=== PATIENT | female | born 1955 | race Caucasian/White ===

== ENCOUNTER 2018-10-05 08:29 | Inpatient (IN) ==
[2018-10-05] MEDS ORDERED: PROCHLORPERAZINE 5 MG in SYRINGE 4 ML IV ONE (09:17)
[2018-10-05] MEDS ORDERED: MoRPHine SULFATE 4 MG/ML 1 ML CARP\\VIAL IV STA (09:17)
[2018-10-05] MEDS ORDERED: PROCHLORPERAZINE 5 MG/ML 2 ML VIAL ONE (09:24)
[2018-10-05] MEDS ORDERED: MoRPHine SULFATE 2 MG/ML CARP ONE (09:26)
[2018-10-05] MEDS ORDERED: SODIUM CHLORIDE 0.9% 1000ML 1,000 ML IV SCH (09:30)
[2018-10-05 09:37] LABS: Alanine Aminotransferase 31 U/L (12-78); Albumin Level 2.5 gm/dl (3.4-5.0); Aspartate Aminotransferase 29 U/L (15-37); Blood Urea Nitrogen 6 mg/dl (7-18); Calcium 7.7 mg/dl (8.5-10.1); Carbon Dioxide 20 mmol/L (21-32); Chloride 105 mmol/L (98-107); Est GFR (African American) 113.5; Glucose 141 mg/dl (70-99); Potassium 2.8 mmol/L (3.5-5.1); Sodium 138 mmol/L (136-145)
[2018-10-05 09:40] LABS: Albumin Globulin Ratio 0.8 (0.9-2); Alkaline Phosphatase 97 U/L (45-117); Bilirubin,Total 0.8 mg/dl (0.2-1); Globulin 3.3 gm/dl (2.5-4.0); Total Protein 5.8 gm/dl (6.4-8.2)
[2018-10-05] MEDS ORDERED: IOVERSOL 100ml IV PRN (09:59)
[2018-10-05 10:00] LABS: Hematocrit (blood only) 34.6 % (37-47); Hemoglobin 11.4 g/dL (12.0-16.0); Mean Corpuscular Hgb Conc 32.9 g/dL (32-36); Mean Platelet Volume 9.9 fL (7.4-10.4); Nucleated RBC # (auto) 0.05 K/uL (0-0); Nucleated RBC % (auto) 4.2 %; Platelet Count 134 K/uL (130-400); RDW Coefficient of Variation 21.3 % (11.5-14.5); RDW Standard Deviation 62.8 fL (36.4-46.3); Red Blood Count 4.17 M/uL (4.2-5.4); White Blood Count 1.26 K/uL (4.8-10.8)
--- NOTE | 2018-10-05 10:11 | CT Scan Report ---
CT abd pelvis IV con only CT DOSE: 377.09 mGy.cm HISTORY: Pain lower abd pain, diarrhea, vomiting TECHNIQUE: Multiaxial CT images of the abdomen and pelvis were performed following the use of intrave nous contrast. A dose lowering technique was utilized adhering to the principles of ALARA. COMPARISON STUDY: 04/26/2018 FINDINGS: Lung bases are clear. Several calcified granulomas posterior left costophrenic angle. There is trace map. Splenic free fluid. Findings of mild fatty replacement of the liver. No evidence for gallbladder distention. Kidneys enhance uniformly. There are several microcysts present. No evidence for hydronephrosis. Evaluation of the bowel pattern shows evidence for considerable wall thickening of the mid to distal small bowel. This is most prominent throughout the distal ileum extending to the right right ileoceca l valve. There is small amount of reactive free fluid within the left and to lesser extent right paracolic gut ter. The colonic bowel pattern in general is nonobstructive. There is no significant wall thickening of th e colon. The appearance most consistent with that of a diffuse small bowel inflammatory process possibly inclu ding the possibility of diffuse Crohn's disease. No evidence for abscess collection or obstructive ch dacia. Bladder is midline. There are no contained calcifications. IMPRESSION: 1. Significant wall thickening and inflammatory change of the mid to distal small bowel. 2. Moderate reactive free fluid within the left and to a lesser extent right paracolic gutter as well as a trace amount in the perisplenic region. 3. No evidence for abscess collection or obstruction. 4. Diagnostic considerations must include a diffuse small bowel inflammatory process and/or an extens ko case of Crohn's disease. The above report was generated using voice recognition software. It may contain grammatical, syntax or spelling errors. Electronically signed by: Chinedu Cochran M.D. 10/05/2018 10:09 AM
[2018-10-05 11:01] LABS: Anisocytosis Present; Basophils # (auto) 0.01 K/uL (0-0.2); Basophils % (auto) 0.8 %; Dohle Bodies 1+; Immature Granulocytes # (auto) 0.02 K/uL (0.00-0.02); Immature Granulocytes % (auto) 1.6 %; Lymphocytes # (auto) 0.39 K/uL (1.2-3.4); Monocytes # (auto) 0.68 K/uL (0.11-0.59); Neutrophils # (auto) 0.16 K/uL (1.4-6.5); Neutrophils % (auto) 12.6 %
[2018-10-05 11:29] LABS: Appearance Urine Clear (Clear); Bacteria Urine Automated Negative (Negative); Bilirubin Urine Negative (Negative); Blood Urine Negative (Negative); Color Urine Yellow; Epithelial Cell Urine Auto 20-30 /lpf (0-5); Glucose Urine UA 2+ (Negative); Leukocyte Esterase Urine Negative (Negative); Nitrite Urine Negative (Negative); Protein Urine Trace (Negative); RBC Urine Automated 0-4 /hpf (0-4); Specific Gravity Urine 1.044 (1.000-1.030); Urobilinogen Urine Negative (Negative); pH Urine 5.5 (4.5-7.5)
[2018-10-05 11:34] LABS: Ketones Urine 3+ (Negative)
[2018-10-05] MEDS ORDERED: MoRPHine SULFATE 2 MG/ML CARP IV STA (12:04)
[2018-10-05] MEDS ORDERED: CEFEPIME 2,000 MG in SYRINGE 7.5 ML IV STA (12:56)
[2018-10-05] MEDS ORDERED: metroNIDAZOLE 500 MG/100 ML BAG IV STA (12:56)
--- NOTE | 2018-10-05 13:21 | Emergency Department Note ---
Entered by Yolanda Bennett acting as a scribe for Taras Church DO History of Present Illness General Chief complaint: Abdominal Pain Stated complaint: SEVERE ABD PAIN X 1 WEEK,NASUSEA AND VOMITING Time Seen by Provider: 10/05/18 08:54 Source: patient History of Present Illness Provider complaint: abdominal pain Onset (ago): week(s) 1 Location: abdomen Maximum Pain Intensity: 2 Quality: + other (pain) Associated symptoms: + nausea/vomiting, + weakness and + other (diarrhea); no fever/chills The patient is a 63 year old female who presents to the Emergency Room with complaints of abdominal pain beginning 1 week ago. The patient states that she has had "rumbling" in her stomach. She denies having any fevers but does report having diarrhea several times per day. She reports that she did have diarrhea this morning around 0300. The patient also reports that she was vomiting but states that she has not vomited since yesterday evening. She also reports feeling weak. The patient states that she was seen in a cancer treatment center yesterday and was given fluids. The patient states that she is getting chemotherapy in 2 days. She reports that she started taking Compazine as she thinks that the Zofran that she was taking was making her sick. The patient states that her daughter has been sick. Home Medications Home Medications Medication Instructions Recorded Confirmed Type albuterol sulfate [Ventolin HFA] 2 puff INHALATION Q6H PRN 05/12/18 10/05/18 History cholecalciferol (vitamin D3) 5,000 unit PO 4XWK 05/12/18 10/05/18 History [Vitamin D3] cholecalciferol (vitamin D3) 10,000 unit PO 3XWK 05/12/18 10/05/18 History [Vitamin D3] cyanocobalamin (vitamin B-12) 5,000 mcg SUBLINGUAL QAM 05/12/18 10/05/18 History montelukast [Singulair] 10 mg PO QAM 05/12/18 10/05/18 History fluticasone-vilanterol [Breo 1 puff INHALATION QAM 10/05/18 10/05/18 History Ellipta] potassium chloride 0 meq IV UD 10/05/18 10/05/18 History prochlorperazine Edisylate 0 mg IV UD 10/05/18 10/05/18 History prochlorperazine maleate 10 mg PO Q6H PRN 10/05/18 10/05/18 History [Compazine] Allergies Allergy/AdvReac Type Severity Reaction Status Date / Time doxycycline Allergy Severe SOB Verified 10/05/18 09:46 Penicillins Allergy Severe RASH/HIVES Verified 10/05/18 09:46 ciprofloxacin [From Cipro] AdvReac Severe NAUSEA/VOMI Verified 10/05/18 09:46 TING aspirin AdvReac Unknown H/O Verified 10/05/18 09:46 BLEEDING GASTRIC ULCER Past Med/Surg History Medical History Asthma Cancer COLO-RECTAL CANCER (MARCH 2018). TREATMENT TO START 06/17/18 Peptic ulcer disease H/O BLEEDING ULCER +40 YEARS AGO Lung nodule Left -- SURGICALLY REMOVED 05/14/18. Surgical History H/O nasal polypectomy (Acute) x2 History of endoscopic sinus surgery History of colonoscopy History of section History of esophagogastroduodenoscopy (EGD) History of lobectomy of lung LEFT LOWER LOBECTOMY Social History Visual Impairment: No Limitations Beliefs That Will Affect Care: None Current Living Situation: Family Feels Safe at Home: Yes Smoking Status: Never smoker Hx Alcohol Use: No Hx Substance Use: No Review of Systems See HPI for pertinent positives & negatives. and A total of 10 systems reviewed and were otherwise negative Physical Exam Vital Signs Vital Signs - 24 hr 10/05/18 08:33 10/05/18 09:08 10/05/18 10:28 Temperature 37.8 C H Temperature Source Oral Oral Sepsis Recent Fever Within 48 Hours No Sepsis Action Taken by Nursing No Action Required Pulse Rate 96 H Pulse Rate [Apical] 88 Respiratory Rate 16 18 Respiratory Effort / Characteristics Non-Labored Non-Labored Respiratory Depth Normal Normal Blood Pressure 146/69 H Blood Pressure [Right Arm] 140/89 Blood Pressure Mean 94 Blood Pressure Mean [Right Arm] 106 Blood Pressure Position [Right Arm] Lying Pulse Oximetry 97 96 Oxygen Delivery Method Room Air Room Air 10/05/18 12:10 Temperature Temperature Source Sepsis Recent Fever Within 48 Hours Sepsis Action Taken by Nursing Pulse Rate Pulse Rate [Apical] 111 H Respiratory Rate 22 Respiratory Effort / Characteristics Respiratory Depth Blood Pressure Blood Pressure [Right Arm] 178/80 H Blood Pressure Mean Blood Pressure Mean [Right Arm] 112 Blood Pressure Position [Right Arm] Pulse Oximetry 97 Oxygen Delivery Method Room Air CONSTITUTIONAL/VITAL SIGNS: Reviewed / noted above. GENERAL: Non-toxic in appearance. INTEGUMENTARY: Warm, dry, and [place]. HEAD: Normocephalic. EYES: without scleral icterus or trauma. ENT/OROPHARYNX: clear and moist. LYMPHADENOPATHY/NECK: Is supple without lymphadenopathy or meningismus. RESPIRATORY: Lungs clear and equal. CARDIOVASCULAR: Regular rate and rhythm. GI/ABDOMEN: Soft. Mild lower abdominal tenderness. No organomegaly or pulsatile mass. No rebound or guarding. Normal bowel sounds. EXTREMITIES: Warm and well perfused. BACK: No CVA tenderness. NEUROLOGICAL: Intact without focal deficits. PSYCHIATRIC: normal affect. MUSCULOSKELETAL: Normally developed with good muscle tone. Course 0859: Past medical records reviewed. The patient was evaluated in room A3, and a complete history and physical examination were performed. 1250: I updated the patient who verbalized agreement and understanding of the treatment plan. 1316: I discussed the patient's case with Dr. Boris Khalil who will evaluate the patient for further management. Consultations Consultation #1: Dr. Boris Khalil Time: 13:16 Administered Medications Ioversol (Optiray 320 100ml) 94 ml IV ONCE PRN PRN Reason: Interaction Checking Stop: 10/09/18 09:58 Last Admin: 10/05/18 10:00 Dose: 94 ml Documented by: [id number] Discontinued Medications Prochlorperazine 5 mg/ Syringe 5 mls @ 5 mls/min IV ONE ONE Stop: 10/05/18 09:18 Last Admin: 10/05/18 09:33 Dose: 5 mls/min Documented by: [id number] Sodium Chloride (Nss 1000ml) 1,000 mls @ 999 mls/hr IV .Q1H1M BEV Stop: 10/05/18 10:30 Last Infusion: 10/05/18 11:18 Dose: 0 mls/hr Documented by: [id number] Admin: 10/05/18 09:34 Dose: 999 mls/hr Documented by: [id number] Morphine Sulfate (Morphine Sulfate) 2 mg IV NOW STA Stop: 10/05/18 09:18 Last Admin: 10/05/18 09:34 Dose: Not Given Documented by: [id number] Morphine Sulfate (Morphine Sulfate) Confirm Administered Dose 2 mg .ROUTE .STK- MED ONE Stop: 10/05/18 09:27 Last Admin: 10/05/18 09:33 Dose: 2 mg Documented by: [id number] Morphine Sulfate (Morphine Sulfate) 2 mg IV NOW STA Stop: 10/05/18 12:05 Last Admin: 10/05/18 12:08 Dose: 2 mg Documented by: [id number] Prochlorperazine (Compazine) Confirm Administered Dose 10 mg .ROUTE .STK-MED ONE Stop: 10/05/18 09:25 Last Admin: 10/05/18 09:33 Dose: Not Given Documented by: [id number] Medical Decision Making Differential Diagnosis Differential considered: pancreatitis, hepatitis, or acute cholecystitis, AAA, UTI, pyelonephritis, kidney stones, appendicitis, diverticulitis, shingles, bowel obstruction mesenteric ischemia, ovarian torsion, ruptured ovarian cyst. Medical Records Attestation: I reviewed the patient's medical records. Home Medications Current Medication List: was personally reviewed by me Laboratory Data Attestation: I reviewed the patient's lab results. Result diagrams: 10/05/18 08:50 10/05/18 08:50 Lab Results 10/05/18 10/05/18 10/05/18 Range/Units 08:50 08:50 11:10 WBC 1.26 L (4.8-10.8) K/uL RBC 4.17 L (4.2-5.4) M/uL Hgb 11.4 L (12.0-16.0) g/dL Hct 34.6 L (37-47) % MCV 83.0 (80-100) fL MCH 27.3 (25-34) pg MCHC 32.9 (32-36) g/dL RDW Std Deviation 62.8 H (36.4-46.3) fL RDW Coeff of Mariaelena 21.3 H (11.5-14.5) % Plt Count 134 (130-400) K/uL MPV 9.9 (7.4-10.4) fL Immature Gran % (Auto) 1.6 % Neut % (Auto) 12.6 % Lymph % (Auto) 31.0 % Marion % (Auto) 54.0 % Eos % (Auto) 0.0 % Baso % (Auto) 0.8 % Immature Gran # (Auto) 0.02 (0.00-0.02) K/uL Neut # (Auto) 0.16 L* (1.4-6.5) K/uL Lymph # (Auto) 0.39 L (1.2-3.4) K/uL Marion # (Auto) 0.68 H (0.11-0.59) K/uL Eos # (Auto) 0.00 (0-0.5) K/uL Baso # (Auto) 0.01 (0-0.2) K/uL Absolute Nucleated RBC 0.05 H (0-0) K/uL Nucleated RBC % (auto) 4.2 % Dohle Bodies 1+ Anisocytosis Present Sodium 138 (136-145) mmol/L Potassium 2.8 L (3.5-5.1) mmol/L Chloride 105 (98-107) mmol/L Carbon Dioxide 20 L (21-32) mmol/L Anion Gap 13.0 H (3-11) BUN 6 L (7-18) mg/dl Creatinine 0.57 L (0.6-1.2) mg/dl Est Cr Clr Drug Dosing Not Reportable Est GFR ( Amer) 113.5 Est GFR (Non-Af Amer) 98.0 BUN/Creatinine Ratio 10.0 (10-20) Glucose 141 H (70-99) mg/dl Calcium 7.7 L (8.5-10.1) mg/dl Total Bilirubin 0.8 (0.2-1) mg/dl AST 29 (15-37) U/L ALT 31 (12-78) U/L Alkaline Phosphatase 97 (45-117) U/L Total Protein 5.8 L (6.4-8.2) gm/dl Albumin 2.5 L (3.4-5.0) gm/dl Globulin 3.3 (2.5-4.0) gm/dl Albumin/Globulin Ratio 0.8 L (0.9-2) Lipase 32 L (73-393) U/L Urine Color Yellow Urine Appearance Clear (Clear) Urine pH 5.5 (4.5-7.5) Ur Specific Fowler 1.044 H (1.000-1.030) Urine Protein Trace H (Negative) Urine Glucose (UA) 2+ H (Negative) Urine Ketones 3+ H (Negative) Urine Blood Negative (Negative) Urine Nitrite Negative (Negative) Urine Bilirubin Negative (Negative) Urine Urobilinogen Negative (Negative) Ur Leukocyte Esterase Negative (Negative) Urine WBC (Auto) 1-5 (0-5) /hpf Urine RBC (Auto) 0-4 (0-4) /hpf U Hyaline Cast (Auto) 1-5 (0-5) /lpf U Epithel Cells (Auto) 20-30 H (0-5) /lpf Urine Bacteria (Auto) Negative (Negative) Imaging Data Radiologist's Impression: Radiology results as stated below per my review and the radiologist's interpretation: CT abd pelvis IV con only CT DOSE: 377.09 mGy.cm HISTORY: Pain lower abd pain, diarrhea, vomiting TECHNIQUE: Multiaxial CT images of the abdomen and pelvis were performed following the use of intravenous contrast. A dose lowering technique was utilized adhering to the principles of ALARA. COMPARISON STUDY: 04/26/2018 FINDINGS: Lung bases are clear. Several calcified granulomas posterior left costophrenic angle. There is trace map. Splenic free fluid. Findings of mild fatty replacement of the liver. No evidence for gallbladder distention. Kidneys enhance uniformly. There are several microcysts present. No evidence for hydronephrosis. Evaluation of the bowel pattern shows evidence for considerable wall thickening of the mid to distal small bowel. This is most prominent throughout the distal ileum extending to the right right ileocecal valve. There is small amount of reactive free fluid within the left and to lesser extent right paracolic gutter. The colonic bowel pattern in general is nonobstructive. There is no significant wall thickening of the colon. The appearance most consistent with that of a diffuse small bowel inflammatory process possibly including the possibility of diffuse Crohn's disease. No evidence for abscess collection or obstructive change. Bladder is midline. There are no contained calcifications. IMPRESSION: 1. Significant wall thickening and inflammatory change of the mid to distal small bowel. 2. Moderate reactive free fluid within the left and to a lesser extent right paracolic gutter as well as a trace amount in the perisplenic region. 3. No evidence for abscess collection or obstruction. 4. Diagnostic considerations must include a diffuse small bowel inflammatory process and/or an extensive case of Crohn's disease. The above report was generated using voice recognition software. It may contain grammatical, syntax or spelling errors. Electronically signed by: Chinedu Cochran M.D. 10/05/2018 10:09 AM Blood Pressure Blood Pressure Findings: Elevated blood pressure Blood Pressure Disposition: further management by hospitalist ELISA Ngo This is a 63-year-old female who presents to the ED with a chief complaint of diffuse abdominal pain for the past week. The patient states that she developed diarrhea as well as some nausea and vomiting the past few days. She states that she had some Zofran at home and use this as well as some Compazine that helped her vomiting a little. Nothing has helped the diarrhea. The patient has a history of rectal cancer and is currently undergoing chemotherapy with Dr. Freeman. She has some diffuse abdominal tenderness on exam. White blood cell count was 1.2 with a absolute neutrophil count of 160. Temperature today is 37.8. She reports a fever of 100 last night. Potassium was 2.8. Urine reveals 3+ ketones. A CT scan of the abdomen pelvis reveals some inflammation of the mid and distal small bowel as well as some moderate reactive free fluid in the left greater than right pericolic letters. The findings could suggest an extensive Crohn's versus a small bowel inflammatory process. The patient was treated with IV fluids as well as some IV morphine and IV Compazine. She was treated with IV cefepime and IV Flagyl. She will be seen by the hospitalist for further inpatient evaluation and care. Impression & Plan Febrile neutropenia, Vomiting, Diarrhea, Ileitis Discharge Plan Visit Data Chief Complaint: Abdominal Pain Stated Complaint: SEVERE ABD PAIN X 1 WEEK,NASUSEA AND VOMITING ED Provider: Taras Church Discharge Problem: Febrile neutropenia, Vomiting, Diarrhea, Ileitis Patient Disposition: Being Evaluated by Hospitalist Forms Stand Alone Forms: Call Back Authorization, [employer] Prescriptions Prescriptions: No Action prochlorperazine maleate [Compazine] 10 mg Tablet 10 mg PO Q6H PRN (Reason: Nausea) RF: 0 Breo Ellipta 100-25 mcg/dose blister with device 1 puff Inhalation QAM RF: 0 potassium chloride 2 mEq/mL Solution IV UD RF: 0 prochlorperazine Edisylate 10 mg/2 mL (5 mg/mL) Solution IV UD RF: 0 montelukast [Singulair] 10 mg Tablet 10 mg PO QAM RF: 0 albuterol sulfate [Ventolin HFA] 90 mcg/actuation Hfa Aerosol Inhaler 2 puff INHALATION Q6H PRN (Reason: SOB) RF: 0 cholecalciferol (vitamin D3) [Vitamin D3] 5,000 unit Tablet 5,000 unit PO 4XWK RF: 0 cholecalciferol (vitamin D3) [Vitamin D3] 5,000 unit Tablet 10,000 unit PO 3XWK RF: 0 cyanocobalamin (vitamin B-12) 3,000 mcg/mL Drops 5,000 mcg SUBLINGUAL QAM RF: 0 Referrals Referrals: Argentina Mcneill D.O. [Primary Care Provider] - Discharge Problem: Vomiting Qualifiers: Vomiting type: unspecified Vomiting Intractability: unspecified Nausea presence: with nausea Qualified Code(s): R11.2 - Nausea with vomiting, unspecified Diarrhea Qualifiers: Diarrhea type: unspecified type Qualified Code(s): R19.7 - Diarrhea, unspecified The scribe's documentation has been prepared under my direction and personally reviewed by me in its entirety. I confirm that the note above accurately reflects all work, treatment, procedures, and medical decision making performed by me.
--- NOTE | 2018-10-05 13:54 | History & Physical Report ---
Date of Service October 05, 2018 Assessment & Plan (1) Febrile neutropenia: 63 y/o F Hx asthma, B12 deficiency, colorectal CA with lung mets - receiving chemotherapy. Presents with nausea/vomiting, abdominal pain and fever. She had a CT on arrival to the ER which displayed mid and distal small bowel inflammation which was hedged as infectious vs inflammatory, possibly Crohn's. She denies diarrhea or constipation presently. Initial labs are notable for neutropenia and hypokalemia. 1) Neutopenia and fever - may be a GI source/enteritis - We will place her on Cipro, Flagyl and have provided Vanc pending culture results due to her PORT and neutropenia. If the GI issues do not resolve with Abx, she will need GI evaluation for a chronic process. 2) Neutropenia - rectal CA - will place on precautions and consult her oncologist 3) Hypokalemia - K and Mag provided 3) Astma - no evidence of exacerbation - cont prescribed inhalers 4) B12 deficiency - PO meds held until AM reassessment Full code - Heparin prophylaxis Total time for this admit including review of pabs, meds, imaging, records - discussion with pt and ER attending - 38 min Present on Admission?: Yes History of Present Illness Chief Complaint: neutropenic fever Primary Care Provider: Argentina Mcneill 63 y/o F Hx asthma, B12 deficiency, colorectal CA with lung mets - receiving chemotherapy. Presents with nausea/vomiting, abdominal pain and fever. She had a CT on arrival to the ER which displayed mid and distal small bowel inflammation which was hedged as infectious vs inflammatory, possibly Crohn's. She denies diarrhea or constipation presently. Initial labs are notable for neutropenia and hypokalemia. PMH: 1) Colorectal CA with lung mets 2) Asthma 3) B12 deficiency Surgical: Mediport L chest Social: Does not drink or smoke Family: Mother due to ovarian CA Father broke his hip at age 90 and did not recover Allergies Allergy/AdvReac Type Severity Reaction Status Date / Time doxycycline Allergy Severe SOB Verified 10/05/18 09:46 Penicillins Allergy Severe RASH/HIVES Verified 10/05/18 09:46 ciprofloxacin [From Cipro] AdvReac Severe NAUSEA/VOMI Verified 10/05/18 09:46 TING aspirin AdvReac Unknown H/O Verified 10/05/18 09:46 BLEEDING GASTRIC ULCER Home Medications Home Medications Medication Instructions Recorded Confirmed Type albuterol sulfate [Ventolin HFA] 2 puff INHALATION Q6H PRN 05/12/18 10/05/18 History cholecalciferol (vitamin D3) 5,000 unit PO 4XWK 05/12/18 10/05/18 History [Vitamin D3] cholecalciferol (vitamin D3) 10,000 unit PO 3XWK 05/12/18 10/05/18 History [Vitamin D3] cyanocobalamin (vitamin B-12) 5,000 mcg SUBLINGUAL QAM 05/12/18 10/05/18 History montelukast [Singulair] 10 mg PO QAM 05/12/18 10/05/18 History fluticasone-vilanterol [Breo 1 puff INHALATION QAM 10/05/18 10/05/18 History Ellipta] potassium chloride 0 meq IV UD 10/05/18 10/05/18 History prochlorperazine Edisylate 0 mg IV UD 10/05/18 10/05/18 History prochlorperazine maleate 10 mg PO Q6H PRN 10/05/18 10/05/18 History [Compazine] Past Med/Surg History Medical History Asthma Cancer COLO-RECTAL CANCER (MARCH 2018). TREATMENT TO START 06/17/18 Peptic ulcer disease H/O BLEEDING ULCER +40 YEARS AGO Lung nodule Left -- SURGICALLY REMOVED 05/14/18. Rectal cancer Surgical History H/O nasal polypectomy (Acute) x2 History of endoscopic sinus surgery History of colonoscopy History of section History of esophagogastroduodenoscopy (EGD) History of lobectomy of lung LEFT LOWER LOBECTOMY Social History Preferred Language: Monegasque Communication Ability: Effective Beliefs That Will Affect Care: None Current Living Situation: Spouse and Family Other Information That Helps Us Care for You: No Feels Safe at Home: Yes Safety Concerns: Feels Safe At This Time Smoking Status: Never smoker Hx Alcohol Use: No Hx Substance Use: No Review of Systems Gen: Fevers, mailaise, weakness ENT: Denies congestion, throat pain, hearing loss Eyes: Denies acute visual changes CV: Denies CP, palpitations Pulmonary: Denies SOB, cough, wheezing GI: + Abdominal and rectal pain, nausea and vomiting Neuro: Denies acute or unilateral weakness, acute gait impairment, headache or acute visual changes Musculoskeletal: Denies joint pain, inflammation Endocrine: Denies polydipsia, polyuria Skin: Denies acute rashes or ulcers Physical Exam Vital Signs (Past 24 Hours): Last Vital Signs Temp 37.8 C H 10/05/18 08:33 Pulse 111 H 10/05/18 12:10 Resp 22 10/05/18 12:10 BP 178/80 H 10/05/18 12:10 Pulse Ox 97 10/05/18 12:10 Physical Exam: General: AAO x 3, no distress - very lethargic ENT: No erythema or exudates, no thrush Eyes: JAMES, EOMI Head and neck: Normocephalic, atraumatic, No JVD, neck is supple. Chest/heart: Nontender, S1,2, RRR, no murmurs, no gallops Lungs: CTAB, no wheezing or crackles Abdomen: Mild, diffuse tenderness Neuro: AAO x 3, speech is clear, no unilateral weakness or loss of sensation, coordination intact Musculoskeletal: No joint inflammation, muscle tenderness, FROM Skin: No acute rashes or ulcers Extremities: No clubbing, cyanosis, edema Results & Data Diagnostic Findings CT abdomen/pelvis 1. Significant wall thickening and inflammatory change of the mid to distal small bowel. 2. Moderate reactive free fluid within the left and to a lesser extent right p aracolic gutter as well as a trace amount in the perisplenic region. 3. No evidence for abscess collection or obstruction. 4. Diagnostic considerations must include a diffuse small bowel inflammatory process and/or an extensive case of Crohn's disease.
[2018-10-05] MEDS ORDERED: HYDROmorphone INJ 0.5 MG/0.5 ML SYR IV STA ×2 (14:38→22:46)
[2018-10-05] MEDS ORDERED: ALBUTEROL HFA 8 GM INHALER INH PRN (15:19)
[2018-10-05] MEDS ORDERED: POLYETHYLENE (MIRALAX) 17 GM PACK PO PRN (15:19)
[2018-10-05] MEDS ORDERED: VANCOMYCIN CONSULT ACTIVE PRN (15:19)
[2018-10-05] MEDS ORDERED: MAGNESIUM SULFATE / D5W 1 GM/100 ML BAG IV ONE (15:19)
[2018-10-05] MEDS ORDERED: MAGNESIUM HYDROXIDE SUSP 30 ML UDC PO PRN (15:19)
[2018-10-05] MEDS ORDERED: ZOLPIDEM TARTRATE 5 MG TAB PO PRN (15:19)
[2018-10-05] MEDS: D5NSS + 20MEQ KCL 20 MEQ/1,000 ML BAG IV SCH (15:40)
[2018-10-05] MEDS: ACETAMINOPHEN 325 MG TAB PO PRN ×2 (15:42→23:06)
[2018-10-05] MEDS: POTASSIUM CHLORIDE / WTR 10 MEQ/100 ML PLCT IV SCH ×4 (15:42→20:36)
[2018-10-05] MEDS ORDERED: VANCOMYCIN HCL 2,000 MG in SODIUM CHLORIDE 0.9% 500 ML IV ONE (16:00)
[2018-10-05 16:44] LABS: INR 1.5 (0.9-1.1); Partial Thromboplastin Time 27.8 Seconds (21.0-31.0); Prothrombin Time 14.8 Seconds (9.0-12.0)
[2018-10-05] MEDS: HEPARIN SOD 5,000 UNIT/0.5 ML VIAL SQ SCH ×2 (17:53→22:22)
[2018-10-05] MEDS: PATIENT'S HEIGHT AND/OR WEIGHT NEEDED SCH ×2 (19:42→20:37)
[2018-10-05] MEDS: CIPROFLOXACIN 400 MG/200 ML BAG IV SCH (20:34)
[2018-10-06] MEDS: VANCOMYCIN HCL 1,000 MG in SODIUM CHLORIDE 0.9% 250 ML IV SCH ×3 (01:26→22:31)
[2018-10-06] MEDS ORDERED: HYDROmorphone INJ 0.5 MG/0.5 ML SYR IV STA (03:21)
[2018-10-06] MEDS: HEPARIN SOD 5,000 UNIT/0.5 ML VIAL SQ SCH ×3 (05:51→21:43)
[2018-10-06] MEDS: D5NSS + 20MEQ KCL 20 MEQ/1,000 ML BAG IV SCH (05:51)
[2018-10-06] MEDS: PATIENT'S HEIGHT AND/OR WEIGHT NEEDED SCH (05:56)
[2018-10-06 07:16] LABS: Hematocrit (blood only) 33.4 % (37-47); Hemoglobin 10.9 g/dL (12.0-16.0); Mean Corpuscular Hgb Conc 32.6 g/dL (32-36); Mean Corpuscular Volume 82.3 fL (80-100); Mean Platelet Volume 9.9 fL (7.4-10.4); Nucleated RBC # (auto) 0.07 K/uL (0-0); Nucleated RBC % (auto) 2.3 %; Platelet Count 157 K/uL (130-400); RDW Coefficient of Variation 21.3 % (11.5-14.5); RDW Standard Deviation 63.1 fL (36.4-46.3); Red Blood Count 4.06 M/uL (4.2-5.4); White Blood Count 2.86 K/uL (4.8-10.8)
[2018-10-06] MEDS ORDERED: MoRPHine SULFATE 4 MG/ML 1 ML CARP\\VIAL IV PRN (07:25)
[2018-10-06 07:30] LABS: BUN Creatinine Ratio 9.5 (10-20); Calcium 7.5 mg/dl (8.5-10.1); Est GFR (African American) 93.1; Est GFR (Non-African American) 80.3; Magnesium 1.8 mg/dl (1.8-2.4); Potassium 3.6 mmol/L (3.5-5.1)
[2018-10-06] MEDS: CIPROFLOXACIN 400 MG/200 ML BAG IV SCH ×2 (08:02→21:31)
[2018-10-06] MEDS ORDERED: HYDROmorphone INJ 2 MG/ML SYR/VIAL IV PRN (08:25)
[2018-10-06 08:42] LABS: Dohle Bodies 1+; Giant Platelets 1+; Toxic Granulation 1+; Toxic Vacuolation 1+
[2018-10-06 08:48] LABS: Eosinophils # (manual) 0.03 K/uL (0-0.5); Eosinophils % (manual) 0.9 %; Lymphocytes % (manual) 55.9 %; Metamyelocytes # (manual) 0.08 K/uL (0-0); Metamyelocytes % (manual) 2.7 %; Monocytes # (manual) 0.67 K/uL (0.11-0.59); Monocytes % (manual) 23.4 %; Myelocytes # (manual) 0.13 K/uL (0-0); Myelocytes % (manual) 4.5 %; Neutrophils % (manual) 12.6 %
[2018-10-06] MEDS: MONTELUKAST SODIUM 10 MG TABLET PO SCH (09:04)
--- NOTE | 2018-10-06 10:56 | Pharmacy Report ---
Pharmacy Abx Initial Consult - Date of Service October 06, 2018 - Pharmacy Dosing Scope Date of Consult: 10/05/18 Consultation requested by: Dr. Chapa Pharmacy is consulted to initiate Vancomycin IV dosing therapy, order appropriate labs and adjust drug dose/frequency. - Subjective The patient is a 63 year old F admitted on 10/05/18 13:43. - Objective Height: 5 ft 6 in Weight: 74.1 kg Vital Signs (Past 12hrs): Vital Signs Temp Pulse Resp BP Pulse Ox 10/06/18 07:29 36.7 C 112 H 18 125/76 93 10/06/18 04:29 36.5 C 102 H 20 134/81 94 10/05/18 23:03 39.3 C H 108 H 20 122/78 93 Lab Results (24hrs): Laboratory Tests (24 Hours) 10/06/18 10/06/18 10/05/18 06:12 06:12 08:50 WBC 2.86 L Neut # (Auto) 0.16 L* Creatinine 0.78 Est Cr Clr Drug Dosing 75.0 Micro Results: 10/05/18 08:50 Blood Culture - Pending Blood 10/05/18 13:45 Blood Culture - Pending Blood - Assessment & Plan Assessment 63 year old F admitted with febrile neutropenia. Patient being treated with vancomycin and cipro IV. * colorectal cancer with lung mets currently on chemotherapy * suspected GI source vs. enteritis * abd/pelvic CT shows no evidence of abscess or obstruction, likely diffuse small bowel inflammatory process and/or extensive case of Crohn's disease * coverage with vancomycin added for possible port infection * discussed the need for anaerobic coverage with Dr. Mary; will defer for now as he suspects symptoms may be due to C.diff infection, less concern for intraabdominal infection - stool pending Plan Vancomycin IV * Estimated PK Parameters: Evan 0.087 hr-1, t1/2 8 hr * Loading dose: 2000 mg (25 mg/kg) * Maintenance dose: 1000 mg IV (13.5 mg/kg) every 10 hours * Goal trough level for febrile neutropenia : 15 to 20 mcg/mL * Trough level ordered for 10/07/18 * If BC results are negative, recommend discontinuation of vancomycin (MRSA unlikely pathogen for GI source) Pharmacy will continue to follow and will adjust dose/frequency as necessary. Thank you.
[2018-10-06] MEDS: ONDANSETRON INJ 2 MG/ML 2 ML VIAL IV PRN (12:34)
[2018-10-06] MEDS: metroNIDAZOLE 500 MG TAB PO SCH ×2 (15:13→21:36)
--- NOTE | 2018-10-06 15:15 | Oncology Consultation ---
Date of Consultation October 06, 2018 Assessment & Plan (1) Ileitis: Her abdominal pain and diarrhea sound like an infectious colitis. She has no prior prior history of similar symptoms to suggest Crohn's disease. Also, being on chemotherapy is immunosuppressive and most autoimmune diseases are, if anything, less active on chemo. If her symptoms are not improving, I might consider a gastroenterology consultation. She is on Avastin, which can cause bowel perforation, but she has no evidence of peritoneal signs, abscess, or free air to suggest such a diagnosis. It also would be a bit unusual for this to be a chemo-related toxicity, given the suddenness of the onset and the severity. I might send her stool for C diff if she is still having diarrhea. Present on Admission?: Yes (2) Cancer: She is on chemotherapy for colorectal cancer. She would have been due for another cycle tomorrow. We can put that on hold for now. Also, her counts are low, so she might have needed a delay anyway. The cytopenias are related to chemo and are already improving. Present on Admission?: Yes History of Present Illness Reason for Consultation: Metastatic colon cancer Abdominal pain Diarrhea Attending Physician: Paras Mary MD, PhD, [facility] History of Present Illness Ms. Burns is a 63 year old woman with metastatic rectal cancer. She is currently receiving chemotherapy with FOLFOX/Avastin and was last treated on 09/23/18. She presented to the ER early yesterday with complaints of abdominal pain and diarrhea. She actually had these same complaints on Thursday. I saw her briefly in the infusion room and suggested a CT. However, her pain was not severe and she looked comfortable, so I suggested we could do it as an outpatient. The following morning, she called again so our nurse referred her to the ER. The pain has been going on for about a week or so and has been associated with diarrhea. She denies any fevers, chills, or sweats. She is feeling better this morning after some pain medication and fluids. Allergies Allergy/AdvReac Type Severity Reaction Status Date / Time doxycycline Allergy Severe SOB Verified 10/05/18 09:46 Penicillins Allergy Severe RASH/HIVES Verified 10/05/18 09:46 ciprofloxacin [From Cipro] AdvReac Severe NAUSEA/VOMI Verified 10/05/18 09:46 TING aspirin AdvReac Unknown H/O Verified 10/05/18 09:46 BLEEDING GASTRIC ULCER morphine AdvReac Dizziness Verified 10/06/18 09:46 Home Medications Home Medications Medication Instructions Recorded Confirmed Type albuterol sulfate [Ventolin HFA] 2 puff INHALATION Q6H PRN 05/12/18 10/05/18 History cholecalciferol (vitamin D3) 5,000 unit PO 4XWK 05/12/18 10/05/18 History [Vitamin D3] cholecalciferol (vitamin D3) 10,000 unit PO 3XWK 05/12/18 10/05/18 History [Vitamin D3] cyanocobalamin (vitamin B-12) 5,000 mcg SUBLINGUAL QAM 05/12/18 10/05/18 History montelukast [Singulair] 10 mg PO QAM 05/12/18 10/05/18 History fluticasone-vilanterol [Breo 1 puff INHALATION QAM 10/05/18 10/05/18 History Ellipta] potassium chloride 0 meq IV UD 10/05/18 10/05/18 History prochlorperazine Edisylate 0 mg IV UD 10/05/18 10/05/18 History prochlorperazine maleate 10 mg PO Q6H PRN 10/05/18 10/05/18 History [Compazine] Patient History Medical History Asthma Cancer COLO-RECTAL CANCER (MARCH 2018). TREATMENT TO START 06/17/18 Peptic ulcer disease H/O BLEEDING ULCER +40 YEARS AGO Lung nodule Left -- SURGICALLY REMOVED 05/14/18. Rectal cancer Surgical History H/O nasal polypectomy (Acute) x2 History of endoscopic sinus surgery History of colonoscopy History of section History of esophagogastroduodenoscopy (EGD) History of lobectomy of lung LEFT LOWER LOBECTOMY Social History Communication Ability: Effective Beliefs That Will Affect Care: None Current Living Situation: Spouse and Family Other Information That Helps Us Care for You: No Feels Safe at Home: Yes Safety Concerns: Feels Safe At This Time Smoking Status: Never smoker Hx Alcohol Use: No Hx Substance Use: No Review of Systems Constitutional: + fatigue; no fever and no chills Eyes: no worsening vision Respiratory: no cough and no dyspnea Cardiovascular: no chest pain and no palpitations Gastrointestinal: as per Subjective / HPI Genitourinary (Female): no dysuria and no urinary frequency Musculoskeletal: no back pain and no joint pain Neurologic: no dizziness and no headache(s) Hematologic / Lymphatic: no easy bleeding and no lymphadenopathy Physical Exam Vital Signs (Past 24 Hours): Last Vital Signs Temp 36.8 C 10/06/18 15:02 Pulse 99 H 10/06/18 15:02 Resp 20 10/06/18 15:02 BP 125/77 10/06/18 15:02 Pulse Ox 94 10/06/18 15:02 Constitutional: + ill appearing (chronically); no acute distress Eyes: + anicteric sclerae and EOM intact bilaterally ENMT: external ear and nose normal, oropharynx normal Respiratory: normal respiratory effort, lungs clear to auscultation Cardiovascular: RRR, no murmur, no edema Gastrointestinal (Abdomen): Inspection/Auscultation: + hyperactive bowel sounds Percussion/Palpation: abdomen soft; abdomen nontender and no guarding Skin: no rashes, warm and dry Psychiatric: A+Ox3, euthymic affect Lymphatic: no cervical or axillary lymphadenopathy Results & Data Laboratory Results Abnormal lab results 10/05/18 10/06/18 10/06/18 Range/Units 16:19 06:12 06:12 WBC 2.86 L (4.8-10.8) K/uL RBC 4.06 L (4.2-5.4) M/uL Hgb 10.9 L (12.0-16.0) g/dL Hct 33.4 L (37-47) % RDW Std Deviation 63.1 H (36.4-46.3) fL RDW Coeff of Mariaelena 21.3 H (11.5-14.5) % Absolute Nucleated RBC 0.07 H (0-0) K/uL Neutrophils # (Manual) 0.36 L (1.4-6.5) K/uL Total Absolute Neuts 0.36 L* (1.4-6.5) K/uL Monocytes # (Manual) 0.67 H (0.11-0.59) K/uL Metamyelocytes # (Man) 0.08 H (0-0) K/uL Myelocytes # (Manual) 0.13 H (0-0) K/uL PT 14.8 H (9.0-12.0) Seconds INR 1.5 H (0.9-1.1) Sodium 135 L (136-145) mmol/L BUN/Creatinine Ratio 9.5 L (10-20) Glucose 149 H (70-99) mg/dl Calcium 7.5 L (8.5-10.1) mg/dl Diagnostic Findings CT A/P 10/05/18: IMPRESSION: 1. Significant wall thickening and inflammatory change of the mid to distal small bowel. 2. Moderate reactive free fluid within the left and to a lesser extent right paracolic gutter as well as a trace amount in the perisplenic region. 3. No evidence for abscess collection or obstruction. 4. Diagnostic considerations must include a diffuse small bowel inflammatory process and/or an extensive case of Crohn's disease.
--- NOTE | 2018-10-06 15:59 | Medical Student Progress Note ---
Date of Service October 06, 2018 Assessment & Plan (1) Ileitis: Week long diarrhea that has now resolved was most likely related to chemo therapy treatment; viral gastroenteritis? Crohns is unlikely given absence of bloody stool; flare or presentation of CD is unlikely during period of immunosu ppression from chemo; would need colonoscopy and bx to r/o CD when pt is no longer immunosuppressed (and only if symptoms persist). Waiting for C. diff results. Neutropenic fever-- no growth yet from blood cultures. cipro and vanc continued. fever likely related to GI symptoms. (2) Cancer: Chemo therapy on 10/07 for CRC delayed. Pts cell counts have been improving Subjective 63yo female with CRC metastatic to lungs only (lung mets were surgically removed and pt receiving chemo) presented with diarrhea and adb pain x 1wk and F/N/V for past few days. CT of abd/pel showed mid and distal small bowel inflammation-- infectious vs inflammatory, possibly Crohn's. ED labs showed neutropenia and hypokalemia. Today pt states she no longer has diarrhea and had one relatively formed BM yesterday; no BM today. No F/C/N/V. Review of Systems REVIEW OF SYSTEMS: GENERAL, CONSTITUTIONAL- 10lb weight loss over several months, no Fever or Chills EYES, VISION- No Visual Changes EARS, NOSE, THROAT- No Hearing loss HEART, CARDIOVASCULAR- No Chest pain or pressure, Arrhythmia or palpitations, Shortness of breath, Peripheral edema, Blood clots, Varicose Veins, Cramping in thighs RESPIRATORY- No Cough, Shortness of breath, Wheezing GASTROINTESTINAL- lower Abdominal pain, no heartburn, Bloody stool GENITOURINARY- No Frequent urination, Urgency MUSCULOSKELETAL- No Joint pain or swelling, Restricted motion, Musculoskeletal pain SKIN & INTEGUMENTARY- No Rashes, Sores, Blisters, Growths NEUROLOGICAL- Numbness and tingling sensations in hands and feet from chemo?, no Sensation loss or Burning PSYCHIATRIC- No Nervousness, anxiety, Depression ENDOCRINE- No Heat or cold intolerance, Excessive thirst HEMATOLOGIC/LYMPHATIC- No Abnormal bleeding, Bleeding ALL/IMMUN- No Allergic reaction, Recurrent infections Physical Exam Vital Signs (Past 24 Hours): Last Vital Signs Temp 36.8 C 10/06/18 15:02 Pulse 99 H 10/06/18 15:02 Resp 20 03/06/19 15:02 BP 125/77 10/06/18 15:02 Pulse Ox 94 10/06/18 15:02 Physical Exam: GENERAL: alter, cooperative, some acute distress HEENT: Head: Atraumatic, normocephalic. Eyes: EOMI, PERRLA Nose: No nasal congestion, normal nares Throat: No tonsillar erythema, exudates, or enlargement. Mouth: Moist mucous membranes, no lesions. Neck: Supple, no JVD, normal thyroid, no cervical LAD. Nervous System: Mental status: Alert and oriented x 3, good concentration. Cranial nerves IIXII grossly intact. Motor: Strength 5/5 in upper ext; 3/5 in lower ext Sensation: Intact to light touch in distal ext Cerebellum: intact finger to nose. Chest/Lung: Clear to auscultation bilaterally. No rales, rhonchi, wheezing, or rubs. Heart: increased rate and normal rhythm. Normal S1, S2. No murmurs, rubs, or gallops. Abdomen: Soft, nontender, nondistended, BS present Extremities: No clubbing, cyanosis, or edema.
[2018-10-06] MEDS ORDERED: Nursing to Pharmacy Communication ONE (16:29)
--- NOTE | 2018-10-06 18:40 | Hospitalist Progress Note ---
Date of Service October 06, 2018 Assessment & Plan (1) Ileitis: (2) Cancer: (3) Febrile neutropenia: (4) Vomiting: (5) Diarrhea: 63 y/o F Hx asthma, B12 deficiency, colorectal CA with lung mets receiving chemotherapy admitted on October 05, 2018 because of neutropenic fever Per report. presents with nausea/vomiting, abdominal pain and fever. CT on arrival to the ER which displayed mid and distal small bowel inflammation which was hedged as infectious vs inflammatory, possibly Crohn's. Neutopenia and fever may be a GI source/enteritis Continue Cipro, Flagyl and Vanc pending culture results due to her PORT and neutropenia. Oncology input appreciated, C. difficile has ordered, no sample yet May need GI consult Neutropenia recent chemo for rectal CA Continue neutropenic precautions and consult her oncologist Axel, vitamin B12 deficiency, continue current medicatio Discussed with patient and at bedside, answered all questions Full code - Heparin prophylaxis Subjective Report lower abdomen pain, no more diarrhea, She denied in chair, pain is better controlled Was spiking up to 39.5, normal fever, Review of Systems Constitutional: Positive weakness, or fatigue Respiratory: no cough, sputum, wheezing, Cardiac: No chest pain, No orthopnea, No PND, Abdomen: See above, no nausea, No vomiting, Musculoskeletal: No joint pain, No muscle pain, No swelling, : No dysuria, No urinary frequency, No incontinence, No hematuria Neurologic: No paralysis, No weakness, No numbness/tingling, Psychiatric: No depression symptoms, No anhedonism, No anxiety, Heme: No abnormal bleeding/bruising, No clotting problems, Skin: No rash, No itch, No new/changing skin lesions, No color change, No bleeding Physical Exam Vital Signs (Past 24 Hours): Last Vital Signs Temp 36.8 C 10/06/18 15:02 Pulse 99 H 10/06/18 15:02 Resp 20 10/06/18 15:02 BP 125/77 10/06/18 15:02 Pulse Ox 94 10/06/18 15:02 Physical Exam: General: AAO x 3, conversational, no distress ENT: No erythema or exudates, no thrush Eyes: JAMES, EOMI Head and neck: Normocephalic, atraumatic, No JVD, neck is supple. Chest/heart: Nontender, S1,2, RRR, no murmurs, no gallops Lungs: CTAB, no wheezing or crackles Abdomen: Mild, diffuse tenderness, more in the lower abdomen Neuro: AAO x 3, speech is clear, no unilateral weakness or loss of sensation, coordination intact Musculoskeletal: No joint inflammation, muscle tenderness, FROM Skin: No acute rashes or ulcers Extremities: No clubbing, cyanosis, edema Results & Data Laboratory Results Laboratory Results - last 24 hr 10/06/18 10/06/18 06:12 06:12 WBC 2.86 L RBC 4.06 L Hgb 10.9 L Hct 33.4 L MCV 82.3 MCH 26.8 MCHC 32.6 RDW Std Deviation 63.1 H RDW Coeff of Mariaelena 21.3 H Plt Count 157 MPV 9.9 Absolute Nucleated RBC 0.07 H Nucleated RBC % (auto) 2.3 Neutrophils % (Manual) 12.6 Lymphocytes % (Manual) 55.9 Monocytes % (Manual) 23.4 Eosinophils % (Manual) 0.9 Metamyelocytes % (Man) 2.7 Myelocytes % (Man) 4.5 Neutrophils # (Manual) 0.36 L Total Absolute Neuts 0.36 L* Lymphocytes # (Manual) 1.60 Total Abs Lymphocytes 1.60 Monocytes # (Manual) 0.67 H Eosinophils # (Manual) 0.03 Metamyelocytes # (Man) 0.08 H Myelocytes # (Manual) 0.13 H Toxic Granulation 1+ Toxic Vacuolation 1+ Dohle Bodies 1+ Giant Platelets 1+ Sodium 135 L Potassium 3.6 D Chloride 105 Carbon Dioxide 21 Anion Gap 9.0 BUN 7 Creatinine 0.78 Est Cr Clr Drug Dosing 75.0 Est GFR ( Amer) 93.1 Est GFR (Non-Af Amer) 80.3 BUN/Creatinine Ratio 9.5 L Glucose 149 H Calcium 7.5 L Magnesium 1.8 (1) Diarrhea Diarrhea type: unspecified type Qualified Code(s): R19.7 - Diarrhea, unspecified (2) Vomiting Nausea presence: with nausea Vomiting Intractability: unspecified Vomiting type: unspecified Qualified Code(s): R11.2 - Nausea with vomiting, unspecified
[2018-10-06] MEDS: POTASSIUM CHLORIDE 10 MEQ in SODIUM CHLORIDE 0.9% 1000ML 1,000 ML IV SCH (21:30)
[2018-10-07 05:57] LABS: Hematocrit (blood only) 28.3 % (37-47); Hemoglobin 9.4 g/dL (12.0-16.0); Mean Corpuscular Hgb Conc 33.2 g/dL (32-36); Mean Corpuscular Volume 82.3 fL (80-100); Nucleated RBC # (auto) 0.03 K/uL (0-0); Nucleated RBC % (auto) 0.3 %; Platelet Count 140 K/uL (130-400); RDW Coefficient of Variation 21.8 % (11.5-14.5); RDW Standard Deviation 65.4 fL (36.4-46.3); Red Blood Count 3.44 M/uL (4.2-5.4); White Blood Count 8.65 K/uL (4.8-10.8)
[2018-10-07] MEDS: HEPARIN SOD 5,000 UNIT/0.5 ML VIAL SQ SCH ×3 (06:17→21:45)
[2018-10-07 06:32] LABS: BUN Creatinine Ratio 28.3 (10-20); Calcium 7.4 mg/dl (8.5-10.1); Est GFR (African American) 118.5; Est GFR (Non-African American) 102.3; Magnesium 1.8 mg/dl (1.8-2.4); Potassium 3.5 mmol/L (3.5-5.1)
[2018-10-07 06:52] LABS: Phosphorus 1.3 mg/dl (2.5-4.9)
[2018-10-07 07:08] LABS: ALC (manual) 2.16 K/uL (1.2-3.4); Anisocytosis Present; Dohle Bodies 1+; Eosinophils # (manual) 0.09 K/uL (0-0.5); Giant Platelets 1+; Lymphocytes # (manual) 2.16 K/uL (1.2-3.4); Metamyelocytes # (manual) 0.43 K/uL (0-0); Monocytes # (manual) 1.21 K/uL (0.11-0.59); Myelocytes # (manual) 0.61 K/uL (0-0); Toxic Granulation 1+
[2018-10-07] MEDS ORDERED: VANCOMYCIN TROUGH ONE (07:30)
[2018-10-07] MEDS: CIPROFLOXACIN 400 MG/200 ML BAG IV SCH ×2 (08:02→19:42)
[2018-10-07] MEDS: VANCOMYCIN HCL 1,000 MG in SODIUM CHLORIDE 0.9% 250 ML IV SCH (08:06)
[2018-10-07] MEDS: metroNIDAZOLE 500 MG TAB PO SCH ×3 (08:09→21:45)
[2018-10-07] MEDS: MONTELUKAST SODIUM 10 MG TABLET PO SCH (08:09)
--- NOTE | 2018-10-07 08:27 | Pharmacy Report ---
Pharmacy Abx Dose Short Note - Date of Service October 07, 2018 - Assessment & Plan Laboratory Tests 10/06/18 10/07/18 10/07/18 06:12 05:13 07:28 Creatinine 0.78 0.50 L Est Cr Clr Drug Dosing 75.0 117.0 Vancomycin Trough 14.1 Assessment 63 year old F receiving IV Vancomycin for neutropenic fever, possible Port infection, colorectal CA with lung mets, receiving chemotherapy. Day # 3 of antimicrobial therapy. Renal function improved. C.diff currently uncollected. Plan Vancomycin * Trough level of 14.1 mcg/mL is almost therapeutic after 4 total doses * Continue dose of 1000 mg IV every 10 hours, as infection is likely GI source, and MRSA not likely pathogen. * Goal trough level for neutropenic fever : 15 to 20 mcg/mL * Trough level ordered for: 10/08/18 prior to 1400 dose to ensure patient is staying therapeutic with increase in renal function Pharmacy will continue to follow and will adjust dose/frequency as necessary. Thank you.
[2018-10-07] MEDS ORDERED: MoRPHine SULFATE 4 MG/ML 1 ML CARP\\VIAL IV PRN (08:55)
--- NOTE | 2018-10-07 08:55 | Hospitalist Progress Note ---
Date of Service October 07, 2018 Assessment & Plan (1) Ileitis: (2) Cancer: Patient received a round of chemotherapy for her colorectal carcinoma (3) Febrile neutropenia: Neutopenia and fever -patient has resolved neutropenia. No additional fever. Due to changes on initial imaging to suggest an ileitis we will continue Cipro, Flagyl but discontinue vancomycin (4) Vomiting: (5) Diarrhea: Diarrhea has resolved, CT on arrival to the ER which displayed mid and distal small bowel inflammation which was hedged as infectious vs inflammatory Patient has hypophosphatemia which was repleted intravenously on 10/07 Patient overall feels weak and is considering subacute rehab placement PT OT consultations are ordered and's case management is alert Subjective Patient is thinks she is feeling better but not quite back to her normal state. She is concerned about going home due to her 's medical problems. She is is encouraged to try to eat more substantial diet her nausea vomiting abdominal pain resolved. She was having some challenges with her pain med causing some unpleasant side effects requested to be transitioned from Dilaudid to morphine Review of Systems ROS: well nourished well developed. No double vision blurry vision No problems with speech or swallowing No palpitations, chest pain or pressure No Wheezing or breathing issues No abdominal pain nausea vomiting diarrhea No burning urine urine frequency or changes in color No focal joint pain or muscle pain Patient is peeling of the skin of her palm and soles No unusual bruising or bleeding No focused back pain or numbness or loss of strength No changes in memory or confusion Physical Exam Vital Signs (Past 24 Hours): Last Vital Signs Temp 36.7 C 10/07/18 08:24 Pulse 89 10/07/18 08:24 Resp 20 10/07/18 08:24 BP 126/77 10/07/18 08:24 Pulse Ox 96 10/07/18 08:24 The patient appeared well nourished and normally developed. She appears weak and tired Vital signs as documented. Head exam is unremarkable. normocephalic, atraumatic Neck is without jugular venous distension, thyromegaly, or lymphademopathy Lungs are clear to auscultation and percussion. Cardiac exam reveals Rhythm is regular. First and second heart sounds normal. Abdominal exam reveals normal bowel sounds, no masses, no organomegaly Extremities are nonedematous and both pedal pulses are present Neurologic exam is A&Ox3, no focal deficits, strength is equal bilateral Psychologically seems neither anxious or depressed Skin is warm Dry there is peeling skin on her palms and soles (1) Diarrhea Diarrhea type: unspecified type Qualified Code(s): R19.7 - Diarrhea, unspecified (2) Vomiting Nausea presence: with nausea Vomiting Intractability: unspecified Vomiting type: unspecified Qualified Code(s): R11.2 - Nausea with vomiting, unspecified
[2018-10-07] MEDS ORDERED: MoRPHine SULFATE 10 MG/ML CARP/VIAL IV PRN (08:56)
[2018-10-07] MEDS ORDERED: SODIUM PHOSPHATE 3 MMOL/1 ML INFUSION IV STA (08:57)
[2018-10-07] MEDS ORDERED: SODIUM PHOSPHATE 30 MMOL in SODIUM CHLORIDE 0.9% 500 ML IV ONE (09:30)
[2018-10-07] MEDS: POTASSIUM CHLORIDE 10 MEQ in SODIUM CHLORIDE 0.9% 1000ML 1,000 ML IV SCH (13:57)
[2018-10-07] MEDS ORDERED: EUCERIN CR 120 GM JAR EXT PRN (14:27)
--- NOTE | 2018-10-07 15:53 | Medical Student Progress Note ---
Date of Service October 07, 2018 Assessment & Plan (1) Ileitis: 63yo female with metastatic rectal cancer presented with diarrhea and adb pain x 1wk and F/N/V for past few days. CT of abd/pel showed mid and distal small bowel inflammation-- infectious vs inflammatory, possibly Crohn's. ED labs showed neutropenia and hypokalemia. There was concern for neutropenic fever. Week long diarrhea that has now resolved (pt having 1 loose BM each of past two days; pt was on clear liquid diet)-- related to chemo therapy treatment?; gastroenteritis? Crohns is unlikely given absence of bloody stool; flare or presentation of CD is unlikely during period of immunosuppression from chemo; would need colonoscopy and bx to r/o CD when pt is no longer immunosuppressed (and only if symptoms persist). will continue flagyl for gastroenteritis. can advance pt's diet to soft diet from clear liquid-- see how pt tolerates advanced diet. C.diff stool culture not yet collected; still need?- pt no longer having diarrhea. Neutropenic fever-- no growth yet from blood cultures. ANC now 4150 and WBC 8.7. cipro and vanc can be discontinued b/c counts have recovered and pt clinically improved-- afebrile for over 24hrs. fever likely related to GI symptoms most likely. Clear source, such as port, not identified. (2) Cancer: Chemo therapy on 10/07 for CRC delayed. Pts cell counts have been improving Subjective 63yo female with metastatic rectal cancer presented with diarrhea and adb pain x 1wk and F/N/V for past few days. CT of abd/pel showed mid and distal small bowel inflammation-- infectious vs inflammatory, possibly Crohn's. ED labs showed neutropenia and hypokalemia. There was concern for neutropenic fever. Today pt says she is feels fatigued and weak. 1 loose BM yesterday and 1 loose BM today. No F/C/N/V. Pt states she has a lot of mucus production contributing to a slight cough and can cause her nausea. Pt uses a walker in the hospital, but does not use one at home. Pt says she does not need rehab, but just a 1-2 of recovery in hospital. Review of Systems GENERAL, CONSTITUTIONAL- 10lb weight loss over several months, fatigue, weakness, no Fever or Chills HEART, CARDIOVASCULAR- No Chest pain or pressure, Arrhythmia or palpitations, Shortness of breath, Peripheral edema, RESPIRATORY- No Cough, Shortness of breath, Wheezing GASTROINTESTINAL- lower Abdominal pain, no heartburn, or Bloody stool GENITOURINARY- No Frequent urination, Urgency Physical Exam Vital Signs (Past 24 Hours): Last Vital Signs Temp 36.5 C 10/07/18 11:40 Pulse 88 10/07/18 11:40 Resp 20 10/07/18 11:40 BP 126/79 10/07/18 11:40 Pulse Ox 98 10/07/18 11:40 Physical Exam: GENERAL: alter, cooperative, no acute distress, soft voice, appears fatigued HEENT: Nose: No nasal congestion, normal nares Mouth: Moist mucous membranes, no lesions. Nervous System: Motor: Strength 5/5 in upper ext; 3/5 in lower ext Chest/Lung: Clear to auscultation bilaterally. No rales, rhonchi, wheezing, or rubs. Heart: RRR Normal S1, S2. No murmurs, rubs, or gallops. Abdomen: Soft, mild tenderness in lower abd, normoactive BS Extremities: No clubbing, cyanosis, or edema.
[2018-10-08] MEDS: POTASSIUM CHLORIDE 10 MEQ in SODIUM CHLORIDE 0.9% 1000ML 1,000 ML IV SCH ×2 (01:57→14:31)
[2018-10-08] MEDS: HEPARIN SOD 5,000 UNIT/0.5 ML VIAL SQ SCH ×3 (05:50→21:46)
[2018-10-08 07:05] LABS: Creatinine Clr Calc Pharmacy 118.9 ml/min; Est GFR (African American) 118.5; Est GFR (Non-African American) 102.3
[2018-10-08] MEDS: CIPROFLOXACIN 400 MG/200 ML BAG IV SCH (08:21)
[2018-10-08] MEDS: metroNIDAZOLE 500 MG TAB PO SCH ×3 (08:22→21:43)
[2018-10-08] MEDS: MONTELUKAST SODIUM 10 MG TABLET PO SCH (08:22)
[2018-10-08] MEDS ORDERED: SACCHAROMYCES BOULARDII 250 MG CAP PO SCH (13:30)
[2018-10-08] MEDS ORDERED: VANCOMYCIN TROUGH ONE (13:30)
--- NOTE | 2018-10-08 14:44 | Medical Student Progress Note ---
Date of Service October 08, 2018 Assessment & Plan (1) Ileitis: 63yo female with metastatic rectal cancer presented with diarrhea and adb pain x 1wk and F/N/V for past few days. CT of abd/pel showed mid and distal small bowel inflammation-- infectious vs inflammatory, possibly Crohn's. ED labs showed neutropenia and hypokalemia. There was concern for neutropenic fever. Ileitis-- related to chemo therapy treatment?; gastroenteritis? Crohns is unlikely given absence of bloody stool; flare or presentation of CD is unlikely during period of immunosuppression from chemo; would need colonoscopy and bx to r/o CD when pt is no longer immunosuppressed (and only if symptoms persist). will continue flagyl and cipro (transitioning cipro to PO) for a total of 10days. Soft diet advancement caused some diarrhea-- will try a probiotic as the antibiotics altering the normal gut aubrey may be contributing to diarrhea. C.diff stool culture not yet collected-- would like to collect since pt is again having diarrhea. Neutropenic fever-- no growth yet from blood cultures. ANC now 4150 and WBC 8.7. afebrile for over 48hrs. vanc was discontinued on 10/07. fever likely related to GI symptoms most likely. Fever most likely due to transient bacteremia from translocation of bacteria into bloodstream-- illeitis and compromised GI lining due to chemo treatment pt will be d/c to rehab facility as pt experienced relatively quick deconditioning (specifically weakness of LEs) during hospital stay and is currently on chemo for metastatic rectal cancer. (2) Cancer: Chemo therapy on 10/07 for CRC delayed. Pts cell counts have been improving Subjective 63yo female with metastatic rectal cancer presented with diarrhea and adb pain x 1wk and F/N/V for past few days. CT of abd/pel showed mid and distal small bowel inflammation-- infectious vs inflammatory, possibly Crohn's. ED labs showed neutropenia and hypokalemia. There was concern for neutropenic fever. Diet was advanced to soft foods yesterday evening-- experienced diarrhea shortly thereafter and again early this AM Pt says her legs feel very heavy and week-- using a walker in the hospital, but does not use one at home. Pt voices interest in rehab placement. Pt states she is somewhat fatigued, but no F/C/N/V. GENERAL, CONSTITUTIONAL- 10lb weight loss over several months, fatigue, weakness, no Fever or Chills HEART, CARDIOVASCULAR- No Chest pain or pressure, Arrhythmia or palpitations, Shortness of breath, Peripheral edema, RESPIRATORY- No Cough, Shortness of breath, Wheezing GASTROINTESTINAL- +diarrhea, no heartburn, or Bloody stool GENITOURINARY- No Frequent urination, Urgency Physical Exam Vital Signs (Past 24 Hours): Last Vital Signs Temp 36.5 C 10/08/18 11:58 Pulse 75 10/08/18 11:58 Resp 20 10/08/18 07:36 BP 130/80 10/08/18 11:58 Pulse Ox 100 10/08/18 11:58 Physical Exam: GENERAL: alter, cooperative, no acute distress, soft voice, appears fatigued HEENT: Nose: No nasal congestion, normal nares Mouth: Moist mucous membranes, no lesions. Nervous System: Motor: Strength 5/5 in upper ext; 3/5 in lower ext Sensation to light touch intact at distal extremities Chest/Lung: Clear to auscultation bilaterally. No rales, rhonchi, wheezing, or rubs. Heart: RRR Normal S1, S2. No murmurs, rubs, or gallops. Abdomen: Soft, NTND, hyperactive BS Extremities: Desquamation of b/l hands and feet No clubbing, cyanosis, or edema.
--- NOTE | 2018-10-08 15:18 | Hospitalist Progress Note ---
Date of Service October 08, 2018 Assessment & Plan (1) Ileitis: (2) Cancer: Patient received a round of chemotherapy for her colorectal carcinoma on September 23 she subsequently had neutropenic fever (3) Febrile neutropenia: Neutopenia and fever -patient has resolved neutropenia. No additional fever. Due to changes on initial imaging to suggest an ileitis we will continue Cipro, Flagyl but discontinue vancomycin (4) Vomiting: (5) Diarrhea: Diarrhea has returned after instituting full diet, CT on arrival to the ER which displayed mid and distal small bowel inflammation she is in assisted treat with antibiotics we are adding probiotic therapy and rechecking C. difficile Electrolyte abnormalities are replete Patient overall feels weak and is considering subacute rehab placement PT OT co nsultations are ordered and's case management is alert Subjective Patient continues to feel weak and tired. She is have lower extremely weakness requiring use of a walker which is new for her. The patient does not have any focal sensory deficits and overall she feels she is slightly improving she is still interested in considering rehabilitation prior to returning home Review of Systems ROS: well nourished well developed. No double vision blurry vision No problems with speech or swallowing No palpitations, chest pain or pressure No Wheezing or breathing issues No abdominal pain nausea vomiting diarrhea after instituting diet No burning urine urine frequency or changes in color No focal joint pain or muscle pain No skin rashes or oral lesions No unusual bruising or bleeding No focused back pain bilateral lower extremity weakness No changes in memory or confusion Physical Exam Vital Signs (Past 24 Hours): Last Vital Signs Temp 36.5 C 10/08/18 15:06 Pulse 76 10/08/18 15:06 Resp 16 10/08/18 15:06 BP 138/79 10/08/18 15:06 Pulse Ox 100 10/08/18 15:06 The patient appeared chronically ill Vital signs as documented. Head exam is unremarkable. normocephalic, atraumatic Neck is without jugular venous distension, thyromegaly, or lymphademopathy Lungs are clear decreased breath sounds at the bases Cardiac exam reveals Rhythm is regular. First and second heart sounds normal. Abdominal exam hypoactive bowel sounds slightly distended nontender, no masses, no organomegaly Extremities are mildly edematous and both pedal pulses are present Neurologic exam is A&Ox3, leg strength is 3.5/5 equal bilaterally there is no sensory deficits Psychologically seems depressed Skin is warm Dry without bruises or lesions (1) Vomiting Nausea presence: with nausea Vomiting Intractability: unspecified Vomiting type: unspecified Qualified Code(s): R11.2 - Nausea with vomiting, unspecified (2) Diarrhea Diarrhea type: unspecified type Qualified Code(s): R19.7 - Diarrhea, unspecified
[2018-10-08] MEDS: CIPROFLOXACIN 500 MG TAB PO SCH (21:43)
[2018-10-08] MEDS: ONDANSETRON INJ 2 MG/ML 2 ML VIAL IV PRN (22:38)
[2018-10-09] MEDS: POTASSIUM CHLORIDE 10 MEQ in SODIUM CHLORIDE 0.9% 1000ML 1,000 ML IV SCH (03:08)
[2018-10-09] MEDS: HEPARIN SOD 5,000 UNIT/0.5 ML VIAL SQ SCH ×3 (05:59→20:20)
[2018-10-09 06:51] LABS: Est GFR (African American) 126.5; Est GFR (Non-African American) 109.2
[2018-10-09] MEDS: metroNIDAZOLE 500 MG TAB PO SCH ×3 (08:58→20:18)
[2018-10-09] MEDS: CIPROFLOXACIN 500 MG TAB PO SCH (08:59)
[2018-10-09] MEDS: MONTELUKAST SODIUM 10 MG TABLET PO SCH (08:59)
[2018-10-09 09:39] LABS: BUN Creatinine Ratio 12.3 (10-20); Calcium 7.5 mg/dl (8.5-10.1); Creatinine Clr Calc Pharmacy 145.9 ml/min; Est GFR (African American) 126.5; Est GFR (Non-African American) 109.2; Potassium 2.6 mmol/L (3.5-5.1)
[2018-10-09] MEDS ORDERED: MAGNESIUM SULFATE / D5W 1 GM/100 ML BAG IV ONE (10:30)
[2018-10-09] MEDS ORDERED: Nursing to Pharmacy Communication ONE (12:07)
[2018-10-09] MEDS: POTASSIUM CHLORIDE 40 MEQ in SODIUM CHLORIDE 0.9% 1000ML 1,000 ML IV SCH ×2 (12:12→23:45)
[2018-10-09] MEDS: POTASSIUM CHLORIDE 20 MEQ TABCR PO SCH ×2 (12:52→20:18)
--- NOTE | 2018-10-09 16:19 | Hospitalist Progress Note ---
Date of Service October 09, 2018 Assessment & Plan (1) Ileitis: Patient was started on oral Cipro she is has an intolerance of this did return with some nausea. This was held the patient only be continued on metronidazole at this time (2) Cancer: Patient received a round of chemotherapy for her colorectal carcinoma on September 23 she subsequently had neutropenic fever this resolved and her counts have been rescued (3) Febrile neutropenia: Neutopenia and fever -patient has resolved neutropenia. No additional fever. Due to changes on initial imaging to suggest an ileitis we will continue Flagyl but discontinue other antibiotics (4) Vomiting: Resolved (5) Diarrhea: Diarrhea has returned after instituting full diet, CT on arrival to the ER which displayed mid and distal small bowel inflammation she is in assisted treat with antibiotics we are adding probiotic therapy and if diarrhea continues we will be rechecking C. difficile Electrolyte abnormalities persist with hypokalemia she will be repleted by oral and intravenous supplementation Patient overall feels weak but is improving. She is still considering subacute rehab placement Subjective Patient does not feel significantly worse despite her low potassium of 2.6. She is encouraged to walk about hoping that she is give more freedom with physical therapy evaluate her. Also She feels slightly better than yesterday. Her at the bedside and updated there is still considering rehab if she continues to improve may reconsider Review of Systems ROS: well nourished well developed mildly weak and tired but improving every day. No double vision blurry vision No problems with speech or swallowing No palpitations, chest pain or pressure No Wheezing or breathing issues No abdominal pain nausea vomiting diarrhea some decreased appetite No burning urine urine frequency or changes in color No focal joint pain or muscle pain No skin rashes or oral lesions No unusual bruising or bleeding No focused back pain or numbness or loss of strength No changes in memory or confusion Physical Exam Vital Signs (Past 24 Hours): Last Vital Signs Temp 36.4 C L 10/09/18 15:50 Pulse 80 10/09/18 15:50 Resp 15 10/09/18 15:50 BP 138/72 10/09/18 15:50 Pulse Ox 100 10/09/18 15:50 the patient appeared mildly fatigued Vital signs as documented. Head exam is unremarkable. normocephalic, atraumatic Neck is without jugular venous distension, thyromegaly, or lymphademopathy Lungs are clear to auscultation and percussion. Cardiac exam reveals Rhythm is regular. First and second heart sounds normal. Abdominal exam reveals normal bowel sounds, no masses, no organomegaly Extremities are nonedematous and both pedal pulses are present Neurologic exam is A&Ox3, no focal deficits, strength is equal bilateral Psychologically seems depressed Skin is warm Dry without bruises or lesions (1) Diarrhea Diarrhea type: unspecified type Qualified Code(s): R19.7 - Diarrhea, unspecified (2) Vomiting Nausea presence: with nausea Vomiting Intractability: unspecified Vomiting type: unspecified Qualified Code(s): R11.2 - Nausea with vomiting, unspecified
[2018-10-09] MEDS ORDERED: POTASSIUM CHLORIDE 20 MEQ TABCR PO SCH (21:00)
[2018-10-10] MEDS: HEPARIN SOD 5,000 UNIT/0.5 ML VIAL SQ SCH ×3 (05:12→20:40)
[2018-10-10 06:16] LABS: Creatinine Clr Calc Pharmacy 107.2 ml/min; Est GFR (African American) 114.2; Est GFR (Non-African American) 98.5
[2018-10-10] MEDS: metroNIDAZOLE 500 MG TAB PO SCH ×3 (09:38→20:40)
[2018-10-10] MEDS: POTASSIUM CHLORIDE 20 MEQ TABCR PO SCH (09:39)
[2018-10-10] MEDS: MONTELUKAST SODIUM 10 MG TABLET PO SCH (09:39)
[2018-10-10] MEDS: POTASSIUM CHLORIDE 40 MEQ in SODIUM CHLORIDE 0.9% 1000ML 1,000 ML IV SCH (12:04)
--- NOTE | 2018-10-10 15:05 | Hospitalist Progress Note ---
Date of Service October 10, 2018 Assessment & Plan (1) Ileitis: Patient was started on oral Cipro she is has an intolerance of this did return with some nausea. This was held the patient only be continued on metronidazole at this time she has symptoms have resolved she has no further complaints with regard to nausea (2) Cancer: Patient received a round of chemotherapy for her colorectal carcinoma on September 23 she subsequently had neutropenic fever this resolved and her counts have been rescued (3) Febrile neutropenia: Neutopenia and fever -patient has resolved neutropenia. No additional fever. Due to changes on initial imaging to suggest an ileitis we will continue Flagyl but discontinue other antibiotics (4) Vomiting: Resolved (5) Diarrhea: Diarrhea has resolved. Previous CT on arrival to the ER which displayed mid and distal small bowel inflammation continue with the metronidazole and probiotic therapy Electrolyte abnormalities persist with hypokalemia she will be repleted by oral and intravenous supplementation Patient overall feels weak but is improving. She is still considering subacute rehab placement Subjective Patient has no new complaints or problems today. She is had no abdominal distress since discontinuation of ciprofloxacin. She is able to ambulate in the halls and is feeling stronger Review of Systems ROS: Generally feels weak and fatigued No double vision blurry vision No problems with speech or swallowing No palpitations, chest pain or pressure No Wheezing or breathing issues No abdominal pain nausea vomiting diarrhea changes in appetite or weight No burning urine urine frequency or changes in color No focal joint pain or muscle pain No skin rashes or oral lesions No unusual bruising or bleeding No focused back pain or numbness or loss of strength but generally feels weak No changes in memory or confusion Physical Exam Vital Signs (Past 24 Hours): Last Vital Signs Temp 36.6 C 10/10/18 12:26 Pulse 74 10/10/18 12:26 Resp 16 10/10/18 12:26 BP 133/80 10/10/18 12:26 Pulse Ox 100 10/10/18 12:26 The patient appeared weak and fatigued Vital signs as documented. Head exam is unremarkable. normocephalic, atraumatic Neck is without jugular venous distension, thyromegaly, or lymphademopathy Lungs are clear to auscultation and percussion. Cardiac exam reveals Rhythm is regular. First and second heart sounds normal. Abdominal exam reveals normal bowel sounds, no masses, no organomegaly Extremities are nonedematous and both pedal pulses are present Neurologic exam is A&Ox3, no focal deficits, strength is equal bilateral Psychologically seems depressed but improving Skin is warm Dry without bruises or lesions (1) Vomiting Nausea presence: with nausea Vomiting Intractability: unspecified Vomiting type: unspecified Qualified Code(s): R11.2 - Nausea with vomiting, unspecified (2) Diarrhea Diarrhea type: unspecified type Qualified Code(s): R19.7 - Diarrhea, unspecified
[2018-10-10 15:39] LABS: Hematocrit (blood only) 26.8 % (37-47); Hemoglobin 8.8 g/dL (12.0-16.0); Mean Corpuscular Hgb Conc 32.8 g/dL (32-36); Mean Corpuscular Volume 82.2 fL (80-100); Mean Platelet Volume 9.9 fL (7.4-10.4); Nucleated RBC # (auto) 0.08 K/uL (0-0); Nucleated RBC % (auto) 0.7 %; Platelet Count 178 K/uL (130-400); RDW Coefficient of Variation 22.3 % (11.5-14.5); RDW Standard Deviation 66.3 fL (36.4-46.3); Red Blood Count 3.26 M/uL (4.2-5.4); White Blood Count 10.22 K/uL (4.8-10.8)
[2018-10-10 16:09] LABS: BUN Creatinine Ratio 2.9 (10-20); Calcium 7.3 mg/dl (8.5-10.1); Creatinine Clr Calc Pharmacy 117.8 ml/min; Est GFR (African American) 117.8; Est GFR (Non-African American) 101.6; Magnesium 1.7 mg/dl (1.8-2.4); Phosphorus 1.6 mg/dl (2.5-4.9); Potassium 3.3 mmol/L (3.5-5.1)
[2018-10-10 16:48] LABS: ALC (manual) 2.31 K/uL (1.2-3.4); Anisocytosis Present; Hypochromasia Present; Lymphocytes # (manual) 2.31 K/uL (1.2-3.4); Lymphocytes % (manual) 22.6 %; Metamyelocytes # (manual) 0.44 K/uL (0-0); Metamyelocytes % (manual) 4.3 %; Monocytes % (manual) 15.7 %; Myelocytes # (manual) 0.17 K/uL (0-0); Myelocytes % (manual) 1.7 %; Neutrophils % (manual) 55.7 %; Polychromasia 1+; Toxic Granulation 2+
[2018-10-10] MEDS ORDERED: SODIUM PHOSPHATE 3 MMOL/1 ML INFUSION IV STA (18:18)
[2018-10-10] MEDS ORDERED: MAGNESIUM SULFATE / D5W 1 GM/100 ML BAG IV ONE (19:00)
[2018-10-10] MEDS ORDERED: SODIUM PHOSPHATE 21 MMOL in SODIUM CHLORIDE 0.9% 500 ML IV ONE (19:30)
[2018-10-11] MEDS: POTASSIUM CHLORIDE 40 MEQ in SODIUM CHLORIDE 0.9% 1000ML 1,000 ML IV SCH ×2 (00:06→12:37)
[2018-10-11] MEDS: HEPARIN SOD 5,000 UNIT/0.5 ML VIAL SQ SCH ×2 (05:12→12:39)
[2018-10-11 06:33] LABS: Creatinine Clr Calc Pharmacy 114.9 ml/min
[2018-10-11] MEDS: metroNIDAZOLE 500 MG TAB PO SCH ×2 (08:27→12:39)
[2018-10-11] MEDS: MONTELUKAST SODIUM 10 MG TABLET PO SCH (08:27)
--- NOTE | 2018-10-19 11:42 | Discharge Summary ---
Date of Service October 11, 2018 Admission HPI Per Admitting Provider 63 y/o F Hx asthma, B12 deficiency, colorectal CA with lung mets - receiving chemotherapy. Presents with nausea/vomiting, abdominal pain and fever. She had a CT on arrival to the ER which displayed mid and distal small bowel inflammation which was hedged as infectious vs inflammatory, possibly Crohn's. She denies diarrhea or constipation presently. Initial labs are notable for neutropenia and hypokalemia. PMH: 1) Colorectal CA with lung mets 2) Asthma 3) B12 deficiency Surgical: Mediport L chest Social: Does not drink or smoke Family: Mother due to ovarian CA Father broke his hip at age 90 and did not recover Principal Diagnosis ileitis Discharge Exam Vital signs as documented. Head exam is unremarkable. normocephalic, atraumatic Neck is without jugular venous distension, thyromegaly, or lymphademopathy Lungs are clear to auscultation and percussion. Cardiac exam reveals Rhythm is regular. First and second heart sounds normal. Abdominal exam reveals normal bowel sounds, no masses, no organomegaly Extremities are nonedematous and both pedal pulses are present Neurologic exam is A&Ox3, no focal deficits, strength is equal bilateral Psychologically seems depressed but improving Skin is warm Dry without bruises or lesions Discharge Data Allergies Allergy/AdvReac Type Severity Reaction Status Date / Time doxycycline Allergy Severe SOB Verified 10/05/18 09:46 Penicillins Allergy Severe RASH/HIVES Verified 10/05/18 09:46 ciprofloxacin [From Cipro] AdvReac Severe NAUSEA/VOMI Verified 10/05/18 09:46 TING aspirin AdvReac Unknown H/O Verified 10/05/18 09:46 BLEEDING GASTRIC ULCER hydromorphone [From Dilaudid] AdvReac Nightmare Verified 10/07/18 10:46 morphine AdvReac Dizziness Verified 10/06/18 09:46 Consultations 10/05/18 13:17 ED Decision to Admit Stat 10/05/18 15:19 Consult Hematology Routine Ordered Studies 10/05/18 09:12 CT abd pelvis IV con only Stat Hospital Course (1) Ileitis: Patient was started on oral Cipro she is has an intolerance of this did return with some nausea. This was held the patient only be continued on metronidazole at this time she has symptoms have resolved she has no further complaints with regard to nausea. Patient improved and will be discharged on metronidazol. (2) Cancer: Patient received a round of chemotherapy for her colorectal carcinoma on September 23 she subsequently had neutropenic fever this resolved and her counts have been rescued (3) Febrile neutropenia: Neutopenia and fever -patient has resolved neutropenia. No additional fever. Due to changes on initial imaging to suggest an ileitis we will continue Flagyl but discontinue other antibiotics (4) Vomiting: Resolved (5) Diarrhea: Diarrhea has resolved. Previous CT on arrival to the ER which displayed mid and distal small bowel inflammation continue with the metronidazole and probiotic therapy Electrolyte abnormalities persist with hypokalemia she will be repleted by oral and intravenous supplementation Patient overall feels weak but is improving. She is still considering subacute rehab placement Total Time Total Time Spent Total Time Spent (In Minutes): 31 Total Time Includes: Examination of the Patient, Discharge Planning and Medication Reconciliation Discharge Plan Discharge Items Patient Disposition: Home - Home Health Services Reason For Visit: NEUTROPENIC FEVER Discharge Diagnosis: Neutropenic fever Discharge Goals: Decrease discomfort Activity: Resume your previous activity Non-emergency contact: Primary Care Provider Call non-emergency contact if: you have any medication questions Follow-up/Referrals: Argentina Mcneill D.O. [Primary Care Provider] - Diet: Regular Addtl Provider Instructions: Follow up with PCP in 1-2 weeks Script given to recheck potassium, phos and magnesium in 5days. Prescriptions: New metronidazole 500 mg Tablet 500 mg PO TID Qty: 27 RF: 0 potassium chloride 10 mEq capsule, extended release 10 meq PO BID Qty: 10 RF: 0 magnesium 250 mg tablet 250 mg PO BID Qty: 20 RF: 0 [id number]-[id number] 250 mg tablet 1 tab PO BID Qty: 10 RF: 0 Continued prochlorperazine maleate [Compazine] 10 mg Tablet 10 mg PO Q6H PRN (Reason: Nausea) RF: 0 Breo Ellipta 100-25 mcg/dose blister with device 1 puff Inhalation QAM RF: 0 potassium chloride 2 mEq/mL Solution IV UD RF: 0 prochlorperazine Edisylate 10 mg/2 mL (5 mg/mL) Solution IV UD RF: 0 montelukast [Singulair] 10 mg Tablet 10 mg PO QAM RF: 0 albuterol sulfate [Ventolin HFA] 90 mcg/actuation Hfa Aerosol Inhaler 2 puff INHALATION Q6H PRN (Reason: SOB) RF: 0 cholecalciferol (vitamin D3) [Vitamin D3] 5,000 unit Tablet 5,000 unit PO 4XWK RF: 0 cholecalciferol (vitamin D3) [Vitamin D3] 5,000 unit Tablet 10,000 unit PO 3XWK RF: 0 cyanocobalamin (vitamin B-12) 3,000 mcg/mL Drops 5,000 mcg SUBLINGUAL QAM RF: 0 Stand-Alone Forms: Call Back Authorization, [facility] Discharge Orders: Discharge Order (Routine); Ordered 10/11/18 Ordered By: Bonifacio Black Admission Data Admit Date/Time: 10/05/18 13:43 Attending Provider: Bonifacio Black Admit Provider: Jan Chapa Primary Care Provider: Argentina Mcneill Other Providers: Jan Chapa ; Bruce Freeman V ; Paras Mary Service: Medical Other Interventions: Discharge Summary Assessment (RN) Last Done: 10/11/18 15:33 DC Date/Time DO NOT enter until pt leaves facility: 10/11/18 16:41
== END 2018-10-11 16:41 | disposition home health service (06) | DRG 809 ==
LOC: ED 08:29 → 4E 13:43 → SUATTDRO 13:43 → 4E 14:53

== ENCOUNTER 2022-03-17 16:17 | Inpatient (IN) ==
[2022-03-17] MEDS ORDERED: ONDANSETRON INJ 2 MG/ML 2 ML VIAL IV STA (16:37)
--- NOTE | 2022-03-17 16:41 | Emergency Department Note ---
Impression & Plan Neutropenia, Diarrhea, Colitis, Status post chemotherapy, Acute hyponatremia, COVID-19 ED Provider Note NAME: KIM BUCKLEY AGE: 67 SEX: F : 1955 ARRIVES VIA: Walk-In INFORMANT: [Patient] ED PROVIDER(S): [Pankaj Hughes MD] CHIEF COMPLAINT: Fever HISTORY OF PRESENT ILLNESS: The patient is a 67-year-old female presents with 2 or 3 days of fever, diarrhea and nausea. The patient did have chemotherapy 6 days ago. She has had some diarrhea in the past with chemotherapy. She is being treated for metastatic rectal cancer. There has been no stuffy nose or cough. No shortness of breath. She has noticed a raspy voice. No urinary complaints. Diarrhea has been loose and watery, not bloody. She does not really have any abdominal pain. REVIEW OF SYSTEMS: See HPI for pertinent positives and negatives. A total of ten systems were reviewed and were otherwise negative. PMHx/PSHx: See Below SOCIAL HISTORY: See Below. PHYSICAL EXAM: GENERAL: Patient is in no acute distress. HEENT: No acute trauma, normocephalic atraumatic, mucous membranes moist, no nasal congestion, no scleral icterus. NECK: No stridor, no adenopathy, no meningismus, trachea is midline. LUNGS: Clear to auscultation bilaterally, no wheeze, no rhonchi, breath sounds equal. HEART: Mildly tachycardic, regular rhythm, no murmurs. ABDOMEN: Soft, nontender, bowel sounds positive, no peritonitis. EXTREMITIES: No cyanosis or edema, full range of motion of all the joints w ithout pain or difficulty, no signs for acute trauma. NEUROLOGIC: Oriented x 3, no acute motor or sensory deficits, no focal weakness. SKIN: No rash, no jaundice, no diaphoresis. DIFFERENTIAL DIAGNOSIS: Sepsis, UTI, pneumonia, COVID-19, colitis, diverticulitis, bacterial intestinal infection, foodborne or viral illness, chemotherapy reaction, metabolic abnormality, electrolyte abnormalities, cardiac sources, cellulitis, bacteremia, as well as other pathologies. EMERGENCY DEPARTMENT COURSE/PROCEDURES: ECG: Indication was weakness and possible sepsis. The ECG shows a normal sinus rhythm with a rate of 75. There is no ST elevation, no PVCs. The QTc is 446 Continuous Cardiac Monitoring: An order was placed for continuous cardiac monitoring. The monitor shows a rate of 76 with normal sinus rhythm. MEDICAL DECISION MAKING: The patient is not neutropenic. The total white count is 1.33. ANC is 0.88. There is a mild anemia noted. The anemia is baseline for the patient as of late. Platelet count slightly low at 107. Sodium was low 129, no renal failure. Lactic acid level was not elevated making bowel ischemia and/or sepsis less likely. No concerning liver enzyme elevation. The TSH was low but the T4 was normal. Urinalysis showed some contamination, no obvious infection. COVID test returned positive. Influenza and RSV test were negative. Abdominal and pelvis CT does show colitis, no diverticulitis or acute surgical process. Chest x-ray did not show pneumonia or CHF. The patient received IV saline for hydration. She was given IV Zofran and IV Tylenol. The patient presents with diarrhea. She is dehydrated, neutropenic and hyponatremic, she has had a fever. She appears to have colitis by CT imaging. She is COVID-19 positive and status postchemotherapy. The patient is in need of a hospital stay. I did speak with the patient and caser in. The on-call hospitalist was consulted. Past Med/Surg History Medical History Abnormal CT scan, chest Asthma Cancer COLO-RECTAL CANCER (MARCH 2018). TREATMENT TO START 06/17/18 Lung nodule Left -- SURGICALLY REMOVED 05/14/18. Metastatic carcinoma Peptic ulcer disease H/O BLEEDING ULCER +40 YEARS AGO Port-A-Cath in place Rectal cancer Surgical History H/O nasal polypectomy x2 History of section History of colonoscopy History of endoscopic sinus surgery History of esophagogastroduodenoscopy (EGD) History of lobectomy of lung LEFT LOWER LOBECTOMY Social History Smoking Status: Never smoker Second Hand Exposure: No; Hx Alcohol Use: No Hx Substance Use: No Preferred Language: Japanese Communication Ability: Effective Visual Impairment: No Limitations Roll Weigher Required: No Beliefs That Will Affect Care: None Current Living Situation: Spouse and Family Feels Safe at Home: Yes Assistive Devices: Glasses and Walker Allergies Allergies Allergy/AdvReac Type Severity Reaction Status Date / Time doxycycline Allergy Severe SOB Verified 03/05/21 13:19 Penicillins Allergy Intermediate RASH/HIVES Verified 05/24/21 12:57 vancomycin Allergy Intermediate Hives Verified 03/05/21 13:19 aspirin AdvReac Intermediate H/O Verified 05/24/21 12:57 BLEEDING GASTRIC ULCER ciprofloxacin [From Cipro] AdvReac Intermediate NAUSEA/VOMI Verified 05/24/21 12:57 TING hydromorphone [From Dilaudid] AdvReac Intermediate Nightmare Verified 03/05/21 13:19 morphine AdvReac Intermediate Dizziness Verified 03/05/21 13:19 Home Meds Home Medications Medication Instructions Recorded Confirmed cholecalciferol (vitamin D3) 125 5,000 unit PO 4XWK 05/12/18 03/05/21 mcg (5,000 unit) tablet (Vitamin D3) cholecalciferol (vitamin D3) 125 10,000 unit PO 3XWK 05/12/18 03/05/21 mcg (5,000 unit) tablet (Vitamin D3) cyanocobalamin (vitamin B-12) 5,000 mcg sublingual QAM 05/12/18 03/05/21 3,000 mcg/mL sublingual drops magnesium 250 mg tablet 250 mg PO DAILY 01/31/21 03/05/21 potassium chloride 10 mEq 10 meq PO DAILY 01/31/21 03/05/21 capsule,extended release Previous Rx's Medication Instructions Recorded diphenhydramine HCl 25 mg tablet 25 mg PO Q6H PRN allergic reaction 06/05/19 #20 tabs Results & Data (ED) Vital Signs Vital Signs - 24 hr 03/17/22 16:22 03/17/22 16:28 03/17/22 17:31 Temperature 37.1 C Temperature Source Temporal Artery Scan Pulse Rate 86 76 Pulse Rate [Finger] 98 H Pulse Rhythm [Finger] Regular Pulse Strength [Finger] Normal Respiratory Rate 20 22 22 Respiratory Effort / Characteristics Non-Labored Non-Labored Respiratory Depth Normal Normal Respiratory Pattern Regular Blood Pressure 118/72 Blood Pressure [Right Arm] 135/61 Blood Pressure Mean 87 Blood Pressure Mean [Right Arm] 85 Blood Pressure Position [Right Arm] Lying Pulse Oximetry 96 98 95 Oxygen Delivery Method Room Air Room Air Room Air Sepsis Recent Fever Within 48 Hours No Sepsis New/Unexplained Change in Mental Status N/A Sepsis Action Taken by Nursing No Action Required 03/17/22 18:17 03/17/22 19:48 Temperature Temperature Source Pulse Rate Pulse Rate [Finger] 69 68 Pulse Rhythm [Finger] Regular Pulse Strength [Finger] Normal Respiratory Rate 22 16 Respiratory Effort / Characteristics Non-Labored Respiratory Depth Normal Respiratory Pattern Blood Pressure Blood Pressure [Right Arm] 110/66 118/59 L Blood Pressure Mean Blood Pressure Mean [Right Arm] 80 78 Blood Pressure Position [Right Arm] Lying Pulse Oximetry 94 93 Oxygen Delivery Method Room Air Room Air Sepsis Recent Fever Within 48 Hours Sepsis New/Unexplained Change in Mental Status Sepsis Action Taken by Residential Medications Current Medication List: was personally reviewed by me Laboratory Data Attestation: I reviewed the patient's lab results. Result diagrams: 03/17/22 17:21 03/17/22 17:21 Lab Results 03/17/22 03/17/22 03/17/22 Range/Units 17:21 17:21 17:21 WBC 1.33 L (4.8-10.8) K/ul RBC 3.05 L (3.93-5.22) M/uL Hgb 10.5 L (12.0-16.0) g/dl Hct 31.8 L (34.1-44.9) % MCV 104.3 H (80.0-100.0) fL MCH 34.4 H (25.0-34.0) pg MCHC 33.0 (32.0-36.0) g/dL RDW Std Deviation 57.6 H (36.4-46.3) fL RDW Coeff of Mariaelena 14.9 H (11.5-14.5) % Plt Count 107 L (130-400) K/uL MPV 10.5 (9.4-12.3) fL Immature Gran % (Auto) 1.5 % Neut % (Auto) 66.1 % Lymph % (Auto) 21.1 % Butts % (Auto) 11.3 % Eos % (Auto) 0.0 % Baso % (Auto) 0.0 % Neut # (Auto) 0.88 L* (1.4-6.5) K/uL Lymph # (Auto) 0.28 L (1.2-3.4) K/uL Butts # (Auto) 0.15 L (0.24-0.82) K/uL Eos # (Auto) 0.00 (0-0.50) K/uL Baso # (Auto) 0.00 (0-0.2) K/uL Immature Gran # (Auto) 0.02 (0.00-0.02) K/uL Sodium 129 L (136-145) mmol/L Potassium 3.6 (3.5-5.1) mmol/L Chloride 96 L (98-107) mmol/L Carbon Dioxide 24 (21-32) mmol/L Anion Gap 9 (3-11) BUN 17 (6-23) mg/dl Creatinine 0.93 (0.6-1.2) mg/dl Est Cr Clr Drug Dosing 58.0 ml/min Est GFR ( Amer) 73.2 ml/min Est GFR (Non-Af Amer) 63.1 ml/min BUN/Creatinine Ratio 18.3 (10-20) Glucose 114 H (70-99(Fasting)) mg/dl Lactate 0.8 (0.4-2.0) mmol/L Calcium 8.5 (8.5-10.1) mg/dl Magnesium 1.7 (1.7-2.4) mg/dl Total Bilirubin 0.4 (0.2-1.0) mg/dl AST 19 (13-39) U/L ALT 17 (7-52) U/L Alkaline Phosphatase 96 (34-104) U/L Total Protein 7.2 (6.0-8.3) gm/dl Albumin 4.0 (3.4-5.0) gm/dl Globulin 3.2 (2.5-4.0) gm/dl Albumin/Globulin Ratio 1.3 (0.9-2) TSH (0.300-4.500) uIu/ml Free T4 (0.61-1.60) ng/dl Urine Color Urine Appearance (Clear) Urine pH (4.5-7.5) Ur Specific [place] (1.000-1.030) Urine Protein (Negative) Urine Glucose (UA) (Negative) Urine Ketones (Negative) Urine Blood (Negative) Urine Nitrite (Negative) Urine Bilirubin (Negative) Urine Urobilinogen (Negative) Ur Leukocyte Esterase (Negative) Urine WBC (Auto) (0-5) /hpf Urine RBC (Auto) (0-4) /hpf U Hyaline Cast (Auto) (0-5) /lpf U Epithel Cells (Auto) (0-5) /lpf Urine Bacteria (Auto) (Negative) Granular Casts (0) /lpf Urine Yeast SARS-CoV-2 (PCR) (Negative) Influenza Type A (PCR) (Neg) Influenza Type B (PCR) (Neg) RSV (RT-PCR) (Neg) 03/17/22 03/17/22 03/17/22 Range/Units 17:21 17:30 17:30 WBC (4.8-10.8) K/ul RBC (3.93-5.22) M/uL Hgb (12.0-16.0) g/dl Hct (34.1-44.9) % MCV (80.0-100.0) fL MCH (25.0-34.0) pg MCHC (32.0-36.0) g/dL RDW Std Deviation (36.4-46.3) fL RDW Coeff of Mariaelena (11.5-14.5) % Plt Count (130-400) K/uL MPV (9.4-12.3) fL Immature Gran % (Auto) % Neut % (Auto) % Lymph % (Auto) % Butts % (Auto) % Eos % (Auto) % Baso % (Auto) % Neut # (Auto) (1.4-6.5) K/uL Lymph # (Auto) (1.2-3.4) K/uL Butts # (Auto) (0.24-0.82) K/uL Eos # (Auto) (0-0.50) K/uL Baso # (Auto) (0-0.2) K/uL Immature Gran # (Auto) (0.00-0.02) K/uL Sodium (136-145) mmol/L Potassium (3.5-5.1) mmol/L Chloride (98-107) mmol/L Carbon Dioxide (21-32) mmol/L Anion Gap (3-11) BUN (6-23) mg/dl Creatinine (0.6-1.2) mg/dl Est Cr Clr Drug Dosing ml/min Est GFR ( Amer) ml/min Est GFR (Non-Af Amer) ml/min BUN/Creatinine Ratio (10-20) Glucose (70-99(Fasting)) mg/dl Lactate (0.4-2.0) mmol/L Calcium (8.5-10.1) mg/dl Magnesium (1.7-2.4) mg/dl Total Bilirubin (0.2-1.0) mg/dl AST (13-39) U/L ALT (7-52) U/L Alkaline Phosphatase (34-104) U/L Total Protein (6.0-8.3) gm/dl Albumin (3.4-5.0) gm/dl Globulin (2.5-4.0) gm/dl Albumin/Globulin Ratio (0.9-2) TSH 0.221 L (0.300-4.500) uIu/ml Free T4 0.73 (0.61-1.60) ng/dl Urine Color Dark Yellow Urine Appearance Cloudy A (Clear) Urine pH 5.0 (4.5-7.5) Ur Specific [place] 1.035 H (1.000-1.030) Urine Protein 1+ H (Negative) Urine Glucose (UA) Negative (Negative) Urine Ketones 2+ H (Negative) Urine Blood 1+ H (Negative) Urine Nitrite Negative (Negative) Urine Bilirubin 1+ H (Negative) Urine Urobilinogen Negative (Negative) Ur Leukocyte Esterase Negative (Negative) Urine WBC (Auto) 1-5 (0-5) /hpf Urine RBC (Auto) 0-4 (0-4) /hpf U Hyaline Cast (Auto) 5-10 H (0-5) /lpf U Epithel Cells (Auto) >30 H (0-5) /lpf Urine Bacteria (Auto) Negative (Negative) Granular Casts 1-5 H (0) /lpf Urine Yeast Not Reportable SARS-CoV-2 (PCR) POSITIVE A* (Negative) Influenza Type A (PCR) Negative (Neg) Influenza Type B (PCR) Negative (Neg) RSV (RT-PCR) Negative (Neg) Administered Medications Discontinued Medications Acetaminophen (Acetaminophen 1000 Mg/100 Ml Iv) 1,000 mg IV NOW STA Stop: 03/17/22 16:43 Last Admin: 03/17/22 17:25 Dose: 1,000 mg Documented By: CCM Sodium Chloride (Nss 1000ml) 1,000 mls @ 999 mls/hr IV .Q1H1M BEV Stop: 03/17/22 17:45 Last Infusion: 03/17/22 18:29 Dose: 0 mls/hr Documented By: Admin: 03/17/22 17:25 Dose: 999 mls/hr Documented By: STEFANIE Ioversol (Optiray 300 100ml) 87 ml IV ONCE ONE Stop: 03/17/22 19:03 Last Admin: 03/17/22 19:03 Dose: 87 ml Documented By: BLAYNE Ondansetron HCl (Ondansetron Inj 2 Mg/Ml 2 Ml Vial) 4 mg IV NOW STA Stop: 03/17/22 16:38 Last Admin: 03/17/22 17:26 Dose: 4 mg Documented By: STEFANIE Imaging Data Radiologist's Impression: Abdomen/Pelvis CT 03/17/22 16:[address] WITH IV CONTRAST CT DOSE: 501.22 mGy.cm HISTORY: Generalized abdominal pain. TECHNIQUE: Multiaxial CT images of the abdomen and pelvis were performed following the use of intravenous contrast. A dose lowering technique was utiliz ed adhering to the principles of ALARA. COMPARISON STUDY: Abdomen and pelvis CT 02/28/2022. FINDINGS: Pulmonary metastatic disease is again noted. This is similar to the prior study. Prior wedge resections within the left lung base. No pneumoperiton eum. No pneumatosis. No suspicious lytic or blastic osseous lesions. The gallbladder is mildly distended. No gallbladder wall thickening. There are few punctate gallstones identified. No hepatic or splenic masses. The adrenal glands, pancreas, and kidneys are unremarkable. No hydronephrosis. No retr operitoneal lymphadenopathy. The bladder, uterus, bilateral adnexa are unremarkable. Mild circumferential thickening involving of the majority the colon including the rectum consistent with a nonspecific proctocolitis. This is most pronounced within the descending colon and sigmoid colon. The colon is fluid-filled. There are few colonic diverticula. No evidence for acute diverticulitis. No evidence for bowel obstruction. Normal appendix. The major mesenteric vessels appear patent. There again noted a few scattered subcentimeter soft tissue nodules within the omentum/peritoneal linings. Dominan t soft tissue nodule within the left upper quadrant image 97 measures 6 mm. This is concerning for a peritoneal carcinomatosis. IMPRESSION: 1. Mild circumferential thickening involving the majority of the colon and rectum consistent with a nonspecific colitis. This favors an infectious or inflammatory process. 2. Pulmonary metastatic disease, unchanged. 3. A few scattered subcentimeter soft tissue nodules within the ome ntum/peritoneal linings again noted. This is concerning for metastatic peritoneal carcinomatosis. 4. Cholelithiasis. ACT 112: Negative or not required by law. Electronically signed by: Neo Woods M.D. 03/17/2022 7:16 PM Chest X-Ray 03/17/22 16:37 XR chest 1V portable CLINICAL HISTORY: Weakness. Rectal cancer. COMPARISON STUDY: Chest CT February 28, 2022. FINDINGS: Left internal jugular [id number] is in place. There is no pneumothorax or pleural effusion. Cardiomediastinal silhouette is normal. There is no consolidation to suggest pneumonia. Numerous nodular densities throughout the lungs correspond to lesions shown on chest CT of February 28, 2022. Appearance of the chest is unchanged. IMPRESSION: 1. No acute cardiopulmonary findings. 2. Numerous pulmonary metastases, similar to prior chest CT. ACT 112: Negative or not required by law. Electronically signed by: Tony Lucas M.D. 03/17/2022 6:07 PM Discharge Plan Visit Data Chief Complaint: Fever Stated Complaint: FEVER, CHEMO ED Provider: Pankaj Hughes Discharge Problem: Neutropenia, Diarrhea, Colitis, Status post chemotherapy, Acute hyponatremia, COVID-19 Patient Disposition: Admitted As Inpatient Condition: Fair Forms Stand Alone Forms: [facility] [place] [facility] Prescriptions Prescriptions: No Action cholecalciferol (vitamin D3) [Vitamin D3] 5,000 unit Tablet 5,000 unit PO 4XWK Rx Instructions: Thursday,Thursday,,Thursday cholecalciferol (vitamin D3) [Vitamin D3] 5,000 unit Tablet 10,000 unit PO 3XWK Rx Instructions: Thursday,Thursday,Thursday cyanocobalamin (vitamin B-12) 3,000 mcg/mL Drops 5,000 mcg SUBLINGUAL QAM diphenhydramine HCl 25 mg tablet 25 mg PO Q6H PRN (Reason: allergic reaction) Qty: 20 0RF Rx Instructions: until resolution of severe allergic reaction potassium chloride 10 mEq capsule, extended release 10 meq PO DAILY magnesium 250 mg tablet 250 mg PO DAILY Referrals Referrals: Argentina Mcneill D.O. [Primary Care Provider] -
[2022-03-17] MEDS ORDERED: ACETAMINOPHEN 1000 MG/100 ML IV IV STA (16:42)
[2022-03-17] MEDS ORDERED: SODIUM CHLORIDE 0.9% 1000ML 1,000 ML IV SCH (16:45)
[2022-03-17 17:38] LABS: Hematocrit (blood only) 31.8 % (34.1-44.9); Hemoglobin 10.5 g/dl (12.0-16.0); Mean Platelet Volume 10.5 fL (9.4-12.3); Platelet Count 107 K/uL (130-400); White Blood Count 1.33 K/ul (4.8-10.8)
[2022-03-17 17:54] LABS: Appearance Urine Cloudy (Clear); Bacteria Urine Automated Negative (Negative); Bilirubin Urine 1+ (Negative); Blood Urine 1+ (Negative); Color Urine Dark Yellow; Epithelial Cell Urine Auto >30 /lpf (0-5); Glucose Urine UA Negative (Negative); Ketones Urine 2+ (Negative); Leukocyte Esterase Urine Negative (Negative); Nitrite Urine Negative (Negative); Protein Urine 1+ (Negative); RBC Urine Automated 0-4 /hpf (0-4); Specific Gravity Urine 1.035 (1.000-1.030); Urobilinogen Urine Negative (Negative)
[2022-03-17 18:01] LABS: Albumin Globulin Ratio 1.3 (0.9-2); BUN Creatinine Ratio 18.3 (10-20); Bilirubin,Total 0.4 mg/dl (0.2-1.0); Calcium 8.5 mg/dl (8.5-10.1); Est GFR (African American) 73.2 ml/min; Est GFR (Non-African American) 63.1 ml/min; Globulin 3.2 gm/dl (2.5-4.0); Magnesium 1.7 mg/dl (1.7-2.4); Potassium 3.6 mmol/L (3.5-5.1); Total Protein 7.2 gm/dl (6.0-8.3)
[2022-03-17 18:06] LABS: Immature Granulocytes # (auto) 0.02 K/uL (0.00-0.02); Immature Granulocytes % (auto) 1.5 %; Lymphocytes # (auto) 0.28 K/uL (1.2-3.4); Lymphocytes % (auto) 21.1 %; Mean Corpuscular Hemoglobin 34.4 pg (25.0-34.0); Mean Corpuscular Volume 104.3 fL (80.0-100.0); Monocytes # (auto) 0.15 K/uL (0.24-0.82); Monocytes % (auto) 11.3 %; Neutrophils # (auto) 0.88 K/uL (1.4-6.5); Neutrophils % (auto) 66.1 %; RDW Coefficient of Variation 14.9 % (11.5-14.5); RDW Standard Deviation 57.6 fL (36.4-46.3); Red Blood Count 3.05 M/uL (3.93-5.22)
--- NOTE | 2022-03-17 18:08 | XRay Report ---
XR chest 1V portable CLINICAL HISTORY: Weakness. Rectal cancer. COMPARISON STUDY: Chest CT February 28, 2022. FINDINGS: Left internal jugular [id number] is in place. There is no pneumothorax or pleural effusi on. Cardiomediastinal silhouette is normal. There is no consolidation to suggest pneumonia. Numerous nodular densities throughout the lungs correspond to lesions shown on chest CT of February 28, 2022. Appe arance of the chest is unchanged. IMPRESSION: 1. No acute cardiopulmonary findings. 2. Numerous pulmonary metastases, similar to prior chest CT. ACT 112: Negative or not required by law. Electronically signed by: Tony Lucas M.D. 03/17/2022 6:07 PM
[2022-03-17 18:13] LABS: Thyroid Stimulating Hormone 0.221 uIu/ml (0.300-4.500)
[2022-03-17 18:28] LABS: Influenza A virus by PCR Negative (Neg); Influenza B virus by PCR Negative (Neg); RSV by PCR Negative (Neg)
[2022-03-17 18:38] LABS: SARS CoV2 RNA(COVID-19) InHosp POSITIVE (Negative)
[2022-03-17 18:47] LABS: T4 Free Thyroxine 0.73 ng/dl (0.61-1.60)
[2022-03-17] MEDS ORDERED: OPTIRAY 300 100mL IV ONE (19:02)
--- NOTE | 2022-03-17 19:19 | CT Scan Report ---
ABDOMEN AND PELVIS CT WITH IV CONTRAST CT DOSE: 501.22 mGy.cm HISTORY: Generalized abdominal pain. TECHNIQUE: Multiaxial CT images of the abdomen and pelvis were performed following the use of intrave nous contrast. A dose lowering technique was utilized adhering to the principles of ALARA. COMPARISON STUDY: Abdomen and pelvis CT 02/28/2022. FINDINGS: Pulmonary metastatic disease is again noted. This is similar to the prior study. Prior wedg e resections within the left lung base. No pneumoperitoneum. No pneumatosis. No suspicious lytic or b lastic osseous lesions. The gallbladder is mildly distended. No gallbladder wall thickening. There ar e few punctate gallstones identified. No hepatic or splenic masses. The adrenal glands, pancreas, and kidneys are unremarkable. No hydronephrosis. No retroperitoneal lymphadenopathy. The bladder, uterus , bilateral adnexa are unremarkable. Mild circumferential thickening involving of the majority the co ada including the rectum consistent with a nonspecific proctocolitis. This is most pronounced within the descending colon and sigmoid colon. The colon is fluid-filled. There are few colonic diverticula. No evidence for acute diverticulitis. No evidence for bowel obstruction. Normal appendix. The major mesenteric vessels appear patent. There again noted a few scattered subcentimeter soft tissue nodules within the omentum/peritoneal linings. Dominant soft tissue nodule within the left upper quadrant im age 89 measures 6 mm. This is concerning for a peritoneal carcinomatosis. IMPRESSION: 1. Mild circumferential thickening involving the majority of the colon and rectum consistent with a n onspecific colitis. This favors an infectious or inflammatory process. 2. Pulmonary metastatic disease, unchanged. 3. A few scattered subcentimeter soft tissue nodules within the omentum/peritoneal linings again note d. This is concerning for metastatic peritoneal carcinomatosis. 4. Cholelithiasis. ACT 112: Negative or not required by law. Electronically signed by: Neo Woods M.D. 03/17/2022 7:16 PM
--- NOTE | 2022-03-17 19:55 | History & Physical Report ---
Date of Service March 17, 2022 Assessment & Plan (1) Typhlitis: Plan: - Colitis as evidenced on CT A/P with n/v/d and fevers x 3 days. With neutropenia. - No recent history of antibiotic use, no history of c diff, reports only 5 episodes of diarrhea/day. - Placed empirically on cefepime 2g q8h IV and Flagyl 500 q8h IV. - Blood cultures pending, stool GI PCR ordered--not yet collected. - NPO for now with LRs for IV rehydration. (2) Febrile neutropenia: Plan: - Placed on neutropenic precautions. - Treatment as above. (3) Acute kidney injury: Plan: - Cr 0.93, baseline 0.6-0.7, suspect pre-renal due to GI losses/poor appetite and PO intake. - LRs at 125 cc/hr. - Recheck BMP in AM. - Avoid nephrotoxins and renally dose medications as able. (4) Acute hyponatremia: Plan: - 129, serum and urine osm ordered. - Likely low in the setting of ongoing GI losses this weekend and poor appetite. - Will recheck BMP in AM after IVF. (5) COVID-19: Plan: - Tested positive here in ED on routine admission test. She is not vaccinated. She does not have any respiratory symptoms, developed GI symptoms Thursday or Thursday. Daughter who lives at home tested positive earlier last week. - Placed in COVID precautions. SpO2 > 95% on RA, no current indications for remdesivir or IV steroids. (6) Pancytopenia: Plan: - Due to both chemotherapy and COVID-19 infection. - On neutropenic precautions. - Repeat CBC daily. (7) Metastatic carcinoma: Plan: - Rectal cancer, diagnosed in 2018. Undergoing chemotherapy every 2 weeks, last treatment Sunday 03/11. - Multiple pulmonary mets, unchanged from a previous chest CT and evidence of a few scattered subcentimeter soft tissue nodules within the omentum/peritoneal linings again noted. This is concerning for metastatic peritoneal carcinomatosis. Plan - Admit to med/tele. - SCDS, Heparin for VTE ppx. - Full Code. History of Present Illness Chief Complaint: Fever, diarrhea x 3 days Primary Care Provider: Argentina Mcneill Serene Burns is a 67-year-old female with a history significant for rectal carcinoma with metastatic disease to the lungs s/p wedge resection in 2018 and undergoing chemotherapy presents today with complaints of nausea, vomiting, diarrhea and a fever at home for the past several days. Patient last had a chemo treatment 6 days ago, Sunday 03/11. She initially felt well, until Thursday when she developed diarrhea throughout the day. She was reported no more than 5 episodes per day, non bloody and non painful. Yesterday, she had low-grade fevers at home around 99, increased the day to a maximum of 102.9 today. She has been taking Tylenol which has alleviated these fevers. Today, she developed nausea and several episodes of nonbloody emesis. No one else at home has similar symptoms. She has not been out to eat at any restaurant lately, no recent antibiotics use, does occasionally experience diarrhea after chemotherapy placement associated with fevers. She does live with her daughter, who was diagnosed with COVID-19 infection earlier this week. Patient herself has not had any respiratory symptoms or infectious symptoms other than n/v/d with fevers, but is positive for COVID today in the ED. She is not vaccinated. In ED, vital signs are all within normal limits. Labs significant for pancytopenia WBC 1.33 with neutrophil count 0.88, RBC 3.05 with Hgb 10.5, PLT 107. Sodium 129, CR 0.93 (baseline 0.6-0.7), TSH 0.221. UA with some protein, ketones, hyaline casts, but is not appear infected. She is positive for COVID- 19. CXR shows metastatic disease, unchanged from previous chest CT. CT A/P with mild circumferential thickening involving the majority of the colon and rectum consistent with a nonspecific colitis favoritn inflammatory vs infectious process. Pulmonary metastatic disease, unchanged. A few scattered subcentimeter soft tissue nodules within the omentum/peritoneal linings again noted. This is concerning for metastatic peritoneal carcinomatosis. Cholelithiasis noted. Allergies Allergy/AdvReac Type Severity Reaction Status Date / Time doxycycline Allergy Severe SOB Verified 03/17/22 19:56 Penicillins Allergy Intermediate RASH/HIVES Verified 03/17/22 19:56 vancomycin Allergy Intermediate Hives Verified 03/17/22 19:56 aspirin AdvReac Intermediate H/O Verified 03/17/22 19:56 BLEEDING GASTRIC ULCER ciprofloxacin [From Cipro] AdvReac Intermediate NAUSEA/VOMI Verified 03/17/22 19:56 TING hydromorphone [From Dilaudid] AdvReac Intermediate Nightmare Verified 03/17/22 19:56 morphine AdvReac Intermediate Dizziness Verified 03/17/22 19:56 Home Medications Medication Instructions Recorded Confirmed Type cholecalciferol (vitamin D3) 125 5,000 unit PO 4XWK 05/12/18 03/17/22 History mcg (5,000 unit) tablet (Vitamin D3) cholecalciferol (vitamin D3) 125 10,000 unit PO 3XWK 05/12/18 03/17/22 History mcg (5,000 unit) tablet (Vitamin D3) diphenhydramine HCl 25 mg tablet 25 mg PO Q6H PRN allergic reaction 06/05/19 03/17/22 Rx #20 tabs magnesium 250 mg tablet 250 mg PO DAILY 01/31/21 03/17/22 History dexamethasone 4 mg tablet 4 mg PO DIRECTED 03/17/22 03/17/22 History ondansetron HCl 8 mg tablet 8 mg PO Q8 PRN Nausea 03/17/22 03/17/22 History prochlorperazine maleate 10 mg 10 mg PO Q6 PRN Nausea 03/17/22 03/17/22 History tablet Past Med/Surg History Medical History Abnormal CT scan, chest Asthma Cancer COLO-RECTAL CANCER (MARCH 2018). TREATMENT TO START 06/17/18 Lung nodule Left -- SURGICALLY REMOVED 05/14/18. Metastatic carcinoma Peptic ulcer disease H/O BLEEDING ULCER +40 YEARS AGO Port-A-Cath in place Rectal cancer Surgical History H/O nasal polypectomy x2 History of section History of colonoscopy History of endoscopic sinus surgery History of esophagogastroduodenoscopy (EGD) History of lobectomy of lung LEFT LOWER LOBECTOMY Social History Smoking Status: Unknown if ever smoked Second Hand Exposure: No; Hx Alcohol Use: No Hx Substance Use: No Preferred Language: Bengali Communication Ability: Effective Visual Impairment: No Limitations Dry Cleaner Presser Required: No Beliefs That Will Affect Care: None marital status: Current Living Situation: Spouse Feels Safe at Home: Yes Safety Concerns: Feels Safe At This Time Assistive Devices: Cane, Walker and Wheelchair Review of Systems Review of Systems: Constitutional: fever x2 days up to 102.9; No weakness, fatigue, myalgias, anorexia, night sweats Eyes: No diplopia, no worsening or blurred vision ENT: normal hearing, no trouble swallowing Respiratory: No cough, sputum, dyspnea at rest or on exertion Cardiovascular: No chest pain, tightness or palpitations Abdomen: nausea and vomiting today, diarrhea since Thursday : Denies dysuria, hematuria, increased urgency/frequency, urinary retention Musculoskeletal: No joint pain, calf pain, swelling Neurologic: No weakness, numbness/tingling, or balance problems Psychiatric: No anxiety or depression Skin: No rash or itch Physical Exam Physical Exam: General: awake, alert, no apparent distress Head: Normocephalic, atraumatic ENT: PERRL, EOMI, no pharyngeal exudate, mucous membranes moist Chest: Clear to auscultation, on room air, no adventitious breath sounds Cardiac: Regular rate and rhythm, no murmur, no JVD, normal peripheral pulses, good capillary refill Abdominal: NABS x 4 quadrants, soft, nontender to palpation, no rebound, guarding or tenderness Extremities: Normal inspection, no peripheral edema or erythema, calfs nontender to palpation Psych: Normal mood and affect Neuro: AAO x 3, strength intact bilaterally and rated 5/5, no motor deficits, speech is clear, no peripheral sensory deficits Skin: no rash or erythema Results & Data Results & Data ([facility]) Vital Signs (Past 12 Hours) Vital Signs Temp Pulse Pulse Resp BP BP Pulse Ox 03/17/22 18:17 69 22 110/66 94 03/17/22 17:31 76 22 95 03/17/22 16:28 98 H 22 135/61 98 03/17/22 16:22 37.1 C 86 20 118/72 96 O2 Del Method 03/17/22 18:17 Room Air 03/17/22 17:31 Room Air 03/17/22 16:28 Room Air 03/17/22 16:22 Room Air Laboratory Results Abnormal lab results 03/17/22 03/17/22 03/17/22 Range/Units 17:21 17:21 17:21 WBC 1.33 L (4.8-10.8) K/ul RBC 3.05 L (3.93-5.22) M/uL Hgb 10.5 L (12.0-16.0) g/dl Hct 31.8 L (34.1-44.9) % MCV 104.3 H (80.0-100.0) fL MCH 34.4 H (25.0-34.0) pg RDW Std Deviation 57.6 H (36.4-46.3) fL RDW Coeff of Mariaelena 14.9 H (11.5-14.5) % Plt Count 107 L (130-400) K/uL Neut # (Auto) 0.88 L* (1.4-6.5) K/uL Lymph # (Auto) 0.28 L (1.2-3.4) K/uL [place] # (Auto) 0.15 L (0.24-0.82) K/uL Sodium 129 L (136-145) mmol/L Chloride 96 L (98-107) mmol/L Glucose 114 H (70-99(Fasting)) mg/dl TSH 0.221 L (0.300-4.500) uIu/ml Urine Appearance (Clear) Ur Specific [place] (1.000-1.030) Urine Protein (Negative) Urine Ketones (Negative) Urine Blood (Negative) Urine Bilirubin (Negative) U Hyaline Cast (Auto) (0-5) /lpf U Epithel Cells (Auto) (0-5) /lpf Granular Casts (0) /lpf SARS-CoV-2 (PCR) (Negative) 03/17/22 03/17/22 Range/Units 17:30 17:30 WBC (4.8-10.8) K/ul RBC (3.93-5.22) M/uL Hgb (12.0-16.0) g/dl Hct (34.1-44.9) % MCV (80.0-100.0) fL MCH (25.0-34.0) pg RDW Std Deviation (36.4-46.3) fL RDW Coeff of Mariaelena (11.5-14.5) % Plt Count (130-400) K/uL Neut # (Auto) (1.4-6.5) K/uL Lymph # (Auto) (1.2-3.4) K/uL [place] # (Auto) (0.24-0.82) K/uL Sodium (136-145) mmol/L Chloride (98-107) mmol/L Glucose (70-99(Fasting)) mg/dl TSH (0.300-4.500) uIu/ml Urine Appearance Cloudy A (Clear) Ur Specific [place] 1.035 H (1.000-1.030) Urine Protein 1+ H (Negative) Urine Ketones 2+ H (Negative) Urine Blood 1+ H (Negative) Urine Bilirubin 1+ H (Negative) U Hyaline Cast (Auto) 5-10 H (0-5) /lpf U Epithel Cells (Auto) >30 H (0-5) /lpf Granular Casts 1-5 H (0) /lpf SARS-CoV-2 (PCR) POSITIVE A* (Negative) Diagnostic Findings Abdomen/Pelvis CT 03/17/22 16:[address] WITH IV CONTRAST CT DOSE: 501.22 mGy.cm HISTORY: Generalized abdominal pain. TECHNIQUE: Multiaxial CT images of the abdomen and pelvis were performed following the use of intravenous contrast. A dose lowering technique was utilized adhering to the principles of ALARA. COMPARISON STUDY: Abdomen and pelvis CT 02/28/2022. FINDINGS: Pulmonary metastatic disease is again noted. This is similar to the prior study. Prior wedge resections within the left lung base. No pneumoperitoneum. No pneumatosis. No suspicious lytic or blastic osseous lesions. The gallbladder is mildly distended. No gallbladder wall thickening. There are few punctate gallstones identified. No hepatic or splenic masses. The adrenal glands, pancreas, and kidneys are unremarkable. No hydronephrosis. No retroperitoneal lymphadenopathy. The bladder, uterus, bilateral adnexa are unremarkable. Mild circumferential thickening involving of the majority the colon including the rectum consistent with a nonspecific proctocolitis. This is most pronounced within the descending colon and sigmoid colon. The colon is fluid-filled. There are few colonic diverticula. No evidence for acute diverticulitis. No evidence for bowel obstruction. Normal appendix. The major mesenteric vessels appear patent. There again noted a few scattered subcentimeter soft tissue nodules within the omentum/peritoneal linings. Dominant soft tissue nodule within the left upper quadrant image 97 measures 6 mm. This is concerning for a peritoneal carcinomatosis. IMPRESSION: 1. Mild circumferential thickening involving the majority of the colon and rectum consistent with a nonspecific colitis. This favors an infectious or inflammatory process. 2. Pulmonary metastatic disease, unchanged. 3. A few scattered subcentimeter soft tissue nodules within the omentum/peritoneal linings again noted. This is concerning for metastatic peritoneal carcinomatosis. 4. Cholelithiasis. ACT 112: Negative or not required by law. Electronically signed by: Neo Woods M.D. 03/17/2022 7:16 PM Chest X-Ray 03/17/22 16:37 XR chest 1V portable CLINICAL HISTORY: Weakness. Rectal cancer. COMPARISON STUDY: Chest CT February 28, 2022. FINDINGS: Left internal jugular [id number] is in place. There is no pneumothorax or pleural effusion. Cardiomediastinal silhouette is normal. There is no consolidation to suggest pneumonia. Numerous nodular densities throughout the lungs correspond to lesions shown on chest CT of February 28, 2022. Appearance of the chest is unchanged. IMPRESSION: 1. No acute cardiopulmonary findings. 2. Numerous pulmonary metastases, similar to prior chest CT. ACT 112: Negative or not required by law. Electronically signed by: Tony Lucas M.D. 03/17/2022 6:07 PM ECG Additional Comments: Normal sinus rhythm Normal ECG When compared with ECG of 05-JUN-2019 20:26, No significant change was found. Code Status & VTE Plan Code Status Full code. Supervising Physician Co-Signing Physician Notes Attending addendum: I have physically seen this patient, have supervised the MARVIN's activities, and agree with the H&P unless as otherwise noted. Assessment and Plan: Nonspecific colitis/peritoneal carcinomatosis- Placed on empiric cefepime and Flagyl to review her compromised state Stool PCR test pending, adjust treatment as needed COVID-19 infection- Asymptomatic Nonhypoxic No direct treatment unless develops symptoms Placed on COVID precautions Acute kidney injury/hyponatremia Creatinine 0.93 on admission with baseline 0.6-0.7 LR at 125 mils per hour recheck laboratories in a.m. Remaining orders and notations as noted PG Care Time/CCT Total # of Minutes Spent Total Time Spent with Patient: Total time spent is greater than 50% in coordination of care (as documented) at patient's floor/unit and/or counseling patient: Coding Level of Care Code 93379 Initial Inpt Care Lvl 3 Diagnoses Typhlitis K37 Febrile neutropenia D70.9; R50.81 Acute kidney injury N17.9 Acute hyponatremia E87.1 COVID-19 U07.1 Pancytopenia D61.818 Metastatic carcinoma C79.9
[2022-03-17] MEDS ORDERED: CEFEPIME 2,000 MG in SYRINGE 0 ML IV STA (20:29)
[2022-03-17] MEDS ORDERED: metroNIDAZOLE 500 MG/100 ML BAG IV STA (20:29)
[2022-03-17] MEDS: LACTATED RINGER'S 1,000 ML IV SCH (21:31)
[2022-03-17] MEDS ORDERED: PROMETHAZINE HCL 12.5 MG in SODIUM CHLORIDE 0.9% 50 ML IV PRN (23:10)
[2022-03-17] MEDS ORDERED: ONDANSETRON INJ 2 MG/ML 2 ML VIAL IV PRN (23:10)
[2022-03-18] MEDS ORDERED: HEPARIN SOD (PORCINE) 1000 UNIT/ML ONE (00:21)
[2022-03-18] MEDS: HEPARIN SOD 5,000 UNIT/0.5 ML VIAL SQ SCH ×3 (00:53→20:19)
[2022-03-18 03:05] LABS: Adenovirus F 40/41 PCR Not Detected (NotDetected); Astrovirus PCR Not Detected (NotDetected); Campylobacter PCR Not Detected (NotDetected); Cryptosporidium PCR Not Detected (NotDetected); Cyclospora cayetanensis PCR Not Detected (NotDetected); Entamoeba histolytica PCR Not Detected (NotDetected); Enteroaggregative E.coli(EAEC) Not Detected (NotDetected); Enteropathogenic E.coli (EPEC) Not Detected (NotDetected); Enterotoxigenic E.coli (ETEC) Not Detected (NotDetected); Giardia lamblia PCR Not Detected (NotDetected); Norovirus GI/GII PCR Not Detected (NotDetected); Plesiomonas shigelloides PCR Not Detected (NotDetected); Rotavirus A PCR Not Detected (NotDetected); Salmonella PCR Not Detected (NotDetected); Sapovirus PCR Not Detected (NotDetected); Shiga-like Toxin E.coli (STEC) Not Detected (NotDetected); Shigella/Enteroinvasive E.coli Not Detected (NotDetected); Vibrio cholerae PCR Not Detected (NotDetected); Vibrio species PCR Not Detected (NotDetected); Yersinia enterocolitica PCR Not Detected (NotDetected)
[2022-03-18 04:14] LABS: Cdiff Antigen Positive; Cdiff Toxin A+B Negative Cdiff Toxin (Negative)
[2022-03-18] MEDS: LACTATED RINGER'S 1,000 ML IV SCH (05:46)
[2022-03-18] MEDS: metroNIDAZOLE 500 MG/100 ML BAG IV SCH ×2 (05:47→13:08)
[2022-03-18] MEDS: CEFEPIME 2,000 MG in SYRINGE 0 ML IV SCH ×2 (05:47→13:08)
[2022-03-18 07:03] LABS: Hematocrit (blood only) 30.3 % (34.1-44.9); Hemoglobin 10.2 g/dl (12.0-16.0); Mean Platelet Volume 9.8 fL (9.4-12.3); Platelet Count 102 K/uL (130-400); White Blood Count 1.16 K/ul (4.8-10.8)
[2022-03-18 07:31] LABS: BUN Creatinine Ratio 18.1 (10-20); Calcium 8.1 mg/dl (8.5-10.1); Creatinine Clr Calc Pharmacy 74.9 ml/min; Est GFR (African American) 99.7 ml/min; Est GFR (Non-African American) 86.1 ml/min; Magnesium 1.6 mg/dl (1.7-2.4); Phosphorus 2.6 mg/dl (2.5-4.9); Potassium 3.5 mmol/L (3.5-5.1)
[2022-03-18 08:23] LABS: Basophils # (auto) 0.01 K/uL (0-0.2); Basophils % (auto) 0.9 %; Immature Granulocytes # (auto) 0.01 K/uL (0.00-0.02); Immature Granulocytes % (auto) 0.9 %; Lymphocytes # (auto) 0.37 K/uL (1.2-3.4); Lymphocytes % (auto) 31.9 %; Mean Corpuscular Hemoglobin 34.7 pg (25.0-34.0); Mean Corpuscular Hgb Conc 33.7 g/dL (32.0-36.0); Mean Corpuscular Volume 103.1 fL (80.0-100.0); Monocytes # (auto) 0.13 K/uL (0.24-0.82); Monocytes % (auto) 11.2 %; Neutrophils # (auto) 0.64 K/uL (1.4-6.5); Neutrophils % (auto) 55.1 %; RDW Standard Deviation 57.1 fL (36.4-46.3); Red Blood Count 2.94 M/uL (3.93-5.22)
[2022-03-18] MEDS: ACETAMINOPHEN 1000 MG/100 ML IV IV PRN ×2 (09:18→20:03)
[2022-03-18] MEDS: FIDAXOMICIN 200 MG TAB PO SCH ×2 (09:18→20:19)
[2022-03-18] MEDS: MAGNESIUM SULFATE / D5W 1 GM/100 ML BAG IV SCH ×2 (09:18→10:10)
[2022-03-18] MEDS ORDERED: FILGRASTIM 480 MCG/1.6 ML VIAL SC ONE (11:00)
[2022-03-18] MEDS: FIRST - Mouthwash BLM 119 ML PO SCH ×3 (11:13→20:19)
--- NOTE | 2022-03-18 14:43 | Electrocardiogram Report ---
Test Reason : Blood Pressure : / mmHG Vent. Rate : 075 BPM Atrial Rate : 075 BPM P-R Int : 130 ms QRS Dur : 092 ms QT Int : 400 ms P-R-T Axes : 017 -09 004 degrees QTc Int : 446 ms Normal sinus rhythm Normal ECG When compared with ECG of 05-JUN-2019 20:26, No significant change was found Confirmed by Jason Elizabeth ([id number]) on 03/18/2022 2:43:16 PM Referred By: REFERRED SELF Confirmed By:Jason Elizabeth
[2022-03-18] MEDS: D5NSS + 20MEQ KCL 20 MEQ/1,000 ML BAG IV SCH (17:22)
--- NOTE | 2022-03-18 19:29 | Hospitalist Progress Note ---
Date of Service March 18, 2022 Assessment & Plan (1) COVID-19: Plan: She is about day #5 of her illness. Fortunately no radiographic evidence of pneumonia with stable O2 sats. Defer on Remdesivir and steroids at this time. Supportive care. Daily labs. COVID-19 could be contributing to pancytopenia. (2) C. difficile colitis: Plan: Although toxin is negative her gene is positive, she has copious diarrhea, and CT a/p shows pancolitis. Thus, will Rx for active c diff infection. Has vancomycin allergy. Thus will use dificid twice daily x 10 days. Contact precautions. IV fluids. Allow clears. No evidence of typhlitis clinically or radiographically. Stop cefepime. Stop flagyl. (3) Pancytopenia due to antineoplastic chemotherapy: Plan: Most recent chemo 03/11/22. Thus, we are approaching the thomas. Given her c diff infection and COVID-19 infection will give neupogen 480mcg x 1 and repeat CBC w/ diff in am. Cont neupogen until ANC improves. (4) Hypomagnesemia: Plan: replete with IV mag repeat mag level am (5) Febrile neutropenia: Plan: neutropenic precautions fevers are 2nd to COVID infection and/or c diff infection neupogen as above CBC w/ diff in am (6) Acute kidney injury: Plan: Cr 0.93, baseline 0.6-0.7 Cr now 0.7 s/p IV fluids overnight (7) Acute hyponatremia: Plan: Na 129 upon admission This am 134 s/p IV fluids c/w volume depletion resume isotonic fluids BMP am (8) Metastatic carcinoma: Plan: Rectal cancer, diagnosed in 2018. Undergoing chemotherapy every 2 weeks, with last treatment Sunday 03/11. Chemo-induced pancytopenia present - see above. Recent imaging with pulmonary mets and findings concerning for peritoneal carcinomatosis. Fortunately no significant abd pain from such. (9) DVT prophylaxis: Plan: heparin SC at high risk of VTE given concomitant cancer with COVID illness Plan updated by phone this evening Admission and Anticipated Discharge Date Admission Date: March 17, 2022 Subjective patient c/o sore throat, mouth discomfort, and hoarse voice c/o cough - nonproductive - but no dyspnea no chest pain no headache denies myalgias no nausea or vomiting numerous episodes of liquid stool (4-5) since this am Review of Systems Review of Systems: gen - fevers present cv - no orthopnea pulm - no dyspnea or ARELLANO GI - no blood per rectum Physical Exam Physical Exam: gen - looks sick, tired appearing, coughing HENT - hoarse voice; oral ulcers (mild) buccal mucosa, no obvious thrush, MM dry neck - no JVD heart - RRR, s1 s2, no murmur lungs - scant scattered rales b/l bases, no increased work of breathing abd - soft NT ND BS+ ext - no edema, pulses 2+ b/l psych - a/o x3 Results & Data Results & Data ([facility]) Vital Signs (Past 12 Hours) Vital Signs Temp Pulse Pulse Resp BP Pulse Ox O2 Del Method 03/18/22 15:00 37.5 C 76 15 133/64 94 Room Air 03/18/22 14:49 81 03/18/22 11:00 37.6 C H 82 15 104/56 L 95 Room Air 03/18/22 10:27 95 H 03/18/22 09:10 38.8 C H 78 15 115/61 93 Room Air Laboratory Results Laboratory Results - last 24 hr 03/17/22 03/17/22 03/18/22 17:21 17:30 01:37 WBC RBC Hgb Hct MCV MCH MCHC RDW Std Deviation RDW Coeff of Mariaelena Plt Count MPV Immature Gran % (Auto) Neut % (Auto) Lymph % (Auto) [place] % (Auto) Eos % (Auto) Baso % (Auto) Neut # (Auto) Lymph # (Auto) [place] # (Auto) Eos # (Auto) Baso # (Auto) Immature Gran # (Auto) Sodium Potassium Chloride Carbon Dioxide Anion Gap BUN Creatinine Est Cr Clr Drug Dosing Est GFR ( Amer) Est GFR (Non-Af Amer) BUN/Creatinine Ratio Glucose Osmolality 274 L Calcium Phosphorus Magnesium Urine Osmolality 911 H Stl C. cayetanensis PCR Not Detected Stool Rotavirus A PCR Not Detected Stl Adenov F 40/41 PCR Not Detected Stool Astrovirus (PCR) Not Detected Stool Campylobacter PCR Not Detected Stl C.difficile Tox A&B Negative Cdiff Toxin Stl C. diff Tox A/B PCR C.diff Gene Detected A Stool Cryptosporidium PCR Not Detected Stl E.coli Shiga Tox PCR Not Detected Stl Enterotoxigenic E PCR Not Detected Stool EPEC (PCR) Not Detected Stool EAEC (PCR) Not Detected Stl E. histolytica PCR Not Detected Stool Giardia Lamblia PCR Not Detected Stool Salmonella PCR Not Detected Stool Sapovirus (PCR) Not Detected Stl P. shigelloides PCR Not Detected Stl Shigella/EIEC PCR Not Detected St Y.enterocolitica PCR Not Detected Stool Vibrio (PCR) Not Detected Stl Vibrio cholerae PCR Not Detected Stl Norovirus GI/GII PCR Not Detected 03/18/22 03/18/22 06:16 06:16 WBC 1.16 L RBC 2.94 L Hgb 10.2 L Hct 30.3 L MCV 103.1 H MCH 34.7 H MCHC 33.7 RDW Std Deviation 57.1 H RDW Coeff of Mariaelena 15.0 H Plt Count 102 L MPV 9.8 Immature Gran % (Auto) 0.9 Neut % (Auto) 55.1 Lymph % (Auto) 31.9 [place] % (Auto) 11.2 Eos % (Auto) 0.0 Baso % (Auto) 0.9 Neut # (Auto) 0.64 L* Lymph # (Auto) 0.37 L [place] # (Auto) 0.13 L Eos # (Auto) 0.00 Baso # (Auto) 0.01 Immature Gran # (Auto) 0.01 Sodium 134 L Potassium 3.5 Chloride 100 Carbon Dioxide 25 Anion Gap 9 BUN 13 Creatinine 0.72 Est Cr Clr Drug Dosing 74.9 Est GFR ( Amer) 99.7 Est GFR (Non-Af Amer) 86.1 BUN/Creatinine Ratio 18.1 Glucose 96 Osmolality Calcium 8.1 L Phosphorus 2.6 Magnesium 1.6 L Urine Osmolality Stl C. cayetanensis PCR Stool Rotavirus A PCR Stl Adenov F 40/41 PCR Stool Astrovirus (PCR) Stool Campylobacter PCR Stl C.difficile Tox A&B Stl C. diff Tox A/B PCR Stool Cryptosporidium PCR Stl E.coli Shiga Tox PCR Stl Enterotoxigenic E PCR Stool EPEC (PCR) Stool EAEC (PCR) Stl E. histolytica PCR Stool Giardia Lamblia PCR Stool Salmonella PCR Stool Sapovirus (PCR) Stl P. shigelloides PCR Stl Shigella/EIEC PCR St Y.enterocolitica PCR Stool Vibrio (PCR) Stl Vibrio cholerae PCR Stl Norovirus GI/GII PCR PG Care Time/CCT Total # of Minutes Spent Total Time Spent with Patient: Total time spent is greater than 50% in coordination of care (as documented) at patient's floor/unit and/or counseling patient: Coding Level of Care Code 93743 Subseq Hosp Care Lvl 3 Diagnoses COVID-19 U07.1 C. difficile colitis A04.72 Pancytopenia due to antineoplastic chemotherapy D61.810; T45.1X5A Hypomagnesemia E83.42 Febrile neutropenia D70.9; R50.81 Acute kidney injury N17.9 Acute hyponatremia E87.1 Metastatic carcinoma C79.9 DVT prophylaxis Z29.9
[2022-03-18] MEDS: guaiFENesin 600 MG TABCR PO SCH (20:19)
[2022-03-19] MEDS: ACETAMINOPHEN 1000 MG/100 ML IV IV PRN (04:15)
[2022-03-19] MEDS: FIRST - Mouthwash BLM 119 ML PO SCH ×4 (04:17→22:08)
[2022-03-19] MEDS: D5NSS + 20MEQ KCL 20 MEQ/1,000 ML BAG IV SCH (06:09)
[2022-03-19 06:42] LABS: BUN Creatinine Ratio 11.3 (10-20); Calcium 7.6 mg/dl (8.5-10.1); Est GFR (African American) 101.4 ml/min; Est GFR (Non-African American) 87.5 ml/min; Magnesium 1.8 mg/dl (1.7-2.4); Potassium 3.6 mmol/L (3.5-5.1)
[2022-03-19 07:22] LABS: Basophils # (auto) 0.01 K/uL (0-0.2); Basophils % (auto) 0.3 %; Dohle Bodies 2+; Hematocrit (blood only) 28.7 % (34.1-44.9); Hemoglobin 9.4 g/dl (12.0-16.0); Immature Granulocytes # (auto) 0.03 K/uL (0.00-0.02); Immature Granulocytes % (auto) 0.8 %; Lymphocytes # (auto) 0.43 K/uL (1.2-3.4); Lymphocytes % (auto) 11.1 %; Mean Corpuscular Hemoglobin 34.1 pg (25.0-34.0); Mean Corpuscular Hgb Conc 32.8 g/dL (32.0-36.0); Mean Platelet Volume 9.6 fL (9.4-12.3); Monocytes # (auto) 0.27 K/uL (0.24-0.82); Neutrophils # (auto) 3.13 K/uL (1.4-6.5); Neutrophils % (auto) 80.8 %; Platelet Count 98 K/uL (130-400); RDW Standard Deviation 57.5 fL (36.4-46.3); Red Blood Count 2.76 M/uL (3.93-5.22); White Blood Count 3.87 K/ul (4.8-10.8)
[2022-03-19] MEDS: HEPARIN SOD 5,000 UNIT/0.5 ML VIAL SQ SCH ×2 (08:24→20:45)
[2022-03-19] MEDS: FIDAXOMICIN 200 MG TAB PO SCH ×2 (08:24→20:43)
[2022-03-19] MEDS: guaiFENesin 600 MG TABCR PO SCH ×2 (08:24→20:44)
[2022-03-19] MEDS: COLESTIPOL HCL 1 GM TAB PO SCH (18:24)
--- NOTE | 2022-03-19 22:17 | Hospitalist Progress Note ---
Date of Service March 19, 2022 Assessment & Plan (1) COVID-19: Plan: She is about day #6 of her illness. Fortunately no radiographic evidence of pneumonia with stable O2 sats. Cont to defer on Remdesivir and steroids at this time. Supportive care. Daily labs. COVID-19 could be contributing to pancytopenia. (2) C. difficile colitis: Plan: Although toxin is negative her gene is positive, she has copious diarrhea, and CT a/p shows pancolitis. Thus, cont Rx for active c diff infection. Has vancomycin allergy. Using dificid twice daily x 10 days. Day #2 today. Contact precautions. IV fluids. Advance diet to full liquids. Add colestipol 1gm daily. Labs am. (3) Pancytopenia due to antineoplastic chemotherapy: Plan: Most recent chemo 03/11/22. Thus, we are approaching the thomas. s/p neupogen 480mcg x 1 yesterday --- wbc, anc both improved. CBC with diff am. (4) Hypomagnesemia: Plan: repleted resolved 2nd to diarrhea (5) Febrile neutropenia: Plan: neutropenic precautions fevers are 2nd to COVID infection and/or c diff infection fever curve slowly improving ANC improved today s/p neupogen 03/18/22 (6) Acute kidney injury: Plan: resolved s/p IV fluids (7) Acute hyponatremia: Plan: Na 129 upon admission This am 134 c/w volume depletion e cont isotonic fluids BMP am (8) Metastatic carcinoma: Plan: Rectal cancer, diagnosed in 2018. Undergoing chemotherapy every 2 weeks, with last treatment Sunday 03/11. Chemo-induced pancytopenia present - see above. Recent imaging with pulmonary mets and findings concerning for peritoneal carcinomatosis. Fortunately no significant abd pain from such. (9) DVT prophylaxis: Plan: heparin SC at high risk of VTE given concomitant cancer with COVID illness Plan updated by phone yesterday evening Admission and Anticipated Discharge Date Admission Date: March 17, 2022 Subjective tele overnight wnl minimal cough no dyspnea still with copious amount of liquid stools - 8+ times today - perhaps not as large volume no abd pain no vomiting tolerating clears Review of Systems Review of Systems: gen - still with fevers, chills cv - no cp, no orthopnea GI - no vomiting, no blood per rectum pulm - no shortness of breath Physical Exam Physical Exam: gen - looks better today, NAD HENT - hoarse voice slightly improved; oral ulcers tongue and buccal mucosa, no obvious thrush, MM moist today neck - no JVD heart - RRR, s1 s2, no murmur lungs - CTA b/l abd - soft NT ND BS+ ext - no edema, pulses 2+ b/l psych - a/o x3 Results & Data Results & Data ([facility]) Vital Signs (Past 12 Hours) Vital Signs Temp Pulse Pulse Resp BP Pulse Ox O2 Del Method 03/19/22 20:15 37.2 C 80 16 115/53 L 99 Room Air 03/19/22 15:00 37.2 C 78 15 118/61 97 Room Air 03/19/22 15:02 78 03/19/22 11:00 37.1 C 80 15 110/55 L 98 Room Air Laboratory Results Laboratory Results - last 24 hr 03/19/22 03/19/22 05:46 05:46 WBC 3.87 L RBC 2.76 L Hgb 9.4 L Hct 28.7 L MCV 104.0 H MCH 34.1 H MCHC 32.8 RDW Std Deviation 57.5 H RDW Coeff of Mariaelena 15.0 H Plt Count 98 L MPV 9.6 Immature Gran % (Auto) 0.8 Neut % (Auto) 80.8 Lymph % (Auto) 11.1 [place] % (Auto) 7.0 Eos % (Auto) 0.0 Baso % (Auto) 0.3 Neut # (Auto) 3.13 Lymph # (Auto) 0.43 L [place] # (Auto) 0.27 Eos # (Auto) 0.00 Baso # (Auto) 0.01 Immature Gran # (Auto) 0.03 H Dohle Bodies 2+ Sodium 134 L Potassium 3.6 Chloride 102 Carbon Dioxide 26 Anion Gap 6 BUN 8 Creatinine 0.71 Est Cr Clr Drug Dosing 77.0 Est GFR ( Amer) 101.4 Est GFR (Non-Af Amer) 87.5 BUN/Creatinine Ratio 11.3 Glucose 116 H Calcium 7.6 L Magnesium 1.8 PG Care Time/CCT Total # of Minutes Spent Total Time Spent with Patient: Total time spent is greater than 50% in coordination of care (as documented) at patient's floor/unit and/or counseling patient: Coding Level of Care Code 20275 Subseq Hosp Care Lvl 2 Diagnoses COVID-19 U07.1 C. difficile colitis A04.72 Pancytopenia due to antineoplastic chemotherapy D61.810; T45.1X5A Hypomagnesemia E83.42 Febrile neutropenia D70.9; R50.81 Acute kidney injury N17.9 Acute hyponatremia E87.1 Metastatic carcinoma C79.9 DVT prophylaxis Z29.9
[2022-03-20] MEDS ORDERED: HEPARIN 100 UNIT/ML 5ML FLUSH FLUSH PRN (02:29)
[2022-03-20] MEDS: FIRST - Mouthwash BLM 119 ML PO SCH ×4 (04:16→21:35)
[2022-03-20 06:17] LABS: Hematocrit (blood only) 27.3 % (34.1-44.9); Hemoglobin 8.9 g/dl (12.0-16.0); Mean Corpuscular Hemoglobin 34.2 pg (25.0-34.0); Mean Corpuscular Hgb Conc 32.6 g/dL (32.0-36.0); Platelet Count 92 K/uL (130-400); RDW Coefficient of Variation 15.2 % (11.5-14.5); RDW Standard Deviation 58.7 fL (36.4-46.3); White Blood Count 4.37 K/ul (4.8-10.8)
[2022-03-20 06:18] LABS: Basophils # (auto) 0.01 K/uL (0-0.2); Basophils % (auto) 0.2 %; Eosinophils # (auto) 0.02 K/uL (0-0.50); Eosinophils % (auto) 0.5 %; Immature Granulocytes # (auto) 0.07 K/uL (0.00-0.02); Immature Granulocytes % (auto) 1.6 %; Lymphocytes # (auto) 0.53 K/uL (1.2-3.4); Lymphocytes % (auto) 12.1 %; Monocytes # (auto) 0.26 K/uL (0.24-0.82); Monocytes % (auto) 5.9 %; Neutrophils # (auto) 3.48 K/uL (1.4-6.5); Neutrophils % (auto) 79.7 %; Tear Drop Cells 1+
[2022-03-20 06:22] LABS: BUN Creatinine Ratio 10.7 (10-20); Calcium 7.8 mg/dl (8.5-10.1); Creatinine Clr Calc Pharmacy 97.4 ml/min; Est GFR (Non-African American) 95.8 ml/min; Magnesium 1.6 mg/dl (1.7-2.4); Potassium 3.2 mmol/L (3.5-5.1)
[2022-03-20] MEDS: FIDAXOMICIN 200 MG TAB PO SCH ×2 (09:24→21:46)
[2022-03-20] MEDS: COLESTIPOL HCL 1 GM TAB PO SCH (09:25)
[2022-03-20] MEDS: HEPARIN SOD 5,000 UNIT/0.5 ML VIAL SQ SCH ×2 (09:25→21:46)
[2022-03-20] MEDS: guaiFENesin 600 MG TABCR PO SCH ×2 (09:25→21:36)
[2022-03-20] MEDS: MAGNESIUM SULFATE / D5W 1 GM/100 ML BAG IV SCH ×2 (09:26→13:01)
[2022-03-20] MEDS: POTASSIUM CHLORIDE CRTAB 20 MEQ TABCR PO SCH ×3 (09:26→21:36)
--- NOTE | 2022-03-20 20:18 | Hospitalist Progress Note ---
Date of Service March 20, 2022 Assessment & Plan (1) COVID-19: Plan: She is about day #7 of her illness. Fortunately no radiographic evidence of pneumonia with ongoing stable O2 sats. Cont to defer on Remdesivir and steroids at this time. Supportive care. Daily labs. COVID-19 could be contributing to pancytopenia. (2) C. difficile colitis: Plan: Although toxin is negative her gene is positive, she has copious diarrhea, and CT a/p shows pancolitis. Thus, cont Rx for active c diff infection. Has vancomycin allergy. Using dificid twice daily x 10 days. Day #3 today. Contact precautions. Advance diet to low fiber. Cont colestipol 1gm daily. Labs am. Replace low K and low mag. Overall improving nicely. Will need wood check on dificid before discharge. (3) Pancytopenia due to antineoplastic chemotherapy: Plan: Most recent chemo 03/11/22. s/p neupogen 480mcg x 1 this admission --- wbc, anc both improved. CBC with diff am for stability. (4) Hypomagnesemia: Plan: ongoing 2nd to diarrhea additional IV mag today then repeat mag in am replete low K (5) Febrile neutropenia: Plan: resolved - no fevers in 48+ hours fevers were 2nd to COVID infection and/or c diff infection ANC is robust today (6) Acute kidney injury: Plan: resolved s/p IV fluids (7) Acute hyponatremia: Plan: Na 129 upon admission 136 today and normalized BMP am (8) Metastatic carcinoma: Plan: Rectal cancer, diagnosed in 2018. Undergoing chemotherapy every 2 weeks, with last treatment Sunday 03/11. Chemo-induced pancytopenia present - see above. Recent imaging with pulmonary mets and findings concerning for peritoneal carcinomatosis. Fortunately no significant abd pain from such. (9) DVT prophylaxis: Plan: heparin SC would advise low-dose xarelto for 30 days post-dc due to high DVT risk in setting of advanced cancer, COVID, etc. (10) Hypokalemia: Plan: replete repeat BMP am replete low mag as well (11) Mucositis (ulcerative) due to antineoplastic therapy: Plan: improving cont magic mouthwash Plan updated by phone this evening home tomorrow? Admission and Anticipated Discharge Date Admission Date: March 17, 2022 Subjective patient feeling much better went all night last pm without diarrhea and diarrhea improved during the day today tolerated low fiber dinner this evening no vomiting mild cough - no worse than prior no dyspnea walking in room w/o difficulty tele overnight wnl Review of Systems Review of Systems: gen - no fevers or chills cv - no chest pain or tightness GI - no nausea pulm - no dyspnea at any time Physical Exam Physical Exam: gen - looks very good today; NAD HENT - hoarse voice again improved; oral ulcers tongue and buccal mucosa improved, no obvious thrush, MMM neck - no JVD heart - RRR, s1 s2, no murmur lungs - CTA b/l abd - soft NT ND BS+ ext - no edema, pulses 2+ b/l psych - a/o x3 Results & Data Results & Data ([facility]) Vital Signs (Past 12 Hours) Vital Signs Temp Pulse Pulse Resp BP Pulse Ox O2 Del Method 03/20/22 15:49 70 03/20/22 15:34 36.9 C 69 16 116/55 L 99 Room Air 03/20/22 11:35 37.3 C 75 18 113/55 L 98 Room Air 03/20/22 09:47 Room Air Laboratory Results Laboratory Results - last 24 hr 03/20/22 03/20/22 05:40 05:40 WBC 4.37 L RBC 2.60 L Hgb 8.9 L Hct 27.3 L MCV 105.0 H MCH 34.2 H MCHC 32.6 RDW Std Deviation 58.7 H RDW Coeff of Mariaelena 15.2 H Plt Count 92 L MPV 11.0 Immature Gran % (Auto) 1.6 Neut % (Auto) 79.7 Lymph % (Auto) 12.1 [place] % (Auto) 5.9 Eos % (Auto) 0.5 Baso % (Auto) 0.2 Neut # (Auto) 3.48 Lymph # (Auto) 0.53 L [place] # (Auto) 0.26 Eos # (Auto) 0.02 Baso # (Auto) 0.01 Immature Gran # (Auto) 0.07 H Tear Drop Cells 1+ Sodium 136 Potassium 3.2 L Chloride 104 Carbon Dioxide 26 Anion Gap 6 BUN 6 Creatinine 0.56 L Est Cr Clr Drug Dosing 97.4 Est GFR ( Amer) 111.0 Est GFR (Non-Af Amer) 95.8 BUN/Creatinine Ratio 10.7 Glucose 92 Calcium 7.8 L Magnesium 1.6 L PG Care Time/CCT Total # of Minutes Spent Total Time Spent with Patient: Total time spent is greater than 50% in coordination of care (as documented) at patient's floor/unit and/or counseling patient: Coding Level of Care Code 59449 Subseq Hosp Care Lvl 3 Diagnoses COVID-19 U07.1 C. difficile colitis A04.72 Pancytopenia due to antineoplastic chemotherapy D61.810; T45.1X5A Hypomagnesemia E83.42 Febrile neutropenia D70.9; R50.81 Acute kidney injury N17.9 Acute hyponatremia E87.1 Metastatic carcinoma C79.9 DVT prophylaxis Z29.9 Hypokalemia E87.6 Mucositis (ulcerative) due to antineoplastic therapy K12.31
[2022-03-21] MEDS: FIRST - Mouthwash BLM 119 ML PO SCH ×4 (04:51→20:53)
[2022-03-21 06:24] LABS: Hematocrit (blood only) 27.4 % (34.1-44.9); Hemoglobin 8.9 g/dl (12.0-16.0); Mean Platelet Volume 11.5 fL (9.4-12.3); Platelet Count 102 K/uL (130-400); White Blood Count 2.38 K/ul (4.8-10.8)
[2022-03-21 06:53] LABS: Eosinophils # (auto) 0.02 K/uL (0-0.50); Eosinophils % (auto) 0.8 %; Immature Granulocytes # (auto) 0.03 K/uL (0.00-0.02); Immature Granulocytes % (auto) 1.3 %; Lymphocytes # (auto) 0.43 K/uL (1.2-3.4); Lymphocytes % (auto) 18.1 %; Mean Corpuscular Hemoglobin 33.7 pg (25.0-34.0); Mean Corpuscular Hgb Conc 32.5 g/dL (32.0-36.0); Mean Corpuscular Volume 103.8 fL (80.0-100.0); Monocytes # (auto) 0.25 K/uL (0.24-0.82); Monocytes % (auto) 10.5 %; Neutrophils # (auto) 1.65 K/uL (1.4-6.5); Neutrophils % (auto) 69.3 %; RDW Coefficient of Variation 15.3 % (11.5-14.5); RDW Standard Deviation 58.6 fL (36.4-46.3); Red Blood Count 2.64 M/uL (3.93-5.22)
[2022-03-21 07:13] LABS: BUN Creatinine Ratio 12.1 (10-20); Calcium 8.1 mg/dl (8.5-10.1); Creatinine Clr Calc Pharmacy 94.1 ml/min; Est GFR (African American) 109.8 ml/min; Est GFR (Non-African American) 94.7 ml/min; Magnesium 1.8 mg/dl (1.7-2.4); Potassium 4.2 mmol/L (3.5-5.1)
[2022-03-21] MEDS: guaiFENesin 600 MG TABCR PO SCH ×2 (09:03→20:55)
[2022-03-21] MEDS: FIDAXOMICIN 200 MG TAB PO SCH ×2 (09:03→20:54)
[2022-03-21] MEDS: HEPARIN SOD 5,000 UNIT/0.5 ML VIAL SQ SCH ×2 (09:05→20:55)
[2022-03-21] MEDS: COLESTIPOL HCL 1 GM TAB PO SCH (13:44)
--- NOTE | 2022-03-21 21:18 | Hospitalist Progress Note ---
Date of Service March 21, 2022 Assessment & Plan (1) COVID-19: Plan: She is about day #8 of her illness. No clinical or radiographic evidence of pneumonia with ongoing stable O2 sats. Cont to defer on Remdesivir and steroids at this time. Supportive care. Daily labs. COVID-19 likely contributing to ongoing pancytopenia. (2) C. difficile colitis: Plan: IMPROVED. Although toxin is negative her gene is positive, she has copious diarrhea, and CT a/p shows pancolitis. Thus, cont Rx for active c diff infection. Has vancomycin allergy. Using dificid twice daily x 10 days. Day #4 today. Contact precautions. Cont low fiber diet as tolerated. Cont colestipol 1gm daily. Labs am. Appreciate social work assistance for prior authorization process. Dificid for outpatient Rx APPROVED. Karla will have the drug by 03/24/22. Our pharmacy to provide 3 tabs at discharge to bridge the gap. (3) Pancytopenia due to antineoplastic chemotherapy: Plan: Most recent chemo 03/11/22. We are at chemo/bone marrow suppression "thomas." s/p neupogen 480mcg x 1 this admission --- wbc, anc both improved. CBC with diff am for stability. (4) Hypomagnesemia: Plan: repleted resolved repeat level am (5) Febrile neutropenia: Plan: resolved - no fevers in 72+ hours fevers were 2nd to COVID infection and/or c diff infection ANC stable today (6) Acute kidney injury: Plan: resolved s/p IV fluids (7) Acute hyponatremia: Plan: Na 129 upon admission resolved and stable BMP am (8) Metastatic carcinoma: Plan: Rectal cancer, diagnosed in 2018. Undergoing chemotherapy every 2 weeks, with last treatment Sunday 03/11. Chemo-induced pancytopenia present - see above. Recent imaging with pulmonary mets and findings concerning for peritoneal carcinomatosis. Fortunately no significant abd pain from such. (9) DVT prophylaxis: Plan: heparin SC would advise low-dose xarelto for 30 days post-dc due to high DVT risk in setting of advanced cancer, COVID, etc. (10) Hypokalemia: Plan: repleted resolved repeat BMP and mag in am (11) Mucositis (ulcerative) due to antineoplastic therapy: Plan: improving cont magic mouthwash Plan updated by phone yesterday evening with plan for dificid in place can likely d/c tomorrow on Thursday Admission and Anticipated Discharge Date Admission Date: March 17, 2022 Subjective 1 loose stool overnight 2 loose stools since awakening this am volume of stools, however, is improved and the calibre is starting to change - not as much liquid abd discomfort/dyspepsia/"girgling" improved tolerating solids no dyspnea minimal cough ambulating in room w/o difficulty tele overnight wnl Review of Systems Review of Systems: gen - no fevers, no chills; energy improved cv - no cp, no orthopnea pulm - no dyspnea or ARELLANO GI - no abd pain, nausea or emesis Physical Exam Physical Exam: gen - NAD, comfortable, looks good HENT - hoarse voice again improved; oral ulcers tongue and buccal mucosa unchanged, no obvious thrush, MMM neck - no JVD heart - RRR, s1 s2, no murmur lungs - CTA b/l, scant dry rales bases abd - soft NT ND BS+ ext - no edema, pulses 2+ b/l psych - a/o x3 Results & Data Results & Data ([facility]) Vital Signs (Past 12 Hours) Vital Signs Temp Pulse Pulse Resp BP Pulse Ox O2 Del Method 03/21/22 20:00 Room Air 03/21/22 19:29 36.9 C 71 18 99/58 L 99 Room Air 03/21/22 16:46 36.9 C 74 16 106/53 L 100 Room Air 03/21/22 15:00 77 03/21/22 11:16 36.9 C 74 18 117/56 L 100 Room Air 03/21/22 09:26 Room Air Laboratory Results Laboratory Results - last 24 hr 03/21/22 03/21/22 05:38 05:38 WBC 2.38 L RBC 2.64 L Hgb 8.9 L Hct 27.4 L MCV 103.8 H MCH 33.7 MCHC 32.5 RDW Std Deviation 58.6 H RDW Coeff of Mariaelena 15.3 H Plt Count 102 L MPV 11.5 Immature Gran % (Auto) 1.3 Neut % (Auto) 69.3 Lymph % (Auto) 18.1 [place] % (Auto) 10.5 Eos % (Auto) 0.8 Baso % (Auto) 0.0 Neut # (Auto) 1.65 Lymph # (Auto) 0.43 L [place] # (Auto) 0.25 Eos # (Auto) 0.02 Baso # (Auto) 0.00 Immature Gran # (Auto) 0.03 H Sodium 135 L Potassium 4.2 D Chloride 103 Carbon Dioxide 25 Anion Gap 7 BUN 7 Creatinine 0.58 L Est Cr Clr Drug Dosing 94.1 Est GFR ( Amer) 109.8 Est GFR (Non-Af Amer) 94.7 BUN/Creatinine Ratio 12.1 Glucose 92 Calcium 8.1 L Magnesium 1.8 PG Care Time/CCT Total # of Minutes Spent Total Time Spent with Patient: Total time spent is greater than 50% in coordination of care (as documented) at patient's floor/unit and/or counseling patient: Coding Level of Care Code 68483 Subseq Hosp Care Lvl 2 Diagnoses COVID-19 U07.1 C. difficile colitis A04.72 Pancytopenia due to antineoplastic chemotherapy D61.810; T45.1X5A Hypomagnesemia E83.42 Febrile neutropenia D70.9; R50.81 Acute kidney injury N17.9 Acute hyponatremia E87.1 Metastatic carcinoma C79.9 DVT prophylaxis Z29.9 Hypokalemia E87.6 Mucositis (ulcerative) due to antineoplastic therapy K12.31
[2022-03-22] MEDS: FIRST - Mouthwash BLM 119 ML PO SCH ×2 (05:23→10:43)
[2022-03-22 08:42] LABS: Hematocrit (blood only) 34.4 % (34.1-44.9); Hemoglobin 11.1 g/dl (12.0-16.0); Mean Corpuscular Hemoglobin 33.7 pg (25.0-34.0); Mean Corpuscular Hgb Conc 32.3 g/dL (32.0-36.0); Mean Corpuscular Volume 104.6 fL (80.0-100.0); Platelet Count 162 K/uL (130-400); RDW Coefficient of Variation 15.2 % (11.5-14.5); RDW Standard Deviation 59.4 fL (36.4-46.3); Red Blood Count 3.29 M/uL (3.93-5.22); White Blood Count 2.12 K/ul (4.8-10.8)
[2022-03-22 09:11] LABS: BUN Creatinine Ratio 11.1 (10-20); Creatinine Clr Calc Pharmacy 86.5 ml/min; Est GFR (African American) 106.8 ml/min; Est GFR (Non-African American) 92.2 ml/min; Potassium 3.8 mmol/L (3.5-5.1)
[2022-03-22] MEDS: guaiFENesin 600 MG TABCR PO SCH (09:22)
[2022-03-22] MEDS: FIDAXOMICIN 200 MG TAB PO SCH (09:22)
[2022-03-22] MEDS: HEPARIN SOD 5,000 UNIT/0.5 ML VIAL SQ SCH (09:31)
[2022-03-22 09:41] LABS: Basophils # (auto) 0.01 K/uL (0-0.2); Basophils % (auto) 0.5 %; Eosinophils # (auto) 0.04 K/uL (0-0.50); Eosinophils % (auto) 1.9 %; Immature Granulocytes # (auto) 0.15 K/uL (0.00-0.02); Immature Granulocytes % (auto) 7.1 %; Lymphocytes # (auto) 0.89 K/uL (1.2-3.4); Monocytes # (auto) 0.38 K/uL (0.24-0.82); Monocytes % (auto) 17.9 %; Neutrophils # (auto) 0.65 K/uL (1.4-6.5); Neutrophils % (auto) 30.6 %; Ovalocytes 1+; Polychromasia 1+; Tear Drop Cells 1+; Toxic Granulation 1+
[2022-03-22] MEDS ORDERED: FILGRASTIM 480 MCG/1.6 ML VIAL SC ONE (10:30)
--- NOTE | 2022-03-22 13:28 | Discharge Summary ---
Date of Service date of admission - March 17, 2022 date of discharge - March 22, 2022 Admission HPI Per Admitting Provider Serene Burns is a 67-year-old female with a history significant for rectal carcinoma with metastatic disease to the lungs s/p wedge resection in 2018 and undergoing chemotherapy presents today with complaints of nausea, vomiting, diarrhea and a fever at home for the past several days. Patient last had a chemo treatment 6 days ago, Sunday 03/11. She initially felt well, until Thursday when she developed diarrhea throughout the day. She was reported no more than 5 episodes per day, non bloody and non painful. Yesterday, she had low-grade fevers at home around 99, increased the day to a maximum of 102.9 today. She has been taking Tylenol which has alleviated these fevers. Today, she developed nausea and several episodes of nonbloody emesis. No one else at home has similar symptoms. She has not been out to eat at any restaurant lately, no recent antibiotics use, does occasionally experience diarrhea after chemotherapy placement associated with fevers. She does live with her daughter, who was diagnosed with COVID-19 infection earlier this week. Patient herself has not had any respiratory symptoms or infectious symptoms other than n/v/d with f tania, but is positive for COVID today in the ED. She is not vaccinated. In ED, vital signs are all within normal limits. Labs significant for pancytopenia WBC 1.33 with neutrophil count 0.88, RBC 3.05 with Hgb 10.5, PLT 107. Sodium 129, CR 0.93 (baseline 0.6-0.7), TSH 0.221. UA with some protein, ketones, hyaline casts, but is not appear infected. She is positive for COVID- 19. CXR shows metastatic disease, unchanged from previous chest CT. CT A/P with mild circumferential thickening involving the majority of the colon and rectum consistent with a nonspecific colitis favoritn inflammatory vs infectious process. Pulmonary metastatic disease, unchanged. A few scattered subcentimeter soft tissue nodules within the omentum/peritoneal linings again noted. This is concerning for metastatic peritoneal carcinomatosis. Cholelithiasis noted. Principal Diagnosis 1. COVID-19 infection 2. C diff colitis 3. Severe diarrhea 2nd to #1, possibily #2 4. Chemotherapy-induced pancytopenia 5. Mucositis Discharge Exam gen - NAD, comfortable, looks good HENT - hoarse voice again improved; oral ulcers tongue and buccal mucosa unchanged, no obvious thrush, MMM neck - no JVD heart - RRR, s1 s2, no murmur lungs - CTA b/l, scant dry rales bases abd - soft NT ND BS+ ext - no edema, pulses 2+ b/l psych - a/o x3 skin - port left upper chest clean Discharge Data Allergies Allergy/AdvReac Type Severity Reaction Status Date / Time doxycycline Allergy Severe SOB Verified 03/17/22 19:56 Penicillins Allergy Intermediate RASH/HIVES Verified 03/17/22 19:56 vancomycin Allergy Intermediate Hives Verified 03/17/22 19:56 aspirin AdvReac Intermediate H/O Verified 03/17/22 19:56 BLEEDING GASTRIC ULCER ciprofloxacin [From Cipro] AdvReac Intermediate NAUSEA/VOMI Verified 03/17/22 19:56 TING hydromorphone [From Dilaudid] AdvReac Intermediate Nightmare Verified 03/17/22 19:56 morphine AdvReac Intermediate Dizziness Verified 03/17/22 19:56 Consultations Physical Therapy Ordered Studies Abdomen/Pelvis CT 03/17/22 16:[address] WITH IV CONTRAST CT DOSE: 501.22 mGy.cm HISTORY: Generalized abdominal pain. TECHNIQUE: Multiaxial CT images of the abdomen and pelvis were performed following the use of intravenous contrast. A dose lowering technique was utilized adhering to the principles of ALARA. COMPARISON STUDY: Abdomen and pelvis CT 02/28/2022. FINDINGS: Pulmonary metastatic disease is again noted. This is similar to the prior study. Prior wedge resections within the left lung base. No pneumoperitoneum. No pneumatosis. No suspicious lytic or blastic osseous lesions. The gallbladder is mildly distended. No gallbladder wall thickening. There are few punctate gallstones identified. No hepatic or splenic masses. The adrenal glands, pancreas, and kidneys are unremarkable. No hydronephrosis. No retroperitoneal lymphadenopathy. The bladder, uterus, bilateral adnexa are unremarkable. Mild circumferential thickening involving of the majority the colon including the rectum consistent with a nonspecific proctocolitis. This is most pronounced within the descending colon and sigmoid colon. The colon is fluid-filled. There are few colonic diverticula. No evidence for acute diverticulitis. No evidence for bowel obstruction. Normal appendix. The major mesenteric vessels appear patent. There again noted a few scattered subcentimeter soft tissue nodules within the omentum/peritoneal linings. Dominant soft tissue nodule within the left upper quadrant image 97 measures 6 mm. This is concerning for a peritoneal carcinomatosis. IMPRESSION: 1. Mild circumferential thickening involving the majority of the colon and rectum consistent with a nonspecific colitis. This favors an infectious or inflammatory process. 2. Pulmonary metastatic disease, unchanged. 3. A few scattered subcentimeter soft tissue nodules within the omentu m/peritoneal linings again noted. This is concerning for metastatic peritoneal carcinomatosis. 4. Cholelithiasis. ACT 112: Negative or not required by law. Electronically signed by: Neo Woods M.D. 03/17/2022 7:16 PM Chest X-Ray 03/17/22 16:37 XR chest 1V portable CLINICAL HISTORY: Weakness. Rectal cancer. COMPARISON STUDY: Chest CT February 28, 2022. FINDINGS: Left internal jugular [id number] is in place. There is no pneumothorax or pleural effusion. Cardiomediastinal silhouette is normal. There is no consolidation to suggest pneumonia. Numerous nodular densities throughout the lungs correspond to lesions shown on chest CT of February 28, 2022. Appearance of the chest is unchanged. IMPRESSION: 1. No acute cardiopulmonary findings. 2. Numerous pulmonary metastases, similar to prior chest CT. ACT 112: Negative or not required by law. Electronically signed by: Tony Lucas M.D. 03/17/2022 6:07 PM Hospital Course (1) COVID-19: Although patient tested positive for COVID-19 she had NO clinical or radiographic evidence of pneumonia. She had stable/normal O2 sats the entire stay. Remdesivir and Dexamethasone were deferred during the hospitalization. She received supportive care only. I do suspect that her COVID-19 infection likely contributed to her diarrhea as well as ongoing pancytopenia. Fortunately she had no fever for at least 3 days leading up to discharge. (2) C. difficile colitis: Although C diff toxin was negative on [employer] stool testing her C diff gene was positive. In light of copious diarrhea, CT a/p showing pancolitis, fever, and immunocompromised state we elected to treat the C diff. Dificid was used in jose eduardo of vancomycin due to allergy to vancomycin. She will complete 10 days of Dificid therapy. Diarrhea and GI symptoms improved during the hospitalization. She was started on a clear liquid diet and advanced to low fiber; she was tolerating this prior to discharge. Colestipol 1gm daily was utilized to help bulk her stools. Electrolyte deficiencies were replaced as needed throughout the visit. Initially her insurance did not approve the Dificid. Prior authorization was completed and ultimately the antibiotic was indeed approved. C diff informational handouts and instructions were given at discharge. (3) Pancytopenia due to antineoplastic chemotherapy: Most recent chemo 03/11/22. s/p neupogen 480mcg x 2 doses this admission. WBC count at discharge was 2.1. ANC at discharge was 650. Platelets were >150 at discharge. Hemoglobin at discharge was 11.1. She will need a repeat CBC with diff within 5 days of discharge to ensure stability. (4) Hypomagnesemia: repleted resolved cont magnesium supplementation at home (5) Febrile neutropenia: resolved - no fevers in 72+ hours prior to discharge fevers were 2nd to COVID infection and/or c diff infection ANC was 650 on day of discharge (6) Acute kidney injury: resolved s/p IV fluids Peak Cr 0.9 Discharge Cr 0.6 (7) Acute hyponatremia: Na 129 upon admission resolved and stable at 136 on day of discharge (8) Metastatic carcinoma: Rectal cancer, diagnosed in 2018. Undergoing chemotherapy every 2 weeks, with last treatment Thursday03/11/22. Chemo-induced pancytopenia present - see above. Recent imaging with pulmonary mets and findings concerning for peritoneal carcinomatosis. Fortunately no significant abdominal pain from such while here. (9) DVT prophylaxis: Received heparin SC while hospitalized. Advised low-dose xarelto 10mg daily for 30 days post-discharge due to high DVT risk in setting of advanced cancer, COVID, etc. (10) Hypokalemia: repleted resolved low mag also repleted & resolved (11) Mucositis (ulcerative) due to antineoplastic therapy: improving cont magic mouthwash after discharge Plan cleared by PT for home Total Time Total Time Spent Total Time Spent (In Minutes): 50 Discharge Plan Discharge Items Patient Disposition: Home - Self-Care Reason For Visit: Fever, Diarrhea, COVID-19 Infection Discharge Diagnosis: 1. COVID-19 infection 2. Diarrhea due to c diff infection of the colon and potentially also COVID-19 3. Low white blood cell count - due to recent chemotherapy as well as COVID itself 4. Low platelet count - due to recent chemotherapy as well as COVID itself - resolved 5. Rectal cancer Activity: As commented below Activity Comment: gradually increase your activities over the next 7-10 days Lifting: No more than 10 pounds Bathing: No limitations Sexual Activity: Wait until after follow-up appointment Exercise/Sports: Wait until after follow-up appointment Driving/Machine Use: once you are out of home isolation Non-emergency contact: Primary Care Provider and Oncologist Call non-emergency contact if: you have any medication questions, your symptoms worsen and you have a fever Follow-up/Referrals: [facility] [Provider Group] (f/u with the [facility] - Ms Morales - within the next 3-4 days to determine timing of next chemot herapy, follow-up appointment, etc) Argentina Mcneill D.O. [Primary Care Provider] - (1 week) Diet: Low Fiber Ambulatory Orders: Basic Metabolic Panel (Routine) Timeframe: 20220325 Location: Determined by Patient Ordered By: Jose Eduardo Zhang Complete Blood Count with Diff (Timed) Timeframe: 20220325 Location: Determined by Patient Ordered By: Jose Eduardo Zhang Magnesium (Routine) Timeframe: 20220325 Location: Determined by Patient Ordered By: Jose Eduardo Zhang Addtl Attending Provider Instructions: Ms Burns, You were hospitalized for fever and diarrhea. You were diagnosed with c diff infection of the colon as well as COVID-19 infection. This was all in the setting of recent chemotherapy for your cancer. The diarrhea was mainly due to the c diff infection, but COVID can also cause diarrhea as well. We treated the c diff infection with an antibiotic called "Dificid" and your diarrhea improved while you were here. The COVID infection was treated with supportive care. Your chest x-ray did not show any pneumonia. We resumed a clear liquid diet and advanced this to low fiber diet. You are doing well with this. Please see handouts on "low fiber" diet, COVID, and c diff infection. Recommendations - 1. C diff infection - * we are giving you 3 doses of Dificid to take this weekend; take your first dose TONIGHT, second dose tomorrow AM, and 3rd dose tomorrow evening * on Thursday [facility] will have the remaining doses available to you; again the Dificid is taken twice daily (the additional prescription is for 7 days) * to help bulk the stool please take Colestipol 1gm daily; best to take this mid-morning or mid-afternoon by itself * you will likely be able to stop the Colestipol in about 7-10 days once your stools are back to normal 2. C diff - helpful tips - * handwashing for minimum of 20 seconds with soap/water DOES kill c diff * Purell alcohol based hand sanitizers do NOT kill c diff * use diluted bleach or bleach wipes to sanitize your bathroom (toilet, doorknobs, faucet handles, etc) * wash linens, underwear, sheets, etc in hot water, add bleach if you can * try to use a different bathroom than your - at least until the stools are back to normal; the highest period of contagiousness is when the stools are loose * see c diff handouts 3. For the sores in your mouth from recent chemotherapy - * magic mouthwash - 5cc every 6 hours as needed, swish and spit 4. For reasons not entirely understood COVID infection can increase the risk of developing blood clots. Having cancer also increases the risk of blood clots. Thus, I am recommending that you take Xarelto blood thinner (see section below on blood thinners). * Xarelto 10mg once daily for 30 days, first dose TOMORROW * be sure to bring the voucher to the pharmacy to get the month prescription for free 5. Focus on good nutrition and hydration over the next week as you recover from your illness. I would recommend a low fiber diet for at least 7-10 days. After that you can resume normal diet. 6. It will likely take you another 1-2 weeks before you are really feeling back to normal. Be sure to take it easy and gradually increase your activities. 7. Plan to "isolate" at home for another 4 days. By Thursday/Thursday you will likely not be contagious to others from a COVID standpoint. At that time you can start to leave your home and resume normal activities. Be sure to wear a mask when you leave your home. 8. Blood work - please have blood work drawn either at [facility] or [facility]. Have this drawn on Thursday or Thursday. Follow-up - see separate section Return to [facility] if - * you experience fevers over 100 degrees * your diarrhea worsens despite taking the Dificid * you see blood in your stool * you have difficulty breathing * you have chest pains * any other concerns It was our pleasure to care for you at [facility]! Please continue to feel better, Dr Zhang Addtl Diesel Engine Engineer Provider Instructions: Blood Thinner Medication Instructions: We are prescribing the blood thinner ("Anticoagulant") medication called XARELTO to you. Your dose is 10mg once daily. Take for 30 days. The Xarelto will thin your blood to help prevent blood clots of the legs and lungs. * You should take your medication exactly as directed. * Never skip a dose. * Never take a double dose. If you miss a dose, take it as soon as you remember. Call your Primary Care doctor if you experience any of the following: * Swelling or Pain in your leg * Sudden, continuous pain deep in a muscle * Pain that worsens when you are active or when you stand still for a long time * Chest Pain * Sudden Shortness of Breath * Rapid or pounding heart beat * Fainting * Dizziness * Cough with blood or bloody sputum * Sweating more than normal * Bruises * Heavy or uncontrolled bleeding * Blood in your urine, stool or vomit * Black or tarry stools * Heavy nose bleeding Caring for Your Self at Home: * Avoid sitting, standing or lying down for long periods without moving your legs and feet * When traveling by car, stop to get out and move around at least once every 3 hours * On long airplane, train or bus rides, get up and move around when possible * If you can't get up, wiggle your toes and tighten your calves to keep your blo od moving Pending Studies at Discharge: No Stand-Alone Forms: My [facility], Smoking Cessation Medications and DC Order Prescriptions: New colestipol [Colestid] 1 gram Tablet 1 g PO DAILY Qty: 14 0RF Xarelto 10 mg tablet 10 mg PO DAILY Qty: 30 0RF Rx Instructions: first dose 03/23/22 Magic Mouthwash 300 mL mouthwash 5 ml mucous membrane [id number] Qty: 300 0RF Rx Instructions: Benadryl 12.5 mg/5 mL oral elixir; Maalox 200 mg-200 mg-20 mg/5 mL oral suspension; Xylocaine Viscous 2 % mucosal solution;[Generic substitution ok] 1:1:1 compound Per 300 mL. Swish/spit. Continued cholecalciferol (vitamin D3) [Vitamin D3] 5,000 unit Tablet 5,000 unit PO 4XWK Rx Instructions: Thursday,Thursday,,Thursday cholecalciferol (vitamin D3) [Vitamin D3] 5,000 unit Tablet 10,000 unit PO [id number] Rx Instructions: Thursday,Thursday,Thursday diphenhydramine HCl 25 mg tablet 25 mg PO Q6H PRN (Reason: allergic reaction) Qty: 20 0RF Rx Instructions: until resolution of severe allergic reaction dexamethasone 4 mg tablet 4 mg PO DIRECTED Rx Instructions: Take 1 tab the night before chemo and 1 tab the am of chemo. ondansetron HCl 8 mg tablet 8 mg PO Q8 PRN (Reason: Nausea) prochlorperazine maleate 10 mg tablet 10 mg PO Q6 PRN (Reason: Nausea) magnesium 250 mg tablet 250 mg PO DAILY Discharge Orders: Discharge Order (Routine); Ordered 03/22/22 Ordered By: Jose Eduardo Saul/Other Patient Handouts: Caring for Someone Who Has COVID-19, Dis infecting Your Home of COVID-19, Low-Fiber Diet, COVID-19 Home Care, C. Diff Prevent Infection, What Is C. Diff? Admission Data Admit Date/Time: 03/17/22 20:28 Attending Provider: Jose Eduardo Zhang Admit Provider: Barak Palomino Primary Care Provider: Argentina Mcneill Other Providers: Barak Palomino Other Interventions: Discharge Summary Assessment (RN) Last Done: 03/22/22 12:15 Coding Level of Care Code D/C DAY MANAGEMENT >30 MINS Diagnoses COVID-19 U07.1 C. difficile colitis A04.72 Pancytopenia due to antineoplastic chemotherapy D61.810; T45.1X5A Hypomagnesemia E83.42 Febrile neutropenia D70.9; R50.81 Acute kidney injury N17.9 Acute hyponatremia E87.1 Metastatic carcinoma C79.9 DVT prophylaxis Z29.9 Hypokalemia E87.6 Mucositis (ulcerative) due to antineoplastic therapy K12.31
[2022-03-22] MEDS: COLESTIPOL HCL 1 GM TAB PO SCH (13:51)
[2022-03-22] MEDS ORDERED: FIDAXOMICIN 200 MG TAB PO SCH ×2 (21:00)
== END 2022-03-22 15:33 | disposition home or self-care (01) | DRG 177 ==
LOC: ED 16:17 → SUATTDRO 20:28 → EDINP 20:28 → 2E 23:13

== ENCOUNTER 2025-04-11 10:10 | Inpatient (IN) ==
--- NOTE | 2025-04-11 10:34 | Emergency Department Note ---
Impression & Plan Hemoptysis, Pulmonary embolism, Metastatic disease ED Provider Note CHIEF COMPLAINT: Hemoptysis HISTORY OF PRESENTING ILLNESS: The patient is a pleasant 70-year-old female who arrives to the emergency department with her for evaluation of hemoptysis. She reports she had 3 episodes this morning of bright red blood. She states she is currently receiving chemo for metastatic rectal cancer. She reports last chemo treatment 04/05, which she had a significant reaction to, which required hospitalization. She states she is currently being treated for a urinary tract infection. She denies chest pain, shortness of breath. She reports no dizziness or lightheadedness. Vital signs are currently stable, she is afebrile. REVIEW OF SYSTEMS: See HPI for pertinent positives and pertinent negatives. ALLERGIES: See below MEDICATIONS: See below PAST MEDICAL HISTORY: See below PHYSICAL EXAM: VITALS: Vitals are noted on the nurse's note and reviewed by myself. Vital signs stable. GENERAL: 70-year-old female, in no acute distress, nondiaphoretic, well- developed well-nourished. SKIN: The skin was without rashes, erythema, edema, or bruising. HEAD: Normocephalic atraumatic. HEART: Tachycardia with regular rhythm without murmurs gallops or rubs. LUNGS: Diminished lung sounds bilateral upper lobes, with crackles noted. ABDOMEN: Positive bowel sounds x 4. Soft, nontender, without masses or organomegaly. Negron sign negative. No guarding or rebound tenderness. MUSCULOSKELETAL: No muscle atrophy, erythema, or edema noted. Normal gait. Strength 5/5 throughout. NEURO: Patient was alert and oriented to person place and time. No focal neurological deficits. DIFFERENTIAL DIAGNOSIS: Acute bronchitis, pneumonia, abscess, TB, malignancy, airway trauma, PE, pulmonary hypertension, cardiac, coagulopathy, foreign body, as well as other pathologies. ED COURSE AND MEDICAL DECISION MAKING: HISTORY FROM INDEPENDENT HISTORIAN: at bedside serving as secondary historian. MEDICATIONS GIVEN: Weight-based heparin no bolus MONITOR: Continuous rn cardiac cath: Order was placed for continuous rn cardiac cath. Patient was placed on the rn cardiac cath and continuous pulse ox. Patient was noted to be in normal sinus rhythm at an initial rate of 93 bpm per my interpretation. EKG: EKG was interpreted by myself as normal sinus rhythm at a rate of 74 bpm, no ST elevation or depression. Previous for comparison from 04/05 shows no significant change. INTERPRETATION OF LABS: I interpreted the labs with full lab results as below in the lab section of this note. Pertinent lab results discussed in the MDM section below. INTERPRETATION OF IMAGING: Imaging studies were interpreted by myself and read by radiology as per the imaging section of this note. CHRONIC MEDICAL/SOCIAL CONDITIONS AFFECTING CARE: Metastatic disease MDM SUMMARY: The patient is a pleasant, 70-year-old female who arrives to the emergency department for evaluation of the above-stated complaint. Mediport was accessed, lab work was obtained. Lab work shows leukocytosis 14.65, with chronic but stable anemia. CMP shows slight hypocalcemia 8.3, albumin 2.8, troponin 7.1. Upper respiratory viral panel negative. Chest x-ray imaging per my interpretation shows no acute cardiopulmonary process. Due to patient's metastatic disease, and vital signs, D-dimer was deferred, and CT imaging of the chest was obtained to rule out PE. CT imaging per my interpretation shows segmental pulmonary embolus within the right lower lobe which is new since CT of March 09, 2025. There is also mild to moderate decrease in size of pulmonary metastasis since the CT with slight decrease in mediastinal lymphadenopathy. There is no change in the trace bilateral pleural effusions. Patient was placed on weight-based heparin dosing, with no bolus. Patient will be admitted to the [facility] hospitalist group. Dr. Black, agreed to evaluate and accept the patient for admission. Please refer to his documentation for further patient workup and care. DIAGNOSIS: Hemoptysis, pulmonary embolism The patient's case was discussed with Dr. Louis, who agreed with my evaluation and treatment plan. I have personally spent greater than 30 minutes of critical care time in the direct management of this patient. This includes bedside care, interpretation of diagnostic studies, and testing, discussion with consultants, patient, and family members, and other required patient management activities. This 30 minutes is in excess of all separately billable procedures. The chart was completed utilizing [employer] Speech voice recognition software. Grammatical errors, random word insertions, pronoun errors, and incomplete sentences are an occasional consequence of this system due to software limitations, ambient noise, and hardware issues. Any formal questions or concerns about the content, text, or information contained within the body of this dictation should be directly addressed to the provider for clarification. 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 Rectal cancer (Chronic) Colorectal cancer (03/2018), no surgery, had chemo treatments Port-A-Cath in place (01/07/23) Infected venous access port Port removed 12/12/22; per surgeon records- culture grew out MRSA. Needs IV access for chemo- pt to continue with Hibiclens baths as prescribed- ID feels it is safe for patient to proceed with new port placement- will attempt contralateral site History of removal of Port-a-Cath (12/12/22) Removal of Access Port H/O nasal polypectomy (Acute) x2 Asthma History of endoscopic sinus surgery History of colonoscopy Most recent 2017 History of section x1 Peptic ulcer disease , hx bleeding ulcer History of esophagogastroduodenoscopy (EGD) Lung nodule LLE nodule s/p surgical removal 05/2018, "benign" Medical History Maintenance chemotherapy Receives chemotherapy with [facility]. 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 Daughter No problems noted. Other No family history of adverse response to anesthesia Social History Smoking Status: Never smoker Second Hand Exposure: No; Do You Dip or Chew Tobacco: No; Hx Alcohol Use: No Hx Substance Use: No Preferred Language: Welsh Communication Ability: Effective Visual Impairment: No Limitations Hearing Ability: Hard of Hearing Platform Architect Required: No Beliefs That Will Affect Care: None marital status: Current Living Situation: Spouse current occupational status: retired current occupation: Teacher How many Children do You have: 1 Feels Safe at Home: Yes Diet: regular caffeine: Yes (1 cup/day) during the past year weight has: remained stable Assistive Devices: Glasses Allergies Allergies Allergy/AdvReac Type Severity Reaction Status Date / Time Penicillins Allergy Intermediate Rash, hives Verified 01/24/25 13:58 sulfamethoxazole Allergy Intermediate Rash Verified 01/24/25 13:58 [From Bactrim] trimethoprim [From Bactrim] Allergy Intermediate Rash Verified 01/24/25 13:58 vancomycin Allergy Intermediate Hives Verified 01/24/25 13:58 aspirin AdvReac Intermediate Hx Verified 01/24/25 13:58 bleeding gastric ulcer ciprofloxacin [From Cipro] AdvReac Intermediate N/V Verified 01/24/25 13:58 hydromorphone [From Dilaudid] AdvReac Intermediate Nightmare Verified 01/24/25 13:58 morphine AdvReac Intermediate Dizziness Verified 01/24/25 13:58 clindomycin Allergy Unknown Uncoded 01/24/25 13:58 Home Meds Home Medications Medication Instructions Recorded Confirmed acetaminophen 325 mg capsule 325 mg PO .6 times/day PRN 01/24/25 01/24/25 (Tylenol) albuterol sulfate 90 mcg/actuation 2 puff inhalation Q6H PRN 01/24/25 01/24/25 aerosol inhaler cholecalciferol (vitamin D3) 125 20,000 unit PO DAILY 01/24/25 01/24/25 mcg (5,000 unit) tablet (Vitamin D3) polyethylene glycol 3350 17 17 g PO DAILY PRN 01/24/25 01/24/25 gram/dose oral powder (Miralax) sennosides 8.6 mg tablet (Senna 8.6 mg PO BID PRN 01/24/25 01/24/25 Laxative) Previous Rx's Medication Instructions Recorded diphenhydramine HCl 25 mg tablet 25 mg PO Q6H PRN allergic reaction 06/05/19 #20 tabs lidocaine HCl 4 % topical cream 1 applic topical Q6H rectal cancer 10/27/24 pain 1 month #120 grams ondansetron HCl 8 mg tablet 8 mg PO Q8H PRN nausea and 10/27/24 vomiting 1 month #90 tabs Results & Data (ED) Vital Signs Vital Signs - 24 hr 04/11/25 10:18 04/11/25 10:44 04/11/25 12:11 Temperature 36.7 C Temperature Source Oral Pulse Rate 93 H 68 Pulse Rate [Apical] 60 Respiratory Rate 20 16 Respiratory Effort / Characteristics Non-Labored Spontaneous Respiratory Depth Normal Blood Pressure 103/58 L Blood Pressure [Right Arm] 101/65 Blood Pressure Mean 73 Blood Pressure Mean [Right Arm] 77 Pulse Oximetry 99 100 94 Oxygen Delivery Method Room Air Room Air Room Air Sepsis Recent Fever Within 48 Hours No Sepsis New/Unexplained Change in Mental Status N/A Sepsis Action Taken by Nursing No Action Required 04/11/25 12:15 Temperature Temperature Source Pulse Rate 90 Pulse Rate [Apical] Respiratory Rate Respiratory Effort / Characteristics Respiratory Depth Blood Pressure Blood Pressure [Right Arm] Blood Pressure Mean Blood Pressure Mean [Right Arm] Pulse Oximetry Oxygen Delivery Method Sepsis Recent Fever Within 48 Hours Sepsis New/Unexplained Change in Mental Status Sepsis Action Taken by Intermediate Medications Current Medication List: was personally reviewed by me Laboratory Data Attestation: I reviewed the patient's lab results. 04/11/25 10:40 04/11/25 10:40 Lab Results 04/11/25 Range/Units 10:40 WBC 14.65 H (4.8-10.8) K/ul RBC 3.99 L (4.20-5.40) M/uL Hgb 9.9 L (12.0-16.0) g/dl Hct 32.3 L (37.0-47.0) % MCV 81.0 (80.0-100.0) fL MCH 24.8 L (25.0-34.0) pg MCHC 30.7 L (32.0-36.0) g/dL RDW Std Deviation 45.3 (36.4-46.3) fL RDW Coeff of Mariaelena 16.2 H (11.5-14.5) % Plt Count 244 (130-400) K/uL MPV 8.8 L (9.4-12.4) fL Immature Gran % (Auto) 1.2 % Neut % (Auto) 86.7 % Lymph % (Auto) 8.2 % Whiteside % (Auto) 3.4 % Eos % (Auto) 0.2 % Baso % (Auto) 0.3 % Neut # (Auto) 12.70 H (1.40-6.50) K/uL Lymph # (Auto) 1.20 (1.20-3.40) K/uL Whiteside # (Auto) 0.50 (0.11-0.59) K/uL Eos # (Auto) 0.03 (0.00-0.50) K/uL Baso # (Auto) 0.05 (0.00-0.20) K/uL Immature Gran # (Auto) 0.17 (0.01-0.20) K/uL Sodium 137 (136-145) mmol/L Potassium 3.9 (3.5-5.1) mmol/L Chloride 103 (98-107) mmol/L Carbon Dioxide 26 (21-32) mmol/L Anion Gap 8 (3-11) BUN 5 L (6-23) mg/dl Creatinine 0.51 L (0.6-1.2) mg/dl Est Cr Clr Drug Dosing 85.1 ml/min eGFR 99.73 BUN/Creatinine Ratio 9.8 L (10-20) Glucose 103 H (70-99(Fasting)) mg/dl Calcium 8.3 L (8.6-10.3) mg/dl Total Bilirubin 0.3 (0.2-1.0) mg/dl AST 21 (13-39) U/L ALT 12 (7-52) U/L Alkaline Phosphatase 69 (34-104) U/L Troponin I High Sens 7.1 (0-14) pg/ml Total Protein 6.0 (6.0-8.3) gm/dl Albumin 2.8 L (3.4-5.0) gm/dl Globulin 3.2 (2.5-4.0) gm/dl Albumin/Globulin Ratio 0.9 (0.9-2) Adenovirus (PCR) Not Detected (NotDetected) B. pertussis DNA (PCR) Not Detected (NotDetected) B.parapertussis DNA PCR Not Detected (NotDetected) C. pneumoniae DNA (PCR) Not Detected (NotDetected) Coronavirus OC43 (PCR) Not Detected (NotDetected) Coronavirus HKU1 (PCR) Not Detected (NotDetected) Coronavirus 229E (PCR) Not Detected (NotDetected) SARS-CoV-2 (PCR) Not Detected (NotDetected) Coronavirus NL63 (PCR) Not Detected (NotDetected) Human Metapneumovir PCR Not Detected (NotDetected) Influenza Type A (PCR) Not Detected (NotDetected) Influenza Type B (PCR) Not Detected (NotDetected) M. pneumoniae (PCR) Not Detected (NotDetected) Parainfluenza 1 (PCR) Not Detected (NotDetected) Parainfluenza 2 (PCR) Not Detected (NotDetected) Parainfluenza 3 (PCR) Not Detected (NotDetected) Parainfluenza 4 (PCR) Not Detected (NotDetected) RSV (PCR) Not Detected (NotDetected) Entero/Rhino (PCR) Not Detected (NotDetected) Administered Medications Discontinued Medications Acetaminophen (Acetaminophen 500 Mg Tab) 1,000 mg PO NOW STA Stop: 04/11/25 12:09 Last Admin: 04/11/25 12:11 Dose: 1,000 mg Documented By: LAURA Ioversol (Optiray 320 125ml) 120 ml IV ONCE ONE Stop: 04/11/25 11:35 Last Admin: 04/11/25 11:34 Dose: 120 ml Documented By: TRISTAN Imaging Data Attestation: I personally reviewed and interpreted this imaging study as follows: Radiologist's Impression: Chest CTA 04/11/25 10:29 CT ANGIOGRAM OF THE CHEST CLINICAL HISTORY: Hemoptysis. Shortness of breath. Colorectal cancer. COMPARISON STUDY: Chest radiograph performed earlier today. Chest CT March 09, 2025. TECHNIQUE: Following the IV administration of 120 cc of Optiray 320, CT angiogram of the chest was performed from the upper abdomen to the thoracic inlet utilizing the pulmonary embolus protocol. Images are reviewed in the axial, sagittal, and coronal planes. 3-D MIPS images are created and assessed. IV contrast was administered without complication. A dose lowering technique was utilized adhering to the principles of ALARA. CT DOSE: 273.76 mGy.cm FINDINGS: A right internal jugular [id number] is in place. The size of the heart is normal. No pericardial effusion. A segmental pulmonary embolus within the right lower lobe on image 96 of [address] of March 09, 2025. No additional pulmonary emboli are identified. There is no thoracic aortic dissection. Mildly enlarged mediastinal lymph nodes have slightly decreased in size since CT of March 09, 2025. A subcarinal lymph node on image 141 measures 2.1 x 1.1 cm, previously 3.3 x 1.4 cm. There has been mild to moderate decrease in size of numerous pulmonary metastases since prior CT. Index right upper lobe lesion on image 164 measures 5.9 x 4.8 cm, previously approximately 6.8 x 6.1 cm. A right lower lobe lesion on image 127 measures 4.7 x 3.7 cm, previously 5.5 x 4.2 cm. A left upper lobe lesion on image 147 measures 4.4 x 4.1 cm, previously 4.7 x 4.5 cm. No new pulmonary metastases are present. There are trace bilateral pleural effusions. These are similar to prior CT. There are no suspicious lesions within the bony thorax. Visualized portions of the upper abdomen are unremarkable. IMPRESSION: 1. Segmental pulmonary embolus within the right lower lobe which is new since CT of March 09, 2025. 2. Mild to moderate decrease in size of pulmonary metastases since CT of March 09, 2025. Slight decrease in mediastinal lymphadenopathy. 3. No change in trace bilateral pleural effusions. ACT 112: Negative or not required by law. Electronically signed by: Tony Lucas M.D. 04/11/2025 12:10 PM Chest X-Ray 04/11/25 10:29 XR chest 1V portable CLINICAL HISTORY: Dyspnea COMPARISON STUDY: 04/05/2025 FINDINGS: Stable right chest port. Heart size and pulmonary vasculature are normal. Multiple scattered bilateral lung masses are grossly stable. No new consolidation or pleural effusion seen. No pneumothorax. IMPRESSION: Stable exam. ACT 112: Negative or not required by law. Electronically signed by: Rivas Radford M.D. 04/11/2025 10:52 AM Discharge Plan Visit Data Chief Complaint: Cough Stated Complaint: COUGHING UP BLOOD ED Provider: Taras Louis ED Midlevel Provider: Jacki De Jesus Discharge Problem: Hemoptysis, Pulmonary embolism, Metastatic disease Patient Disposition: Admitted As Inpatient Condition: Fair Forms Stand Alone Forms: My [facility] [employer] Prescriptions Prescriptions: No Action acetaminophen [Tylenol] 325 mg capsule 325 mg PO .6 times/day PRN polyethylene glycol 3350 [Miralax] 17 gram/dose powder 17 g PO DAILY PRN albuterol sulfate 90 mcg/actuation HFA aerosol inhaler 2 puff inhalation Q6H PRN sennosides [Senna Laxative] 8.6 mg tablet 8.6 mg PO BID PRN lidocaine HCl 4 % cream 1 applic topical Q6H 30 Days Qty: 120 6RF ondansetron HCl 8 mg tablet 8 mg PO Q8H PRN (Reason: nausea and vomiting) 30 Days Qty: 90 3RF cholecalciferol (vitamin D3) [Vitamin D3] 125 mcg (5,000 unit) tablet 20,000 unit PO DAILY Rx Instructions: Thursday,Thursday,,Thursday diphenhydramine HCl 25 mg tablet 25 mg PO Q6H PRN (Reason: allergic reaction) Qty: 20 0RF Rx Instructions: until resolution of severe allergic reaction Referrals Referrals: Kinza Sanchez DO [Primary Care Provider] -
--- NOTE | 2025-04-11 10:54 | XRay Report ---
XR chest 1V portable CLINICAL HISTORY: Dyspnea COMPARISON STUDY: 04/05/2025 FINDINGS: Stable right chest port. Heart size and pulmonary vasculature are normal. Multiple scattere d bilateral lung masses are grossly stable. No new consolidation or pleural effusion seen. No pneumot horax. IMPRESSION: Stable exam. ACT 112: Negative or not required by law. Electronically signed by: Rivas Radford M.D. 04/11/2025 10:52 AM
[2025-04-11 11:00] LABS: Hematocrit (blood only) 32.3 % (37.0-47.0); Hemoglobin 9.9 g/dl (12.0-16.0); Immature Granulocytes # (auto) 0.17 K/uL (0.01-0.20); Immature Granulocytes % (auto) 1.2 %; Mean Corpuscular Hemoglobin 24.8 pg (25.0-34.0); Mean Corpuscular Volume 81.0 fL (80.0-100.0); Platelet Count 244 K/uL (130-400); RDW Standard Deviation 45.3 fL (36.4-46.3); Red Blood Count 3.99 M/uL (4.20-5.40); White Blood Count 14.65 K/ul (4.8-10.8)
[2025-04-11 11:24] LABS: Alanine Aminotransferase 12.0 U/L (7-52); Albumin Globulin Ratio 0.9 (0.9-2); Alkaline Phosphatase 69.0 U/L (34-104); Anion Gap 8.0 (3-11); Bilirubin,Total 0.3 mg/dl (0.2-1.0); Blood Urea Nitrogen 5.0 mg/dl (6-23); Calcium 8.3 mg/dl (8.6-10.3); Carbon Dioxide 26.0 mmol/L (21-32); Chloride 103.0 mmol/L (98-107); Creatinine Clr Calc Pharmacy 85.1 ml/min; Globulin 3.2 gm/dl (2.5-4.0); Glucose 103.0 mg/dl (70-99(Fasting)); Potassium 3.9 mmol/L (3.5-5.1); Sodium 137.0 mmol/L (136-145); Total Protein 6.0 gm/dl (6.0-8.3)
[2025-04-11] MEDS: OPTIRAY 320 125ml IV ONE (11:34)
[2025-04-11 11:46] LABS: Chlamydia pneumoniae PCR Not Detected (NotDetected); Coronavirus 229E PCR Not Detected (NotDetected); Coronavirus CoV-2 (COVID19)PCR Not Detected (NotDetected); Coronavirus HKU1 PCR Not Detected (NotDetected); Coronavirus NL63 PCR Not Detected (NotDetected); Coronavirus OC43PCR Not Detected (NotDetected); Human Metapneumovirus PCR Not Detected (NotDetected); Parainfluenza Virus 1 PCR Not Detected (NotDetected); Parainfluenza Virus 2 PCR Not Detected (NotDetected); Parainfluenza Virus 3 PCR Not Detected (NotDetected); Parainfluenza Virus 4 PCR Not Detected (NotDetected); Respiratory Syncytial VirusPCR Not Detected (NotDetected); Rhinovirus/Enterovirus PCR Not Detected (NotDetected)
[2025-04-11] MEDS: ACETAMINOPHEN 500 MG TAB PO STA (12:11)
--- NOTE | 2025-04-11 12:12 | CT Scan Report ---
CT ANGIOGRAM OF THE CHEST CLINICAL HISTORY: Hemoptysis. Shortness of breath. Colorectal cancer. COMPARISON STUDY: Chest radiograph performed earlier today. Chest CT March 09, 2025. TECHNIQUE: Following the IV administration of 120 cc of Optiray 320, CT angiogram of the chest was pe rformed from the upper abdomen to the thoracic inlet utilizing the pulmonary embolus protocol. Images are reviewed in the axial, sagittal, and coronal planes. 3-D MIPS images are created and assessed. I V contrast was administered without complication. A dose lowering technique was utilized adhering to the principles of ALARA. CT DOSE: 273.76 mGy.cm FINDINGS: A right internal jugular Pobyjc-v-Sers is in place. The size of the heart is normal. No per icardial effusion. A segmental pulmonary embolus within the right lower lobe on image 96 of 235 is ne w since CT of March 09, 2025. No additional pulmonary emboli are identified. There is no thoracic aor tic dissection. Mildly enlarged mediastinal lymph nodes have slightly decreased in size since CT of A [id number]. A subcarinal lymph node on image 141 measures 2.1 x 1.1 cm, previously 3.3 x 1.4 cm. T here has been mild to moderate decrease in size of numerous pulmonary metastases since prior CT. Inde x right upper lobe lesion on image 164 measures 5.9 x 4.8 cm, previously approximately 6.8 x 6.1 cm. A right lower lobe lesion on image 127 measures 4.7 x 3.7 cm, previously 5.5 x 4.2 cm. A left upper l obe lesion on image 147 measures 4.4 x 4.1 cm, previously 4.7 x 4.5 cm. No new pulmonary metastases a re present. There are trace bilateral pleural effusions. These are similar to prior CT. There are no suspicious lesions within the bony thorax. Visualized portions of the upper abdomen are unremarkable. IMPRESSION: 1. Segmental pulmonary embolus within the right lower lobe which is new since CT of March 09, 2025. 2. Mild to moderate decrease in size of pulmonary metastases since CT of March 09, 2025. Slight decre ase in mediastinal lymphadenopathy. 3. No change in trace bilateral pleural effusions. ACT 112: Negative or not required by law. Electronically signed by: Tony Lucas M.D. 04/11/2025 12:10 PM
[2025-04-11] MEDS ORDERED: SENNA 8.6 MG TAB PO PRN (12:51)
[2025-04-11] MEDS ORDERED: ALBUTEROL HFA 8 GM INHALER INH PRN (12:51)
[2025-04-11] MEDS ORDERED: POLYETHYLENE (MIRALAX) 17 GM PACK PO PRN (12:51)
--- NOTE | 2025-04-11 12:54 | Discharge Summary ---
Discharge Summary Date of Service April 11, 2025 Principal Dx & Hospital Course #1 = Principal Diagnosis Discharge Plan Visit Data Patient Disposition: Admitted As Inpatient Condition: Fair Forms Stand Alone Forms: [facility] Prescriptions Prescriptions: No Action acetaminophen [Tylenol] 325 mg capsule 325 mg PO .6 times/day PRN polyethylene glycol 3350 [Miralax] 17 gram/dose powder 17 g PO DAILY PRN albuterol sulfate 90 mcg/actuation HFA aerosol inhaler 2 puff inhalation Q6H PRN sennosides [Senna Laxative] 8.6 mg tablet 8.6 mg PO BID PRN lidocaine HCl 4 % cream 1 applic topical Q6H 30 Days Qty: 120 6RF ondansetron HCl 8 mg tablet 8 mg PO Q8H PRN (Reason: nausea and vomiting) 30 Days Qty: 90 3RF cholecalciferol (vitamin D3) [Vitamin D3] 125 mcg (5,000 unit) tablet 20,000 unit PO DAILY Rx Instructions: Thursday,Thursday,,Thursday diphenhydramine HCl 25 mg tablet 25 mg PO Q6H PRN (Reason: allergic reaction) Qty: 20 0RF Rx Instructions: until resolution of severe allergic reaction Referrals Referrals: Kinza Sanhcez DO [Primary Care Provider] - Hospital Stay Data Consultations 04/11/25 12:39 ED Decision to Admit Stat Diagnostic Imagining Performed 04/11/25 10:29 CT angio chest PE protocol Stat Coding
[2025-04-11] MEDS ORDERED: ACETAMINOPHEN 325 MG TAB PO PRN (13:08)
[2025-04-11] MEDS ORDERED: diphenhydrAMINE Capsule 25 MG CAP PO PRN (13:09)
[2025-04-11] MEDS ORDERED: ONDANSETRON 8MG OD TAB PO PRN (13:10)
[2025-04-11] MEDS: Heparin IV Adult Wt-Based Standard *NO* INITIAL Bolus Protocol IV STA (13:20)
[2025-04-11] MEDS: HEPARIN 25000 UNIT/500 ML D5W 25,000 UNITS/500 ML BAG IV SCH (13:21)
[2025-04-11 13:25] LABS: INR 1.0 (0.9-1.1); Partial Thromboplastin Time 27 Seconds (21-31); Prothrombin Time 11.1 Seconds (9.0-12.0)
--- NOTE | 2025-04-11 13:27 | History & Physical Report ---
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 onc, and cancer clinic here at [place] History of Present Illness Chief Complaint: hemoptysis Primary Care Provider: Kinza Sanchez, 70 yo female with PMH described below reports she was her normal state of health, when this AM she was found to have a cough with bloody sputum. Patient reports this happened on 3 occasions which led her to come to the ER. Patient denies any SOB, fever, chills, nausea, vomiting, worsening weakness, headache, chest pain, SOB, focal weakness, blurry vision, loss of stature. Allergies Allergy/AdvReac Type Severity Reaction Status Date / Time Penicillins Allergy Intermediate Rash, hives Verified 01/24/25 13:58 sulfamethoxazole Allergy Intermediate Rash Verified 01/24/25 13:58 [From Bactrim] trimethoprim [From Bactrim] Allergy Intermediate Rash Verified 01/24/25 13:58 vancomycin Allergy Intermediate Hives Verified 01/24/25 13:58 aspirin AdvReac Intermediate Hx Verified 01/24/25 13:58 bleeding gastric ulcer ciprofloxacin [From Cipro] AdvReac Intermediate N/V Verified 01/24/25 13:58 hydromorphone [From Dilaudid] AdvReac Intermediate Nightmare Verified 01/24/25 13:58 morphine AdvReac Intermediate Dizziness Verified 01/24/25 13:58 clindomycin Allergy Unknown Uncoded 01/24/25 13:58 Home Medications Medication Instructions Recorded Confirmed Type albuterol sulfate 90 mcg/actuation 2 puff inhalation Q6H PRN 01/24/25 04/11/25 History aerosol inhaler Shortness Of Breath Or Wheezing polyethylene glycol 3350 17 17 g PO DAILY PRN Constipation 01/24/25 04/11/25 History gram/dose oral powder (Miralax) sennosides 8.6 mg tablet (Senna 8.6 mg PO BID PRN Constipation 01/24/25 04/11/25 History Laxative) fentanyl 50 mcg/hr transdermal 50 mcg transdermal Q3D 04/11/25 04/11/25 History patch lidocaine HCl 2 % mucosal solution 10 ml PO DIRECTED 04/11/25 04/11/25 History lidocaine HCl 4 % (40 mg/mL) See Rx Instructions .Route .COMPLEX 04/11/25 04/11/25 History mucosal solution ondansetron HCl 8 mg tablet 8 mg PO Q8H PRN Nausea And Vomiting 04/11/25 04/11/25 History oxycodone-acetaminophen 5 mg-325 1 tab PO DIRECTED PRN Pain 04/11/25 04/11/25 History mg tablet urea 10 % topical cream 1 applic topical TID 04/11/25 04/11/25 History Past Med/Surg History Problem List Metastatic disease (Acute) Pulmonary embolism (Acute) Hemoptysis (Acute) Leukopenia (Acute) Itching (Acute) Allergic reaction (Acute) Nausea & vomiting Palliative care by specialist Cancer related pain Lali infection 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 Rectal cancer (Chronic) Colorectal cancer (03/2018), no surgery, had chemo treatments Port-A-Cath in place (01/07/23) Infected venous access port Port removed 12/12/22; per surgeon records- culture grew out MRSA. Needs IV access for chemo- pt to continue with Hibiclens baths as prescribed- ID feels it is safe for patient to proceed with new port placement- will attempt contralateral site History of removal of Port-a-Cath (12/12/22) Removal of Access Port H/O nasal polypectomy (Acute) x2 Asthma History of endoscopic sinus surgery History of colonoscopy Most recent 2017 History of section x1 Peptic ulcer disease , hx bleeding ulcer History of esophagogastroduodenoscopy (EGD) Lung nodule LLE nodule s/p surgical removal 05/2018, "benign" Medical History Maintenance chemotherapy Receives chemotherapy with [facility]. 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 Daughter No problems noted. Other No family history of adverse response to anesthesia Social History Smoking Status: Never smoker Second Hand Exposure: No; Do You Dip or Chew Tobacco: No; Hx Alcohol Use: No Hx Substance Use: No Preferred Language: Namibian Communication Ability: Effective Visual Impairment: No Limitations Hearing Ability: Hard of Hearing Shake Loader Required: No Beliefs That Will Affect Care: None marital status: Current Living Situation: Spouse current occupational status: retired current occupation: Teacher How many Children do You have: 1 Other Information That Helps Us Care for You: No Feels Safe at Home: Yes Safety Concerns: Feels Safe At This Time Diet: regular caffeine: Yes (1 cup/day) during the past year weight has: remained stable Assistive Devices: None Review of Systems Review of Systems: All systems reviewed & are unremarkable except as noted in HPI & below Physical Exam Constitutional: WD/WN, vitals as above Neck: trachea midline, no thyromegaly Respiratory: Auscultation: + diminished lung sounds (bilaterally) and + rales (bibasilar) not using accessory muscles to breath Cardiovascular: RRR, no murmur, no edema Gastrointestinal (Abdomen): normal bowel sounds, soft, nontender, no hepatosplenomegaly Psychiatric: A+Ox3, euthymic affect Results & Data Results & Data Vital Signs (Past 12 Hours) Vital Signs Temp Pulse Pulse Resp BP BP Pulse Ox 04/11/25 12:49 67 16 116/59 L 100 04/11/25 12:49 67 16 100 04/11/25 12:15 90 04/11/25 12:11 60 16 101/65 94 04/11/25 10:44 68 100 04/11/25 10:18 36.7 C 93 H 20 103/58 L 99 O2 Del Method 04/11/25 12:49 Room Air 04/11/25 12:49 Room Air 04/11/25 12:15 04/11/25 12:11 Room Air 04/11/25 10:44 Room Air 04/11/25 10:18 Room Air PG Care Time/CCT Total # of Minutes Spent Total Time Spent with Patient: Total time spent is greater than 50% in coordination of care (as documented) at patient's floor/unit and/or counseling patient: Coding Level of Care Code 74546 INT INP/OBS CARE 3/75MIN Diagnoses Pulmonary embolism I26.99 Metastatic disease C79.9 Hemoptysis R04.2 Cancer related pain G89.3
[2025-04-11 13:39] LABS: ANTI-Xa, UFH(UnfractionatedHep < 0.10 IU/ml (0.3-0.7)
--- NOTE | 2025-04-11 14:35 | Electrocardiogram Report ---
Test Reason : Blood Pressure : */* mmHG Vent. Rate : 74 BPM Atrial Rate : 74 BPM P-R Int : 112 ms QRS Dur : 96 ms QT Int : 402 ms P-R-T Axes : 44 -7 34 degrees QTcB Int : 446 ms Normal sinus rhythm Minimal voltage criteria for LVH, may be normal variant Borderline ECG When compared with ECG of 05-Apr-2025 15:29, No significant change was found Confirmed by Jason Elizabeth ([id number]) on 04/11/2025 2:35:30 PM Referred By: REFERRED SELF Confirmed By: Jason Elizabeth
[2025-04-11] MEDS: LIDOCAINE 4% CREAM 15 GM TUBE EXT SCH (15:01)
[2025-04-11 21:26] LABS: ANTI-Xa, UFH(UnfractionatedHep 0.33 IU/ml (0.3-0.7)
[2025-04-12] MEDS ORDERED: HEPARIN 100 UNIT/ML 5ML FLUSH FLUSH PRN (03:21)
[2025-04-12 06:06] LABS: Hematocrit (blood only) 29.4 % (37.0-47.0); Hemoglobin 9.5 g/dl (12.0-16.0); Mean Corpuscular Hemoglobin 25.7 pg (25.0-34.0); Mean Corpuscular Volume 79.7 fL (80.0-100.0); Platelet Count 248 K/uL (130-400); RDW Standard Deviation 45.6 fL (36.4-46.3); Red Blood Count 3.69 M/uL (4.20-5.40); White Blood Count 8.57 K/ul (4.8-10.8)
[2025-04-12 06:23] LABS: Anion Gap 5.0 (3-11); Blood Urea Nitrogen 5.0 mg/dl (6-23); Calcium 7.8 mg/dl (8.6-10.3); Carbon Dioxide 26.0 mmol/L (21-32); Chloride 105.0 mmol/L (98-107); Creatinine Clr Calc Pharmacy 81.0 ml/min; Glucose 110.0 mg/dl (70-99(Fasting)); Potassium 3.8 mmol/L (3.5-5.1); Sodium 136.0 mmol/L (136-145)
[2025-04-12 06:28] LABS: ANTI-Xa, UFH(UnfractionatedHep 0.38 IU/ml (0.3-0.7)
[2025-04-12 06:33] LABS: Appearance Urine Turbid (Clear); Bacteria Urine Automated 1+ (None Seen); Glucose Urine UA Negative (Negative); RBC Urine Automated >20 /hpf (0-2)
[2025-04-12] MEDS: CHOLECALCIFEROL 125 MCG (5,000 UNITS) TAB PO SCH (09:20)
--- NOTE | 2025-04-12 10:17 | Pulmonary Consultation ---
Date of Consultation April 12, 2025 Assessment & Plan (1) Pulmonary embolism: Patient with segmental right lower lobe PE likely provoked from recent hospital stay due to colitis and underlying active metastatic malignancy. Recommend watching her on a heparin infusion for an additional day and monitoring h emoglobin and hemoptysis symptoms. If stable then consider discharge on DOAC versus Lovenox. Would recommend engaging with hematology regarding best practice for anticoagulation in this patient. No role for additional interventions at this time such as bronchoscopy or IR as she is clinically stable and her hemoptysis has improved. (2) Metastatic disease: (3) Hemoptysis: History of Present Illness Reason for Consultation: Hemoptysis Attending Physician: Xavier Bolanos MD History of Present Illness 70-year-old female with a history of metastatic adenocarcinoma of the rectum with significant metastatic disease in her chest which appears to be progressing. She presented to the ER due to hemoptysis and was found to have a right lower lobe segmental pulmonary embolism out of pulmonary artery adjacent to her right lower lobe mass. She was started on heparin infusion and remains on heparin. Hemodynamically she is stable with oxygen saturations at 98%. Patient denies any overt hemoptysis today. She does endorse some rust colored sputum. She denies any significant chest pain, fevers, chills or night sweats. Allergies Allergy/AdvReac Type Severity Reaction Status Date / Time Penicillins Allergy Intermediate Rash, hives Verified 01/24/25 13:58 sulfamethoxazole Allergy Intermediate Rash Verified 01/24/25 13:58 [From Bactrim] trimethoprim [From Bactrim] Allergy Intermediate Rash Verified 01/24/25 13:58 vancomycin Allergy Intermediate Hives Verified 01/24/25 13:58 aspirin AdvReac Intermediate Hx Verified 01/24/25 13:58 bleeding gastric ulcer ciprofloxacin [From Cipro] AdvReac Intermediate N/V Verified 01/24/25 13:58 hydromorphone [From Dilaudid] AdvReac Intermediate Nightmare Verified 01/24/25 1 3:58 morphine AdvReac Intermediate Dizziness Verified 01/24/25 13:58 clindomycin Allergy Unknown Uncoded 01/24/25 13:58 Home Medications Medication Instructions Recorded Confirmed Type albuterol sulfate 90 mcg/actuation 2 puff inhalation Q6H PRN 01/24/25 04/11/25 History aerosol inhaler Shortness Of Breath Or Wheezing polyethylene glycol 3350 17 17 g PO DAILY PRN Constipation 01/24/25 04/11/25 History gram/dose oral powder (Miralax) sennosides 8.6 mg tablet (Senna 8.6 mg PO BID PRN Constipation 01/24/25 04/11/25 History Laxative) fentanyl 50 mcg/hr transdermal 50 mcg transdermal Q3D 04/11/25 04/11/25 History patch lidocaine HCl 2 % mucosal solution 10 ml PO DIRECTED 04/11/25 04/11/25 History lidocaine HCl 4 % (40 mg/mL) See Rx Instructions .Route .COMPLEX 04/11/25 04/11/25 History mucosal solution ondansetron HCl 8 mg tablet 8 mg PO Q8H PRN Nausea And Vomiting 04/11/25 04/11/25 History oxycodone-acetaminophen 5 mg-325 1 tab PO DIRECTED PRN Pain 04/11/25 04/11/25 History mg tablet urea 10 % topical cream 1 applic topical TID 04/11/25 04/11/25 History Patient History Medical History Maintenance chemotherapy Receives chemotherapy with [facility]. 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 Daughter No problems noted. Other No family history of adverse response to anesthesia Social History Smoking Status: Never smoker Second Hand Exposure: No; Do You Dip or Chew Tobacco: No; Hx Alcohol Use: No Hx Substance Use: No Preferred Language: Turkish Communication Ability: Effective Visual Impairment: No Limitations Hearing Ability: Hard of Hearing Utility Super[employer] Required: No Beliefs That Will Affect Care: None marital status: Current Living Situation: Spouse current occupational status: retired current occupation: Teacher How many Children do You have: 1 Other Information That Helps Us Care for You: No Feels Safe at Home: Yes Safety Concerns: Feels Safe At This Time Diet: regular caffeine: Yes (1 cup/day) during the past year weight has: remained stable Assistive Devices: None Review of Systems Review of Systems: All systems reviewed & are unremarkable except as noted in HPI & below Physical Exam Physical Exam: Constitutional: Patient appears to be of their stated age. Patient is in no apparent distress. Patient is well-developed. Eyes: Pupils are equal round and reactive to light. Conjunctivae are normal. Anicteric sclera. Ears nose, mouth and throat: Mallampati class 2. Normal posterior oropharynx. Uvula is midline. Neck: Trachea is midline. Visual inspection is normal. Respiratory: Clear to auscultation bilaterally. No use of accessory muscles. No significant clubbing noted. Cardiovascular: Regular rate and rhythm. No murmurs. No edema. Gastrointestinal: Normal bowel sounds, soft, nontender and nondistended. No hepatosplenomegaly noted. Musculoskeletal: No cyanosis. Patient is able to move all extremities. Skin: No rashes, warm dry and intact. Neurologic: No obvious focal neurological deficits seen. Psychiatric: Alert and oriented x3 with a euthymic affect. Results & Data Results & Data Vital Signs (Past 12 Hours) Vital Signs Temp Pulse Resp BP Pulse Ox O2 Del Method 04/12/25 08:16 36.7 C 77 20 102/59 L 98 Room Air 04/12/25 03:58 36.3 C L 72 16 95/59 L 96 Room Air 04/12/25 00:04 36.7 C 70 16 94/58 L 95 Room Air PG Care Time/CCT Total # of Minutes Spent Total Time Spent with Patient: Total time spent is greater than 50% in coordination of care (as documented) at patient's floor/unit and/or counseling patient: Coding Level of Care Code 61194 INT INP/OBS CARE 2/55MIN Diagnoses Pulmonary embolism I26.99 Metastatic disease C79.9 Hemoptysis R04.2
--- NOTE | 2025-04-12 11:12 | Hospitalist Progress Note ---
Date of Service April 12, 2025 Assessment & Plan (1) Pulmonary embolism: Plan: Acute right lower lobe. Probably related to her malignancy. No evidence of DVT in the legs. Heparin drip switched over to Lovenox 1 mg/kg subcutaneously every 12 hours which we will continue at discharge. (2) Metastatic disease: Plan: Rectal carcinoma primary with metastases to lungs. Oncology management (3) Hemoptysis: Plan: Due to acute pulmonary emboli. Now resolved (4) Cancer related pain: Plan: Controlled with fentanyl patch Plan Hopeful discharge to home on Lovenox tomorrow, April 13 Admission and Anticipated Discharge Date Admission Date: April 11, 2025 Subjective Right lower lobe acute pulmonary emboli diagnosed on admission. The patient states her hemoptysis has resolved. Heparin drip switched to Lovenox subcutaneously every 12 hours which we will continue at discharge. Pulmonary consultation and recommendations appreciated. We discussed her CODE STATUS which is currently listed as a full code. The patient and her are considering change to DNR status due to her underlying noncurable malignancy. Hopefully she can go home on Lovenox tomorrowApril 13 Review of Systems 2 Review of Systems: Constitutionalno fever or chills ENTno blurred vision, no double vision, no epistaxis, no sore throat Respiratoryhemoptysis has resolved. Mild exertional shortness of breath. No wheezing. Cardiacno palpitations, no chest pain, no syncope Abraham nausea, vomiting, diarrhea, melena, hematochezia GUno urinary retention, no urinary incontinence, no dysuria, no hematuria Musculoskeletalno joint pain, no muscle tenderness Skinno bruising, no rashes, no pruritus Neurono isolated weakness, no paresthesia, no weakness Psychno depression, no anxiety Physical Exam 2 Physical Exam: General-alert and oriented x3, no fever, no chills HEENT-head atraumatic and normocephalic, pupils equal and reactive to light, extraocular muscles intact Neck-no lymphadenopathy or thyromegaly, trachea midline Chest-bilateral rhonchi. No wheezing. Cardiac-regular rate and rhythm, normal S1 and S2 Abdomen-normal bowel sounds, no hepatosplenomegaly Extremities-no cyanosis, clubbing, or edema Neuro-cranial nerves II through XII intact, motor and sensory function within normal limits, strength symmetrical, no focal deficits Psych-normal affect, normal mood Results & Data Results & Data Vital Signs (Past 12 Hours) Vital Signs Temp Pulse Resp BP Pulse Ox O2 Del Method 04/12/25 08:16 36.7 C 77 20 102/59 L 98 Room Air 04/12/25 03:58 36.3 C L 72 16 95/59 L 96 Room Air 04/12/25 00:04 36.7 C 70 16 94/58 L 95 Room Air Laboratory Results 04/12/25 05:27 04/12/25 05:27 PG Care Time/CCT Total # of Minutes Spent Total Time Spent with Patient: Total time spent is greater than 50% in coordination of care (as documented) at patient's floor/unit and/or counseling patient: Coding Level of Care Code 63664 SUB INP/OBS CARE 3/50MIN Diagnoses Pulmonary embolism I26.99 Metastatic disease C79.9 Hemoptysis R04.2 Cancer related pain G89.3
[2025-04-12] MEDS ORDERED: ENOXAPARIN 1 MG/KG SC SCH (11:15)
[2025-04-12] MEDS: ENOXAPARIN INJ 60 MG/0.6 ML SYR SQ SCH (11:54)
[2025-04-13 04:08] VITALS: RESP 17
[2025-04-13 06:00] LABS: Hematocrit (blood only) 30.7 % (37.0-47.0); Hemoglobin 9.6 g/dl (12.0-16.0); Immature Granulocytes # (auto) 0.05 K/uL (0.01-0.20); Immature Granulocytes % (auto) 0.7 %; Mean Corpuscular Hemoglobin 25.1 pg (25.0-34.0); Mean Corpuscular Volume 80.4 fL (80.0-100.0); Platelet Count 213 K/uL (130-400); RDW Standard Deviation 46.9 fL (36.4-46.3); Red Blood Count 3.82 M/uL (4.20-5.40); White Blood Count 7.00 K/ul (4.8-10.8)
[2025-04-13 06:17] LABS: Anion Gap 6.0 (3-11); Blood Urea Nitrogen 6.0 mg/dl (6-23); Calcium 8.1 mg/dl (8.6-10.3); Carbon Dioxide 25.0 mmol/L (21-32); Chloride 104.0 mmol/L (98-107); Creatinine Clr Calc Pharmacy 88.9 ml/min; Glucose 103.0 mg/dl (70-99(Fasting)); Potassium 3.6 mmol/L (3.5-5.1); Sodium 135.0 mmol/L (136-145)
[2025-04-13 08:17] VITALS: O2SAT 97
[2025-04-13 11:33] VITALS: BP 112/66; PULSE 78; TEMP 98.1
--- NOTE | 2025-04-13 11:46 | Discharge Summary ---
Discharge Summary Date of Service April 13, 2025 Principal Dx & Hospital Course #1 = Principal Diagnosis (1) Pulmonary embolism: Acute right lower lobe. Probably related to her malignancy. No evidence of DVT in the legs. Heparin drip switched over to Lovenox 1 mg/kg subcutaneously every 12 hours which we will continue at discharge, 50 mg subcutaneously every 12 hours. (2) Metastatic disease: Rectal carcinoma primary with metastases to lungs. Oncology management (3) Hemoptysis: Due to acute pulmonary emboli. Now resolved (4) Cancer related pain: Controlled with fentanyl patch Plan Home today, April 13, on Lovenox . Follow-up with oncology as scheduled Admission HPI Per Admitting Provider 70 yo female with PMH described below reports she was her normal state of health, when this AM she was found to have a cough with bloody sputum. Patient reports this happened on 3 occasions which led her to come to the ER. Patient denies any SOB, fever, chills, nausea, vomiting, worsening weakness, headache, chest pain, SOB, focal weakness, blurry vision, loss of stature. Discharge Exam General-alert and oriented x3, no fever, no chills HEENT-head atraumatic and normocephalic, pupils equal and reactive to light, extraocular muscles intact Neck-no lymphadenopathy or thyromegaly, trachea midline Chest-bilateral rhonchi. No wheezing. Cardiac-regular rate and rhythm, normal S1 and S2 Abdomen-normal bowel sounds, no hepatosplenomegaly Extremities-no cyanosis, clubbing, or edema Neuro-cranial nerves II through XII intact, motor and sensory function within normal limits, strength symmetrical, no focal deficits Psych-normal affect, normal mood Discharge Plan Discharge Items Patient Disposition: Home - Self-Care Reason For Visit: HEMOTYSIS,PULMONARY EMBOLI Discharge Diagnosis: Acute right lower lobe pulmonary embolism, transient hemoptysis Condition on Discharge: Fair Activity: Resume your previous activity Non-emergency contact: Primary Care Provider and Oncologist Call non-emergency contact if: your symptoms worsen Follow-up/Referrals: Kinza Sanchez, [Primary Care Provider] - Diet: Regular Addtl Attending Provider Instructions: Use Lovenox 50 mg subcutaneously every 12 hours. All other medications remain the same. See oncologist as soon as possible for follow-up Pending Studies at Discharge: No Stand-Alone Forms: Cephasonics, Smoking Cessation Medications and DC Order Prescriptions: New enoxaparin 60 mg/0.6 mL Syringe 50 mg subcut Q12H Qty: 60 0RF Continued polyethylene glycol 3350 [Miralax] 17 gram/dose powder 17 g PO DAILY PRN (Reason: Constipation) albuterol sulfate 90 mcg/actuation HFA aerosol inhaler 2 puff inhalation Q6H PRN (Reason: Shortness Of Breath Or Wheezing) sennosides [Senna Laxative] 8.6 mg tablet 8.6 mg PO BID PRN (Reason: Constipation) fentanyl 50 mcg/hr patch 72 hour 50 mcg transdermal Q3D oxycodone-acetaminophen 5-325 mg tablet 1 tab PO DIRECTED PRN (Reason: Pain) Rx Instructions: Every 4-6 hours as needed lidocaine HCl 4 % (40 mg/mL) solution See Rx Instructions .ROUTE .COMPLEX Rx Instructions: APPLY IT BY SOAKING 1-2 COTTON BALLS (OR MAKEUP PADS) AND PLACING THE COTTON BALL AT THE VAGINAL OPENING FOR 2-5 MINUTES urea 10 % cream 1 applic TOPICAL TID lidocaine HCl 2 % solution 10 ml PO DIRECTED Patient Comments: MIX EQUAL PARTS OF MAALOX, LIDOCAINE, AND BENADRYL (600ML OF EACH) SWISH AND SPIT 10ML ORALLY EVERY 4 HOURS Rx Instructions: MIX EQUAL PARTS OF MAALOX, LIDOCAINE, AND BENADRYL (600ML OF EACH) SWISH AND SPIT 10ML ORALLY EVERY 4 HOURS ondansetron HCl 8 mg tablet 8 mg PO Q8H PRN (Reason: Nausea And Vomiting) Discharge Orders: Discharge Order (Routine); Ordered 04/13/25 Ordered By: Xavier Bolanos Admission Data Admit Date/Time: 04/11/25 12:49 Attending Provider: Xavier Bolanos Admit Provider: Bonifacio Black Primary Care Provider: Kinza Sanchez Other Providers: Bonifacio Black Hospital Stay Data Consultations 04/11/25 12:39 ED Decision to Admit Stat Diagnostic Imagining Performed 04/11/25 10:29 CT angio chest PE protocol Stat Pending Results Patient Have Any Pending Studies at Discharge: No Discharge Instructions Given to Patient (Per Discharging Provider) Use Lovenox 50 mg subcutaneously every 12 hours. All other medications remain the same. See oncologist as soon as possible for follow-up Total Time Total Time Spent Total Time Spent (In Minutes): 45-minute Coding Level of Care Code 74142 INP/OBS DISCH >30 MIN Diagnoses Pulmonary embolism I26.99 Metastatic disease C79.9 Hemoptysis R04.2 Cancer related pain G89.3
== END 2025-04-13 13:42 | disposition home or self-care (01) | DRG 176 ==
LOC: ED 10:10 → SUATTDRO 12:49 → 4W 12:49